=== PATIENT | male | born 1945 | race Two or more races ===

== ENCOUNTER → 2017-03-23 | Outpatient (CLI) | payer BC, MEDICARE ==
[~2017-03-23] MED LIST: ATEN25TA PO; CITA10TA4 PO; LOVA20TA2 PO
--- NOTE | 2017-03-23 10:04 | KCIC ---
INDICATION: Neurogenic claudication. Chronic low back pain. TECHNIQUE: Sagittal T1, sagittal T2, sagittal STIR, axial T1, and axial T2 sequences are provided. Comparison is from April 14, 2016. FINDINGS: There is no malalignment. There is no marrow edema. There is no worrisome marrow lesion. There is mild diffuse disc desiccation, disc height is relatively maintained. There is epidural lipomatosis beginning at the level of L1-L2 and extending through L5-S1. This is most notable at the level of L4-L5. The conus medullaris is normal in signal intensity and in position. Subcutaneous edema is noted. Probable right renal cyst is partially included. The numbering system assumes 5 lumbar type vertebral bodies. Findings by individual level are as follows: T12-L1: There is no canal or foraminal compromise. L1-L2: Minimal disc bulge and facet hypertrophy are noted with minimal foraminal narrowing. L2-L3: Disc bulge is noted, eccentric to the left. Mild facet and ligamentum flavum hypertrophy are noted. Thecal sac is compressed down to 9 mm AP, mostly secondary to epidural lipomatosis. There is left lateral recess narrowing mostly secondary to the disc bulge. There is minimal foraminal narrowing. L3-L4: There is a diffuse disc bulge. There is [id number] facet and ligamentum flavum hypertrophy. There is an apparent right synovial cyst or degenerative cyst associated with hypertrophy ligamentum flavum. This measures 10 x 5 mm. This does not compress the thecal sac. Thecal sac is compressed down to 5 mm with minimal CSF surrounding the nerve roots, again mostly secondary to the epidural lipomatosis. Foraminal narrowing is minimal. L4-L5: Disc bulge and facet and ligamentum flavum hypertrophy are noted. Thecal sac is compressed down to 7 mm AP, again mostly secondary to the epidural lipomatosis. There is rkac-iz-[id number] left foraminal narrowing. L5-S1: There is a disc bulge and broad-based left paracentral protrusion. There is facet hypertrophy. There is no canal stenosis. There is tsac-mr-ssumzkyi left foraminal narrowing. IMPRESSION: Degenerative disc disease and facet and ligamentum flavum hypertrophy are similar to prior study. Epidural lipomatosis is the primary cause of compression of the thecal sac and is also similar to prior study. Electronically signed by: Abhi Mckeon MD (03/23/2017 10:00 AM) [facility]
== END | disposition home or self-care (01) ==
LOC: KCIC MRI 07:37
PROVIDERS: ATTEND Neurological Surgery
DX: M51.36 Other intervertebral disc degeneration, lumbar region (principal); G89.29 Other chronic pain; E88.2 Lipomatosis, not elsewhere classified
CPT/HCPCS: 72148

== ENCOUNTER → 2017-05-17 | Outpatient (CLI) | payer BC, MEDICARE ==
[~2017-05-17] MED LIST changes: +GADOBUTROL 7.5 MMOL/7.5 ML VIAL IV ONE
--- NOTE | 2017-05-17 12:11 | KCIC ---
MRI of the lumbar spine without and with contrast 05/17/2017 CLINICAL HISTORY: Low back pain. History of previous lumbar spine surgery. TECHNIQUE: Unenhanced T1-weighted and T2-weighted sagittal and axial and inversion recovery sagittal images of the lumbar spine were obtained. After the intravenous administration of 11 cc of Gadavist, enhanced T1-weighted sagittal and axial images of the lumbar spine were obtained. FINDINGS: Comparison study is dated 03/23/2017. Very mild S-shaped curvature of the thoracolumbar spine is seen. Degenerative signal changes are seen involving all of the disks of the lumbar spine. Degenerative signal changes are seen within the marrow surrounding these discs. The conus medullaris is normal morphology, position, and signal characteristics. At the L1-2 disc space there is a minimal generalized disc bulge. Degenerative changes are seen involving the facet joints bilaterally. These findings do not result in significant central spinal canal or neural foraminal stenosis. At the L2-3 disc space there is a mild to moderate generalized disc bulge. This is eccentric to the left. Degenerative changes are seen involving the facet joints bilaterally. There is mild ligamentum flavum hypertrophy bilaterally. There is prominence of the posterior epidural fat. These findings when combined result in mild central spinal canal stenosis. No neural foraminal stenosis is seen. At the L3-4 disc space there patient is post right hemilaminotomy. There is a mild to moderate generalized disc bulge. Degenerative changes are seen involving the facet joints bilaterally. There is mild to moderate left ligamentum flavum hypertrophy. A small right facet joint effusion is seen. The synovial cyst seen projecting medially from the right facet joint on the previous examination has been resected. Prominence of the posterior epidural fat is seen. These findings when combine result in mild central spinal canal stenosis. No neural foraminal stenosis is seen. At the L4-5 disc space there is a mild generalized disc bulge. Degenerative changes are seen involving the facet joints bilaterally. There is mild to moderate ligamentum flavum hypertrophy bilaterally. There is marked prominence of the posterior epidural fat. These findings when combined result in moderate central spinal canal stenosis. No neural foraminal stenosis is seen. At the L5-S1 disc space there is a moderate generalized disc bulge. Superimposed on this disc bulge is a central/left paracentral focal disc protrusion. This measures 4 mm in AP diameter. Degenerative changes are seen involving the facet joints bilaterally. There is mild ligamentum flavum hypertrophy. These findings when combined do not result in significant central spinal canal or neural foraminal stenosis. IMPRESSION: 1. The patient is post right hemilaminotomy with resection of a synovial cyst at L3-4. 2. The changes of degenerative disc disease are again seen throughout the lumbar spine. These findings when combined with prominence of the posterior epidural fat result in mild central spinal canal stenosis at L2-3 and L3-4 and moderate central spinal canal stenosis at L4-5. No neural foraminal stenosis is seen. Electronically signed by: Bridger Hardin MD (05/17/2017 12:08 PM) [facility]
== END | disposition home or self-care (01) ==
LOC: KCIC MRI 10:16
PROVIDERS: ATTEND Neurological Surgery
DX: M48.061 Spinal stenosis, lumbar region without neurogenic claudication (principal); M51.36 Other intervertebral disc degeneration, lumbar region; M71.38 Other bursal cyst, other site; Z96.643 Presence of artificial hip joint, bilateral
CPT/HCPCS: 72158; 82565; A9585

== ENCOUNTER 2018-09-30 14:58 | Inpatient (IN) | payer MEDICARE ==
[~2018-09-30] VITALS: Ht 172.7 cm; Wt 113.2 kg
[~2018-09-30 14:58] MED LIST changes: -GADOBUTROL 7.5 MMOL/7.5 ML VIAL IV ONE
[2018-09-30] MEDS ORDERED: fentaNYL PF VIAL 100 MCG/2 ML VIAL IV ONE ×2 (15:45→17:15)
[2018-09-30] MEDS ORDERED: ONDANSETRON PF 4 MG/2 ML VIAL. IV ONE (15:45)
[2018-09-30] MEDS ORDERED: IV NORMAL SALINE 1000ML BAG 1,000 ML IV ONE (15:45)
[2018-09-30 15:50] LABS: BASO # 0.1 x10^3/uL (0.0-0.2); BASO % 1 % (0-3); EOS # 0.3 x10^3/uL (0.0-0.7); EOS % 3 % (0-3); HEMATOCRIT 41.5 % (39.0-53.0); HEMOGLOBIN 14.1 g/dL (13.0-17.5); LYMPH # 1.4 x10^3/uL (1.0-4.8); LYMPH % 12 % (24-48); MEAN CORPUSCULAR HEMOGLOBIN 35 pg (25-35); MEAN CORPUSCULAR HGB CONC 34 g/dL (31-37); MEAN CORPUSCULAR VOLUME 104 fL (79-100); MONO # 1.3 x10^3/uL (0.0-1.1); MONO % 11 % (0-9); NEUT # 8.2 x10^3uL (1.8-7.7); NEUT % 73 % (31-73); PLATELET COUNT 223 x10^3/uL (140-400); RED BLOOD COUNT 3.98 x10^6/uL (4.30-5.70); RED CELL DISTRIBUTION WIDTH 12.9 % (11.5-14.5); WHITE BLOOD COUNT 11.3 x10^3/uL (4.0-11.0)
--- NOTE | 2018-09-30 15:51 | RAD ---
CHEST PA LATERAL History: EPIGASTRIC PAIN Comparison: 04/28/2009 portable chest x-ray exam. Findings: The cardiomediastinal silhouette is normal. Pulmonary vasculature is normal. The lungs are clear. No pleural effusion or pneumothorax is seen. There is no acute bone abnormality. Osteopenia noted. IMPRESSION: No acute cardiopulmonary process. Electronically signed by: Cornel Orourke MD (09/30/2018 3:48 PM) [facility]
[2018-09-30 15:54] LABS: FECAL OB PT POSITIVE (NEG)
--- NOTE | 2018-09-30 15:57 | PHYS DOC ---
Past Medical History Past Medical History: Depression, High Cholesterol, Hypertension, Hypothyroid Past Surgical History: Appendectomy, Other Additional Past Surgical Histo: HIP REPLACEMENT Alcohol Use: Occasionally Drug Use: None Adult General Chief Complaint Chief Complaint: ABDOMINAL PAIN HPI HPI Patient is a 73 year old male who presents with rectal pain with no bowel movement since . Patient states yesterday he had a small bowel movement of hard round stool. Patient states he also is having urinary retention and hasn 't drank much fluids today but he has been eating and drinking. Patient states the only thing he has had today is coffee and a cookie. Patient states he did eat yesterday and they did go out to eat last night. Patient denies nausea and vomiting, fevers, chest pain, shortness of air, dizziness. Patient is rating his pain a 9 out of 10 and states he feels pressure in his lower abdomen and rectum and is cramping at times. Review of Systems Review of Systems Constitutional: Denies fever or chills [] Eyes: Denies change in visual acuity, redness, or eye pain [] HENT: Denies nasal congestion or sore throat [] Respiratory: Denies cough or shortness of breath [] Cardiovascular: No additional information not addressed in HPI [] GI: abdominal pain, denies nausea, vomiting, bloody stools or diarrhea [] : Rectal pain. Urinary retention. Denies dysuria or hematuria [] Musculoskeletal: Denies back pain or joint pain [] Integument: Denies rash or skin lesions [] Neurologic: Denies headache, focal weakness or sensory changes [] All other systems were reviewed and found to be within normal limits, except as documented in this note. Current Medications Current Medications Current Medications Medications (Trade) Dose Ordered Sig/[facility] Start Time Stop Time Status Last Admin Dose Admin Acetaminophen (Tylenol) 650 mg PRN Q4HRS PRN 09/30/18 18:30 10/01/18 18:29 Fentanyl Citrate (Fentanyl 2ml Vial) 50 mcg PRN Q1HR PRN 09/30/18 18:30 10/01/18 18:29 Iohexol (Omnipaque 300 Mg/ml) 75 ml 1X ONCE 09/30/18 16:00 09/30/18 16:01 DC 09/30/18 16:00 75 ML Ondansetron HCl (Zofran) 4 mg PRN Q8HRS PRN 09/30/18 18:30 10/01/18 18:29 Sodium Chloride 1,000 ml @ 1,000 mls/hr 1X ONCE 09/30/18 15:45 09/30/18 16:44 DC 09/30/18 16:01 1,000 MLS/HR Allergies Allergies Allergies Coded Allergies Type Severity Reaction Last Updated Verified No Known Drug Allergies 10/16/15 No Physical Exam Physical Exam Constitutional: Well developed, well nourished, no acute distress, non-toxic appearance. [] HENT: Normocephalic, atraumatic, bilateral external ears normal, oropharynx moist, no oral exudates, nose normal. [] Eyes: PERRLA, EOMI, conjunctiva normal, no discharge. [] Neck: Normal range of motion, no tenderness, supple, no stridor. [] Cardiovascular:Heart rate regular rhythm, no murmur [] Lungs & Thorax: Bilateral breath sounds clear to auscultation [] Abdomen: Bowel sounds normal, soft, no tenderness, no masses, no pulsatile masses. [] Skin: Warm, dry, no erythema, no rash. [] Back: No tenderness, no CVA tenderness. [] Extremities: No tenderness, no cyanosis, no clubbing, ROM intact, no edema. [] Neurologic: Alert and oriented X 3, normal motor function, normal sensory function, no focal deficits noted. [] Psychologic: Affect normal, judgement normal, mood normal. [] Current Patient Data Vital Signs Vital Signs Date Time Temp Pulse Resp B/P (MAP) Pulse Ox O2 Delivery O2 Flow Rate FiO2 09/30/18 17:58 14 98 Room Air 09/30/18 15:08 98.8 77 145/85 (105) 98.8 Lab Values Laboratory Tests Test 09/30/18 15:35 White Blood Count 11.3 x10^3/uL (4.0-11.0) H Red Blood Count 3.98 x10^6/uL (4.30-5.70) L Hemoglobin 14.1 g/dL (13.0-17.5) Hematocrit 41.5 % (39.0-53.0) Mean Corpuscular Volume 104 fL (79-100) H Mean Corpuscular Hemoglobin 35 pg (25-35) Mean Corpuscular Hemoglobin Concent 34 g/dL (31-37) Red Cell Distribution Width 12.9 % (11.5-14.5) Platelet Count 223 x10^3/uL (140-400) Neutrophils (%) (Auto) 73 % (31-73) Lymphocytes (%) (Auto) 12 % (24-48) L Monocytes (%) (Auto) 11 % (0-9) H Eosinophils (%) (Auto) 3 % (0-3) Basophils (%) (Auto) 1 % (0-3) Neutrophils # (Auto) 8.2 x10^3uL (1.8-7.7) H Lymphocytes # (Auto) 1.4 x10^3/uL (1.0-4.8) Monocytes # (Auto) 1.3 x10^3/uL (0.0-1.1) H Eosinophils # (Auto) 0.3 x10^3/uL (0.0-0.7) Basophils # (Auto) 0.1 x10^3/uL (0.0-0.2) Stool Occult Blood Positive (NEG) Sodium Level 141 mmol/L (136-145) Potassium Level 3.8 mmol/L (3.5-5.1) Chloride Level 102 mmol/L (98-107) Carbon Dioxide Level 30 mmol/L (21-32) Anion Gap 9 (6-14) Blood Urea Nitrogen 22 mg/dL (8-26) Creatinine 1.0 mg/dL (0.7-1.3) Estimated GFR (Cockcroft-Gault) 73.2 BUN/Creatinine Ratio 22 (6-20) H Glucose Level 95 mg/dL (70-99) Calcium Level 9.1 mg/dL (8.5-10.1) Total Bilirubin 0.5 mg/dL (0.2-1.0) Aspartate Amino Transferase (AST) 22 U/L (15-37) Alanine Aminotransferase (ALT) 45 U/L (16-63) Alkaline Phosphatase 88 U/L (46-116) Troponin I Quantitative 0.114 ng/mL (0.000-0.055) Total Protein 7.9 g/dL (6.4-8.2) Albumin 3.6 g/dL (3.4-5.0) Albumin/Globulin Ratio 0.8 (1.0-1.7) L Lipase 113 U/L (73-393) Laboratory Tests 09/30/18 15:35 Laboratory Tests 09/30/18 15:35 EKG EKG Sinus Rhythm and no STEMI Interpretation Time: [address] Womack Radiology/Procedures Radiology/Procedures [] Impressions: [facility] [address] [place] [address] IMAGING REPORT Signed PATIENT: CAT DELGADO ACCOUNT: [id number] : 1945 LOCATION: ER AGE: 73 SEX: M EXAM STATUS: PRE ER ORD. PHYSICIAN: SAMANTHA ROSALES APRN REASON: abdominal pain, constipation PROCEDURE: CT ABD PELV W/ IV CONTRST ONLY CT SCAN OF THE ABDOMEN AND PELVIS WITH IV CONTRAST. History: Abdominal pain Comparison:None. Procedure: Contiguous axial images of the abdomen and pelvis were performed after the administration of 75 cc of Omni 300 IV contrast and without oral contrast. CT Abdomen with contrast: Findings: Liver: Unremarkable Spleen: Unremarkable Pancreas: Unremarkable Adrenal Glands: Unremarkable Kidneys: There is a 2 cm low-density lesion arising from the upper pole of the right kidney laterally. 6 mm hypoattenuating lesion lesion the left is too small to characterize. There is no mass or lymphadenopathy. There is no free air. There is no free fluid. CT Pelvis with Contrast: Findings: The urinary bladder appears normal. There is no free fluid. There is no lymphadenopathy. The appendix is not seen. There is beam Nelson artifact due to prior bilateral total hip arthroplasty. Impression: 1. Indeterminate lesions in the kidneys bilaterally. Patient should have follow-up ultrasound kidneys as an outpatient. 2. No acute findings. PQRS Compliance Statement: One or more of the following individualized dose reduction techniques were utilized for this examination: 1. Automated exposure control 2. Adjustment of the mA and/or kV according to patient size 3. Use of iterative reconstruction technique Electronically signed by: Kulwinder Baez III, MD (09/30/2018 4:47 PM) [facility] DICTATED and SIGNED BY: KULWINDER BAEZ III, MD DATE: 09/30/18 1647 [facility] [address] [place] [address] IMAGING REPORT Signed PATIENT: CAT DELGADO ACCOUNT: [id number] : 1945 LOCATION: ER AGE: 73 SEX: M EXAM STATUS: PRE ER ORD. PHYSICIAN: SAMANTHA ROSALES APRN REASON: pain PROCEDURE: CHEST PA & LATERAL CHEST PA LATERAL History: EPIGASTRIC PAIN Comparison: 04/28/2009 portable chest x-ray exam. Findings: The cardiomediastinal silhouette is normal. Pulmonary vasculature is normal. The lungs are clear. No pleural effusion or pneumothorax is seen. There is no acute bone abnormality. Osteopenia noted. IMPRESSION: No acute cardiopulmonary process. Electronically signed by: Cornel Leyva MD (09/30/2018 3:48 PM) [facility] DICTATED and SIGNED BY: CORNEL LEYVA MD DATE: 09/30/18 1548 Course & Med Decision Making Course & Med Decision Making Patient is a 73 year old male who presents with rectal pain with no bowel movement since . Patient states yesterday he had a small bowel movement of hard round stool. Patient states he also is having urinary retention and hasn 't drank much fluids today but he has been eating and drinking. Patient states the only thing he has had today is coffee and a cookie. Patient states he did eat yesterday and they did go out to eat last night. Patient denies nausea and vomiting, fevers, chest pain, shortness of air, dizziness. Patient is rating his pain a 9 out of 10 and states he feels pressure in his lower abdomen and rectum and is cramping at times. Alert and oriented. Speaks in full clear senses. Mucous membranes are moist. Skin is pink warm and dry. Vital signs are within normal limits. Patient states he does not feel distended or bloated he just feels pressure in his lower abdomen. Abdomen is slightly distended but soft and tender to right and left lower quadrants and lower mid abdomen. Lungs are clear to auscultation all lobes. Rectal exam is done and fecal occult sent to lab. There is stool in rectal vault that can be felt at the tip of my index finger. The patient does have 2 dime-sized nonbleeding, nontender humeral rates to 11 and 12:00 on the rectum. Bladder scan shows 639ml in the bladder. Patient is currently refusing a catheter states he wanted to wait after CT scanning and possible enema to see if he can urinate on his own. Troponin is elevated at 0.114. EKG showed no STEMI. CT shows 1. Indeterminate lesions in the kidneys bilaterally. Patient should have follow-up ultrasound kidneys as an outpatient. 2. No acute findings. Chest xray shows no acute findings. Heart score 6. Fecal occult positive for blood. Patient had a soapsuds enema and had a bowel movement and urinated. Patient states he is feeling much better. Post void residual was 119ml and this was not done directly after the patient voided, so some time had passed. Patient is notified of his CT, x-ray, blood results. Patient is told that he will be admitted to the hospital with consult of GI and cardiology. I spoke to Dr. Valdovinos concerning admission of the patient. Rectal Exam: Normal tone, No mass, Positive control Stool: Brown Guaiac: Positive Krista HERNANDEZ marine architect Dragon Disclaimer Dragon Disclaimer This electronic medical record was generated, in whole or in part, using a voice recognition dictation system. Departure Departure Impression: Primary Impression: Elevated troponin Additional Impression: Abdominal pain Disposition: ADMITTED INPATIENT Admitting Physician: Bright Perry Condition: STABLE Referrals: BRIGHT LONDON DO (PCP) Problem Qualifiers Additional Impression: Abdominal pain Abdominal location: lower abdomen, unspecified Qualified Codes: R10.30 - Lower abdominal pain, unspecified SAMANTHA ROSALES APRN Sep 30, 2018 15:57
[2018-09-30 15:59] LABS: CALCIUM 9.1 mg/dL (8.5-10.1); GFR 73.2; POTASSIUM 3.8 mmol/L (3.5-5.1)
[2018-09-30] MEDS ORDERED: IOHEXOL 300 MG/ML 100ML VIAL. IV ONE (16:00)
[2018-09-30 16:05] LABS: ALBUMIN 3.6 g/dL (3.4-5.0); ALBUMIN/GLOBULIN RATIO 0.8 (1.0-1.7); TOTAL BILIRUBIN 0.5 mg/dL (0.2-1.0); TOTAL PROTEIN 7.9 g/dL (6.4-8.2)
--- NOTE | 2018-09-30 16:51 | RAD ---
CT SCAN OF THE ABDOMEN AND PELVIS WITH IV CONTRAST. History: Abdominal pain Comparison:None. Procedure: Contiguous axial images of the abdomen and pelvis were performed after the administration of 75 cc of Omni 300 IV contrast and without oral contrast. CT Abdomen with contrast: Findings: Liver: Unremarkable Spleen: Unremarkable Pancreas: Unremarkable Adrenal Glands: Unremarkable Kidneys: There is a 2 cm low-density lesion arising from the upper pole of the right kidney laterally. 6 mm hypoattenuating lesion lesion the left is too small to characterize. There is no mass or lymphadenopathy. There is no free air. There is no free fluid. CT Pelvis with Contrast: Findings: The urinary bladder appears normal. There is no free fluid. There is no lymphadenopathy. The appendix is not seen. There is beam Nelson artifact due to prior bilateral total hip arthroplasty. Impression: 1. Indeterminate lesions in the kidneys bilaterally. Patient should have follow-up ultrasound kidneys as an outpatient. 2. No acute findings. PQRS Compliance Statement: One or more of the following individualized dose reduction techniques were utilized for this examination: 1. Automated exposure control 2. Adjustment of the mA and/or kV according to patient size 3. Use of iterative reconstruction technique Electronically signed by: John Stock III, MD (09/30/2018 4:47 PM) [facility]
[2018-09-30] MEDS ORDERED: ACETAMINOPHEN 325 MG TABLET. PO PRN (18:30)
[2018-09-30] MEDS ORDERED: fentaNYL PF VIAL 100 MCG/2 ML VIAL IV PRN (18:30)
[2018-09-30] MEDS ORDERED: ONDANSETRON PF 4 MG/2 ML VIAL. IV PRN (18:30)
[2018-09-30 19:50] VITALS: BP 141/81
--- NOTE | 2018-09-30 21:19 | PDOC1 ---
History and Physical Date of Admission Date of Admission DATE: 09/30/18 TIME: 21:18 Identification/Chief Complaint Chief Complaint SEEN IN ER , presents with rectal pain with no bowel movement since . Patient states yesterday he had a small bowel movement of hard round stool. Patient states he also is having urinary retention and hasn't drank much fluids today but he has been eating and drinking. Patient states the only thing he has had today is coffee and a cookie. Patient states he did eat yesterday and they did go out to eat last night. Patient denies nausea and vomiting, fevers, chest pain, shortness of air, dizziness. Patient is rating his pain a 9 out of 10 and states he feels pressure in his lower abdomen and rectum and is cramping GIVEN TAP H2O ENEMA IN ER Past Medical History Past Medical History Past Medical History Past Medical History: Depression, High Cholesterol, Hypertension, Hypothyroid Past Surgical History: Appendectomy, Other Additional Past Surgical Histo: HIP REPLACEMENT Alcohol Use: Occasionally Drug Use: None family hx obesity Cardiovascular: Hyperlipidemia Family History Family History: Hypertension Social History Smoke: No ALCOHOL: none Drugs: None Current Problem List Problem List Problems Medical Problems: (1) Abdominal pain Status: Acute (2) Elevated troponin Status: Acute Current Medications Current Medications Current Medications Fentanyl Citrate (Fentanyl 2ml Vial) 50 mcg 1X ONCE IV Last administered on at 16:03; Start 09/30/18 at 15:45; Stop 09/30/18 at 15:50; Status DC Ondansetron HCl (Zofran) 4 mg 1X ONCE IV Last administered on 09/30/18 16:01 ; Start 09/30/18 at 15:45; Stop 09/30/18 at 15:50; Status DC Sodium Chloride 1,000 ml @ 1,000 mls/hr 1X ONCE IV Last administered on 16:01; Start 09/30/18 at 15:45; Stop 09/30/18 at 16:44; Status DC Iohexol (Omnipaque 300 Mg/ml) 75 ml 1X ONCE IV Last administered on 09/30/18 16:00; Start 09/30/18 at 16:00; Stop 09/30/18 at 16:01; Status DC Fentanyl Citrate (Fentanyl 2ml Vial) 50 mcg 1X ONCE IV Last administered on at 17:58; Start 09/30/18 at 17:15; Stop 09/30/18 at 17:16; Status DC Ondansetron HCl (Zofran) 4 mg PRN Q8HRS PRN IV NAUSEA/VOMITING; Start 09/30/18 at 18:30; Stop 10/01/18 at 18:29 Fentanyl Citrate (Fentanyl 2ml Vial) 50 mcg PRN Q1HR PRN IV PAIN; Start at 18:30; Stop 10/01/18 at 18:29 Acetaminophen (Tylenol) 650 mg PRN Q4HRS PRN PO FEVER; Start 09/30/18 at 18:30 ; Stop 10/01/18 at 18:29 Active Scripts Active Reported Citalopram Hbr (Citalopram Hydrobromide) 10 Mg Tablet 1 Tab PO DAILY Atenolol 25 Mg Tablet 1 Tab PO DAILY Lovastatin 20 Mg Tablet 1 Tab PO DAILY Allergies Allergies: Coded Allergies: No Known Drug Allergies (Unverified , 10/16/15) ROS Review of System Review of Systems Review of Systems Constitutional: Denies fever or chills [] Eyes: Denies change in visual acuity, redness, or eye pain [] HENT: Denies nasal congestion or sore throat [] Respiratory: Denies cough or shortness of breath [] Cardiovascular: No additional information not addressed in HPI [] GI: abdominal pain, denies nausea, vomiting, bloody stools or diarrhea [] : Rectal pain. Urinary retention. Denies dysuria or hematuria [] Musculoskeletal: Denies back pain or joint pain [] Integument: Denies rash or skin lesions [] Neurologic: Denies headache, focal weakness or sensory changes [] 14 PT systems were reviewed and found to be within normal limits, except as documented PSYCHOLOGICAL ROS: No: Anxiety, Behavioral Disorder, Concentration difficultie , Decreased libido, Depression, Disorientation, Hallucinations, Hostility, Irritablity, Memory difficulties, Mood Swings, Obsessive thoughts, Physical abuse, Sexual abuse, Sleep disturbances, Suicidal ideation, Other Eyes: No Blurry vision, No Decreased vision, No Double vision, No Dry eyes, No Excessive tearing, No Eye Pain, No Itchy Eyes, No Loss of vision, No Photophobia , No Scotomata, No Uses contacts, No Uses glasses, No Other Respiratory: No: Cough, Hemoptysis, Orthopnea, Pleuritic Pain, Shortness of breath, SOB with excertion, Sputum Changes, Stridor, Tachypnea, Wheezing, Other Gastrointestinal: Yes Constipation Skin: No Dry Skin, No Eczema, No Hair Changes, No Lumps, No Mole Changes, No Mottling, No Nail Changes, No Pruritus, No Rash, No Skin Lesion Changes, No Other, No Acne Physical Exam Physical Exam Physical Exam Physical Exam Constitutional: Well developed, well nourished, MILD acute distress, non-toxic appearance. [] HENT: Normocephalic, atraumatic, bilateral external ears normal, oropharynx moist, no oral exudates, nose normal. [] Eyes: PERRLA, EOMI, conjunctiva normal, no discharge. [] Neck: Normal range of motion, no tenderness, supple, no stridor. [] Cardiovascular:Heart rate regular rhythm, no murmur [] Lungs & Thorax: Bilateral breath sounds clear to auscultation [] Abdomen: Bowel sounds normal, soft, no tenderness, no masses, no pulsatile masses. [] Skin: Warm, dry, no erythema, no rash. [] Back: No tenderness, no CVA tenderness. [] Extremities: No tenderness, no cyanosis, no clubbing, ROM intact, no edema. [] Neurologic: Alert and oriented X 3, normal motor function, normal sensory function, no focal deficits noted. [] Psychologic: Affect normal, judgement normal, mood normal. [] General: Oriented X3, Cooperative, mild distress HEENT: Atraumatic, PERRLA, EOMI, Mucous membr. moist/pink Lungs: Clear to auscultation, Normal air movement Heart: RRR Breasts: Not examined Abdomen: Soft Rectal Exam: not examined Extremities: No cyanosis Skin: No rashes, No breakdown Neuro: Normal speech, Cranial nerves 3-12 NL Psych/Mental Status: Mental status NL, Mood NL Vitals Vitals Vital Signs Date Time Temp Pulse Resp B/P (MAP) Pulse Ox O2 Delivery O2 Flow Rate FiO2 09/30/18 19:50 98.2 64 18 141/81 (101) 96 Room Air 98.2 Labs Labs Laboratory Tests Test 09/30/18 15:35 White Blood Count 11.3 x10^3/uL (4.0-11.0) Red Blood Count 3.98 x10^6/uL (4.30-5.70) Hemoglobin 14.1 g/dL (13.0-17.5) Hematocrit 41.5 % (39.0-53.0) Mean Corpuscular Volume 104 fL (79-100) Mean Corpuscular Hemoglobin 35 pg (25-35) Mean Corpuscular Hemoglobin Concent 34 g/dL (31-37) Red Cell Distribution Width 12.9 % (11.5-14.5) Platelet Count 223 x10^3/uL (140-400) Neutrophils (%) (Auto) 73 % (31-73) Lymphocytes (%) (Auto) 12 % (24-48) Monocytes (%) (Auto) 11 % (0-9) Eosinophils (%) (Auto) 3 % (0-3) Basophils (%) (Auto) 1 % (0-3) Neutrophils # (Auto) 8.2 x10^3uL (1.8-7.7) Lymphocytes # (Auto) 1.4 x10^3/uL (1.0-4.8) Monocytes # (Auto) 1.3 x10^3/uL (0.0-1.1) Eosinophils # (Auto) 0.3 x10^3/uL (0.0-0.7) Basophils # (Auto) 0.1 x10^3/uL (0.0-0.2) Stool Occult Blood Positive (NEG) Sodium Level 141 mmol/L (136-145) Potassium Level 3.8 mmol/L (3.5-5.1) Chloride Level 102 mmol/L (98-107) Carbon Dioxide Level 30 mmol/L (21-32) Anion Gap 9 (6-14) Blood Urea Nitrogen 22 mg/dL (8-26) Creatinine 1.0 mg/dL (0.7-1.3) Estimated GFR (Cockcroft-Gault) 73.2 BUN/Creatinine Ratio 22 (6-20) Glucose Level 95 mg/dL (70-99) Calcium Level 9.1 mg/dL (8.5-10.1) Total Bilirubin 0.5 mg/dL (0.2-1.0) Aspartate Amino Transf (AST/SGOT) 22 U/L (15-37) Alanine Aminotransferase (ALT/SGPT) 45 U/L (16-63) Alkaline Phosphatase 88 U/L (46-116) Troponin I Quantitative 0.114 ng/mL (0.000-0.055) Total Protein 7.9 g/dL (6.4-8.2) Albumin 3.6 g/dL (3.4-5.0) Albumin/Globulin Ratio 0.8 (1.0-1.7) Lipase 113 U/L (73-393) Laboratory Tests Test 09/30/18 15:35 White Blood Count 11.3 x10^3/uL (4.0-11.0) Red Blood Count 3.98 x10^6/uL (4.30-5.70) Hemoglobin 14.1 g/dL (13.0-17.5) Hematocrit 41.5 % (39.0-53.0) Mean Corpuscular Volume 104 fL (79-100) Mean Corpuscular Hemoglobin 35 pg (25-35) Mean Corpuscular Hemoglobin Concent 34 g/dL (31-37) Red Cell Distribution Width 12.9 % (11.5-14.5) Platelet Count 223 x10^3/uL (140-400) Neutrophils (%) (Auto) 73 % (31-73) Lymphocytes (%) (Auto) 12 % (24-48) Monocytes (%) (Auto) 11 % (0-9) Eosinophils (%) (Auto) 3 % (0-3) Basophils (%) (Auto) 1 % (0-3) Neutrophils # (Auto) 8.2 x10^3uL (1.8-7.7) Lymphocytes # (Auto) 1.4 x10^3/uL (1.0-4.8) Monocytes # (Auto) 1.3 x10^3/uL (0.0-1.1) Eosinophils # (Auto) 0.3 x10^3/uL (0.0-0.7) Basophils # (Auto) 0.1 x10^3/uL (0.0-0.2) Stool Occult Blood Positive (NEG) Sodium Level 141 mmol/L (136-145) Potassium Level 3.8 mmol/L (3.5-5.1) Chloride Level 102 mmol/L (98-107) Carbon Dioxide Level 30 mmol/L (21-32) Anion Gap 9 (6-14) Blood Urea Nitrogen 22 mg/dL (8-26) Creatinine 1.0 mg/dL (0.7-1.3) Estimated GFR (Cockcroft-Gault) 73.2 BUN/Creatinine Ratio 22 (6-20) Glucose Level 95 mg/dL (70-99) Calcium Level 9.1 mg/dL (8.5-10.1) Total Bilirubin 0.5 mg/dL (0.2-1.0) Aspartate Amino Transf (AST/SGOT) 22 U/L (15-37) Alanine Aminotransferase (ALT/SGPT) 45 U/L (16-63) Alkaline Phosphatase 88 U/L (46-116) Troponin I Quantitative 0.114 ng/mL (0.000-0.055) Total Protein 7.9 g/dL (6.4-8.2) Albumin 3.6 g/dL (3.4-5.0) Albumin/Globulin Ratio 0.8 (1.0-1.7) Lipase 113 U/L (73-393) Images Images CT SCAN OF THE ABDOMEN AND PELVIS WITH IV CONTRAST. History: Abdominal pain Comparison:None. Procedure: Contiguous axial images of the abdomen and pelvis were performed after the administration of 75 cc of Omni 300 IV contrast and without oral contrast. CT Abdomen with contrast: Findings: Liver: Unremarkable Spleen: Unremarkable Pancreas: Unremarkable Adrenal Glands: Unremarkable Kidneys: There is a 2 cm low-density lesion arising from the upper pole of the right kidney laterally. 6 mm hypoattenuating lesion lesion the left is too small to characterize. There is no mass or lymphadenopathy. There is no free air. There is no free fluid. CT Pelvis with Contrast: Findings: The urinary bladder appears normal. There is no free fluid. There is no lymphadenopathy. The appendix is not seen. There is beam Nelson artifact due to prior bilateral total hip arthroplasty. Impression: 1. Indeterminate lesions in the kidneys bilaterally. Patient should have follow-up ultrasound kidneys as an outpatient. 2. No acute findings. PQRS Compliance Statement: One or more of the following individualized dose reduction techniques were utilized for this examination: 1. Automated exposure control 2. Adjustment of the mA and/or kV according to patient size 3. Use of iterative reconstruction technique Electronically signed by: John Stock III, MD (09/30/2018 4:47 PM) [facility] [place] [facility] [place] Prophylaxis Ordered VTE Prophylaxis Devices: Yes VTE Pharmacological Prophylaxi: Yes Assessment/Plan Assessment/Plan IMPRESSION 1. URINARY RETENTION 2. FECAL IMPACTION 3. MORBID OBESITY 4. HYPERLIPIDEMIA PLAN ENEMA UNTIL CLEAR STRAIGHT CATH FOR RETENTION HOME MEDS INC ACTIVITY DVT PROPHYLAXIS PEDRITO LEWIS MD Sep 30, 2018 21:19
[2018-09-30] MEDS: ENOXAPARIN 40 MG/0.4 ML SYRINGE. SQ SCH (21:30)
[2018-09-30 23:06] VITALS: BP 138/79
[2018-09-30 23:58] LABS: BILIRUBIN,URINE NEGATIVE (NEG); CLARITY,URINE CLEAR; COLOR,URINE YELLOW; NITRITE,URINE NEGATIVE (NEG); PH,URINE 6.5; PROTEIN,URINE NEGATIVE (NEG-TRACE)
[2018-10-01 00:22] LABS: BACTERIA,URINE 0 /HPF (0-FEW); HYALINE CASTS, URINE FEW /HPF; SQUAMOUS EPITHELIAL CELL,UR MOD /LPF
[2018-10-01] MEDS ORDERED: LEVO50TA5 PO (01:59)
[2018-10-01] MEDS ORDERED: CITA20TA6 PO (01:59)
[2018-10-01] MEDS ORDERED: LOVA40TA2 PO (01:59)
[2018-10-01] MEDS ORDERED: ATEN50TA PO (01:59)
[2018-10-01 02:50] VITALS: BP 136/80
[2018-10-01 06:21] LABS: BASO % 0 % (0-3); EOS # 0.4 x10^3/uL (0.0-0.7); EOS % 5 % (0-3); HEMATOCRIT 36.5 % (39.0-53.0); HEMOGLOBIN 12.3 g/dL (13.0-17.5); LYMPH # 1.2 x10^3/uL (1.0-4.8); LYMPH % 16 % (24-48); MEAN CORPUSCULAR HEMOGLOBIN 35 pg (25-35); MEAN CORPUSCULAR HGB CONC 34 g/dL (31-37); MEAN CORPUSCULAR VOLUME 105 fL (79-100); MONO # 0.7 x10^3/uL (0.0-1.1); MONO % 9 % (0-9); NEUT # 5.5 x10^3uL (1.8-7.7); NEUT % 71 % (31-73); PLATELET COUNT 190 x10^3/uL (140-400); RED CELL DISTRIBUTION WIDTH 12.7 % (11.5-14.5); WHITE BLOOD COUNT 7.8 x10^3/uL (4.0-11.0)
[2018-10-01 06:28] LABS: CALCIUM 8.5 mg/dL (8.5-10.1); CREATININE 0.9 mg/dL (0.7-1.3); GFR 82.7; POTASSIUM 4.3 mmol/L (3.5-5.1)
[2018-10-01 07:15] VITALS: BP 148/88
--- NOTE | 2018-10-01 08:07 | EKG ---
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
--- NOTE | 2018-10-01 09:02 | PDOC2 ---
IZABELAADAMFUADYUMIKO RIVERO 10/01/18 0902: CARDIAC CONSULT DATE OF CONSULT Date of Consult DATE: 10/01/18 TIME: 08:53 REASON FOR CONSULT Reason for Consult: Elevated troponin REFERRING PHYSICIAN Referring Physician: Rylie Chaves APRN SOURCE Source: Chart review, Patient HISTORY OF PRESENT ILLNESS HISTORY OF PRESENT ILLNESS This is a 73 yo male who presented secondary to constipation since Monday. Strained multiple times, but was unable to have an significant relief. Began to have difficulty urinating so he came to the ED for further evaluation. Troponin was checked in ED for unknown reasons and was noted to be mildly elevated, which prompted this consult. Was given enema in ED, which significantly improved symptoms. Ivette any chest pain, palpitations, dizziness, diaphoresis, orthopnea, or LE edema. Does reports KIRKLAND, which has been present for the last couple of years. Primary care referred for stress test last year at [facility] due to KIRKLAND, which he reports as normal. PAST MEDICAL HISTORY Cardiovascular: HTN, Hyperlipidemia Pulmonary: No pertinent hx CENTRAL NERVOUS SYSTEM: Other (no pertinent hx) GI: Constipation, GERD, Other (Desai's esophagus) Heme/Onc: No pertinent hx Hepatobiliary: No pertinent hx Psych: Anxiety Musculoskeletal: low back pain, Osteoarthritis Rheumatologic: No pertinent hx Infectious disease: No pertinent hx ENT: No pertinent hx Renal/: No pertinent hx Endocrine: Hypothyroidism Dermatology: No pertinent hx PAST SURGICAL HISTORY Past Surgical History: Appendectomy, Total hip replacement (bilateral ), Other (back surgery) FAMILY HISTORY Family History: Coronary Artery Disease (father ), High Cholestrol SOCIAL HISTORY Smoke: Quit (1990) ALCOHOL: occassional Drugs: None Lives: with Family CURRENT MEDICATIONS CURRENT MEDICATIONS Current Medications Medications (Trade) Dose Ordered Sig/Xiao Route PRN Reason Start Time Stop Time Status Last Admin Dose Admin Fentanyl Citrate (Fentanyl 2ml Vial) 50 mcg 1X ONCE IV 09/30/18 15:45 09/30/18 15:50 DC 09/30/18 16:03 Ondansetron HCl (Zofran) 4 mg 1X ONCE IV 09/30/18 15:45 09/30/18 15:50 DC 09/30/18 16:01 Sodium Chloride 1,000 ml @ 1,000 mls/hr 1X ONCE IV 09/30/18 15:45 09/30/18 16:44 DC 09/30/18 16:01 Iohexol (Omnipaque 300 Mg/ml) 75 ml 1X ONCE IV 09/30/18 16:00 09/30/18 16:01 DC 09/30/18 16:00 Fentanyl Citrate (Fentanyl 2ml Vial) 50 mcg 1X ONCE IV 09/30/18 17:15 09/30/18 17:16 DC 09/30/18 17:58 ALLERGIES ALLERGIES: Coded Allergies: No Known Drug Allergies (Unverified , 10/16/15) ROS Review of System 14 point ROS conducted with pertinent positives noted above in HPI. PHYSICAL EXAM General: Alert, Oriented X3, Cooperative, No acute distress HEENT: Atraumatic, Mucous membr. moist/pink Lungs: Clear to auscultation Heart: Regular rate, Normal S1, Normal S2 Abdomen: Soft, No tenderness Extremities: No edema, Normal pulses Skin: No significant lesion Neuro: Normal speech, Sensation intact Psych/Mental Status: Mental status NL, Mood NL MUSCULOSKELETAL: No deformity VITALS VITALS Vital Signs Date Time Temp Pulse Resp B/P (MAP) Pulse Ox O2 Delivery O2 Flow Rate FiO2 10/01/18 07:15 98.5 65 18 148/88 (108) 97 Room Air 98.5 LABS Lab: Laboratory Tests Test 09/30/18 15:35 09/30/18 21:25 09/30/18 23:45 10/01/18 05:43 White Blood Count 11.3 x10^3/uL (4.0-11.0) 7.8 x10^3/uL (4.0-11.0) Red Blood Count 3.98 x10^6/uL (4.30-5.70) 3.50 x10^6/uL (4.30-5.70) Hemoglobin 14.1 g/dL (13.0-17.5) 12.3 g/dL (13.0-17.5) Hematocrit 41.5 % (39.0-53.0) 36.5 % (39.0-53.0) Mean Corpuscular Volume 104 fL (79-100) 105 fL (79-100) Mean Corpuscular Hemoglobin 35 pg (25-35) 35 pg (25-35) Mean Corpuscular Hemoglobin Concent 34 g/dL (31-37) 34 g/dL (31-37) Red Cell Distribution Width 12.9 % (11.5-14.5) 12.7 % (11.5-14.5) Platelet Count 223 x10^3/uL (140-400) 190 x10^3/uL (140-400) Neutrophils (%) (Auto) 73 % (31-73) 71 % (31-73) Lymphocytes (%) (Auto) 12 % (24-48) 16 % (24-48) Monocytes (%) (Auto) 11 % (0-9) 9 % (0-9) Eosinophils (%) (Auto) 3 % (0-3) 5 % (0-3) Basophils (%) (Auto) 1 % (0-3) 0 % (0-3) Neutrophils # (Auto) 8.2 x10^3uL (1.8-7.7) 5.5 x10^3uL (1.8-7.7) Lymphocytes # (Auto) 1.4 x10^3/uL (1.0-4.8) 1.2 x10^3/uL (1.0-4.8) Monocytes # (Auto) 1.3 x10^3/uL (0.0-1.1) 0.7 x10^3/uL (0.0-1.1) Eosinophils # (Auto) 0.3 x10^3/uL (0.0-0.7) 0.4 x10^3/uL (0.0-0.7) Basophils # (Auto) 0.1 x10^3/uL (0.0-0.2) 0.0 x10^3/uL (0.0-0.2) Stool Occult Blood Positive (NEG) Sodium Level 141 mmol/L (136-145) 142 mmol/L (136-145) Potassium Level 3.8 mmol/L (3.5-5.1) 4.3 mmol/L (3.5-5.1) Chloride Level 102 mmol/L (98-107) 105 mmol/L (98-107) Carbon Dioxide Level 30 mmol/L (21-32) 31 mmol/L (21-32) Anion Gap 9 (6-14) 6 (6-14) Blood Urea Nitrogen 22 mg/dL (8-26) 15 mg/dL (8-26) Creatinine 1.0 mg/dL (0.7-1.3) 0.9 mg/dL (0.7-1.3) Estimated GFR (Cockcroft-Gault) 73.2 82.7 BUN/Creatinine Ratio 22 (6-20) Glucose Level 95 mg/dL (70-99) 101 mg/dL (70-99) Calcium Level 9.1 mg/dL (8.5-10.1) 8.5 mg/dL (8.5-10.1) Total Bilirubin 0.5 mg/dL (0.2-1.0) Aspartate Amino Transf (AST/SGOT) 22 U/L (15-37) Alanine Aminotransferase (ALT/SGPT) 45 U/L (16-63) Alkaline Phosphatase 88 U/L (46-116) Troponin I Quantitative 0.114 ng/mL (0.000-0.055) 0.115 ng/mL (0.000-0.055) 0.091 ng/mL (0.000-0.055) Total Protein 7.9 g/dL (6.4-8.2) Albumin 3.6 g/dL (3.4-5.0) Albumin/Globulin Ratio 0.8 (1.0-1.7) Lipase 113 U/L (73-393) Urine Collection Type Unknown Urine Color Yellow Urine Clarity Clear Urine pH 6.5 Urine Specific [place] >=1.030 Urine Protein Negative mg/dL (NEG-TRACE) Urine Glucose (UA) Negative mg/dL (NEG) Urine Ketones (Stick) Negative mg/dL (NEG) Urine Blood Negative (NEG) Urine Nitrite Negative (NEG) Urine Bilirubin Negative (NEG) Urine Urobilinogen Dipstick 1.0 mg/dL (0.2 mg/dL) Urine Leukocyte Esterase Negative (NEG) Urine RBC 1-2 /HPF (0-2) Urine WBC 1-4 /HPF (0-4) Urine Squamous Epithelial Cells Mod /LPF Urine Bacteria 0 /HPF (0-FEW) Urine Hyaline Casts Few /HPF ASSESSMENT/PLAN ASSESSMENT/PLAN 1. Constipation 2. Urinary retention 3. Mild troponin elevation; peak 0.115 4. Hypertension; better controlled 5. Hyperlipemia; statin Recommendations Add ASA Check lipids Obtain echo to assess LV systolic function If echo WNL, consider for outpatient ischemic evaluation given risk factors and KIRKLAND. JENS WEBSTER MD 10/01/18 1223: CARDIAC CONSULT ASSESSMENT/PLAN ASSESSMENT/PLAN Pt. seen and examined. Agree with above MANAGER HOME Note. Patient has chronic dyspnea which has been evaluated by PCP in the past with stress testing and per patient was wnl He has mildly elevated BP's. No active angina. No limitations to ADL's. Echo today without significant wall motion abnormalities. Unclear why troponin was checked but it is likely related to stress from his significant pain. Given his age and risk factors, cannot rule out small vessel disease as he reports normal stress which for the most part should rule out large vessel disease. He feels back to normal now after his enema. No further CV testing needed at this time. Will f/u on an outpt basis and if he has no identifiable reasons for dyspnea ( still needs lung eval), then could consider coronary CTA on an outpt basis. Thanks. FUAD GURROLA APRN Oct 01, 2018 09:02 JENS WEBSTER MD Oct 01, 2018 12:23
[2018-10-01] MEDS: ATENOLOL 25 MG TABLET. PO SCH (09:14)
[2018-10-01] MEDS: CITALOPRAM 10 MG TABLET. PO SCH (09:14)
--- NOTE | 2018-10-01 09:32 | PDOC2 ---
GI CONSULT Reason For Consult: + fecal occult HPI: HPI: 73 y/o male evaluated in ER for constipation and urinary retention which have both resolved. Admitted to cardiac floor w/ mildly elevated troponin. GI asked to see for + hemoccult. He denies GI bleeding including hematemesis, hematochezia, and melena. Typically no issues w/ constipation - usually stools daily or QOD. Was uncomfortable due to constipation/straining/lower abd discomfort beginning on Monday, no relief w/ stool softener at home. H/o GERD that is no longer bothersome since Kate fundoplication in the . No dysphagia. No n/v. No change in appetite or weight loss. No diarrhea. Thinks he had a "tear in the small intestine" on a pill camera test once. No GB, liver, or pancreas history. No NSAIDs. 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 EGD 04/2013 (Dr. 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 pylori negative gastritis w/ alicia or hematin. Was restarted on PPI (omeprazole) and advised to follow-up for EGD in 10/2013. Colonoscopy 06/19/09 (Dr. Pacheco) for hematochezia/melena and CRC screening: normal mucosa in the whole colon, small grade1 internal hemorrhoids. PMH: PMH: HTN, HLD, GERD, anxiety, DDD Kate fundoplication, bilateral hip replacements, appendectomy, lumbar surgery , bilateral cataract removal, tonsillectomy FH: Family History: CAD, DM Social History: Smoke: Quit ALCOHOL: other (daily alcohol with friends since retiring, says it makes his mad) Drugs: None ROS: GEN: Denies fevers, chills, sweats HEENT: Denies blurred vision, sore throat CV: Denies chest pain RESP: Denies shortness of air, cough GI: Per HPI : Denies hematuria, dysuria ENDO: Denies weight changes NEURO: Denies confusion, dizziness MSK: Denies weakness, joint pain/swelling SKIN: Denies jaundice, pruritus Vitals: Vitals: Vital Signs Date Time Temp Pulse Resp B/P (MAP) Pulse Ox O2 Delivery O2 Flow Rate FiO2 10/01/18 09:14 65 148/88 10/01/18 07:15 98.5 18 97 Room Air 98.5 Labs: Labs: Laboratory Tests Test 09/30/18 15:35 09/30/18 21:25 09/30/18 23:45 10/01/18 05:43 White Blood Count 11.3 x10^3/uL (4.0-11.0) 7.8 x10^3/uL (4.0-11.0) Red Blood Count 3.98 x10^6/uL (4.30-5.70) 3.50 x10^6/uL (4.30-5.70) Hemoglobin 14.1 g/dL (13.0-17.5) 12.3 g/dL (13.0-17.5) Hematocrit 41.5 % (39.0-53.0) 36.5 % (39.0-53.0) Mean Corpuscular Volume 104 fL (79-100) 105 fL (79-100) Mean Corpuscular Hemoglobin 35 pg (25-35) 35 pg (25-35) Mean Corpuscular Hemoglobin Concent 34 g/dL (31-37) 34 g/dL (31-37) Red Cell Distribution Width 12.9 % (11.5-14.5) 12.7 % (11.5-14.5) Platelet Count 223 x10^3/uL (140-400) 190 x10^3/uL (140-400) Neutrophils (%) (Auto) 73 % (31-73) 71 % (31-73) Lymphocytes (%) (Auto) 12 % (24-48) 16 % (24-48) Monocytes (%) (Auto) 11 % (0-9) 9 % (0-9) Eosinophils (%) (Auto) 3 % (0-3) 5 % (0-3) Basophils (%) (Auto) 1 % (0-3) 0 % (0-3) Neutrophils # (Auto) 8.2 x10^3uL (1.8-7.7) 5.5 x10^3uL (1.8-7.7) Lymphocytes # (Auto) 1.4 x10^3/uL (1.0-4.8) 1.2 x10^3/uL (1.0-4.8) Monocytes # (Auto) 1.3 x10^3/uL (0.0-1.1) 0.7 x10^3/uL (0.0-1.1) Eosinophils # (Auto) 0.3 x10^3/uL (0.0-0.7) 0.4 x10^3/uL (0.0-0.7) Basophils # (Auto) 0.1 x10^3/uL (0.0-0.2) 0.0 x10^3/uL (0.0-0.2) Stool Occult Blood Positive (NEG) Sodium Level 141 mmol/L (136-145) 142 mmol/L (136-145) Potassium Level 3.8 mmol/L (3.5-5.1) 4.3 mmol/L (3.5-5.1) Chloride Level 102 mmol/L (98-107) 105 mmol/L (98-107) Carbon Dioxide Level 30 mmol/L (21-32) 31 mmol/L (21-32) Anion Gap 9 (6-14) 6 (6-14) Blood Urea Nitrogen 22 mg/dL (8-26) 15 mg/dL (8-26) Creatinine 1.0 mg/dL (0.7-1.3) 0.9 mg/dL (0.7-1.3) Estimated GFR (Cockcroft-Gault) 73.2 82.7 BUN/Creatinine Ratio 22 (6-20) Glucose Level 95 mg/dL (70-99) 101 mg/dL (70-99) Calcium Level 9.1 mg/dL (8.5-10.1) 8.5 mg/dL (8.5-10.1) Total Bilirubin 0.5 mg/dL (0.2-1.0) Aspartate Amino Transf (AST/SGOT) 22 U/L (15-37) Alanine Aminotransferase (ALT/SGPT) 45 U/L (16-63) Alkaline Phosphatase 88 U/L (46-116) Troponin I Quantitative 0.114 ng/mL (0.000-0.055) 0.115 ng/mL (0.000-0.055) 0.091 ng/mL (0.000-0.055) Total Protein 7.9 g/dL (6.4-8.2) Albumin 3.6 g/dL (3.4-5.0) Albumin/Globulin Ratio 0.8 (1.0-1.7) Lipase 113 U/L (73-393) Urine Collection Type Unknown Urine Color Yellow Urine Clarity Clear Urine pH 6.5 Urine Specific [place] >=1.030 Urine Protein Negative mg/dL (NEG-TRACE) Urine Glucose (UA) Negative mg/dL (NEG) Urine Ketones (Stick) Negative mg/dL (NEG) Urine Blood Negative (NEG) Urine Nitrite Negative (NEG) Urine Bilirubin Negative (NEG) Urine Urobilinogen Dipstick 1.0 mg/dL (0.2 mg/dL) Urine Leukocyte Esterase Negative (NEG) Urine RBC 1-2 /HPF (0-2) Urine WBC 1-4 /HPF (0-4) Urine Squamous Epithelial Cells Mod /LPF Urine Bacteria 0 /HPF (0-FEW) Urine Hyaline Casts Few /HPF Allergies: Coded Allergies: No Known Drug Allergies (Unverified , 10/16/15) Medications: Current Medications Medications (Trade) Dose Ordered Sig/Xiao Route PRN Reason Start Time Stop Time Status Last Admin Dose Admin Fentanyl Citrate (Fentanyl 2ml Vial) 50 mcg 1X ONCE IV 09/30/18 15:45 09/30/18 15:50 DC 09/30/18 16:03 Ondansetron HCl (Zofran) 4 mg 1X ONCE IV 09/30/18 15:45 09/30/18 15:50 DC 09/30/18 16:01 Sodium Chloride 1,000 ml @ 1,000 mls/hr 1X ONCE IV 09/30/18 15:45 09/30/18 16:44 DC 09/30/18 16:01 Iohexol (Omnipaque 300 Mg/ml) 75 ml 1X ONCE IV 09/30/18 16:00 09/30/18 16:01 DC 09/30/18 16:00 Fentanyl Citrate (Fentanyl 2ml Vial) 50 mcg 1X ONCE IV 09/30/18 17:15 09/30/18 17:16 DC 09/30/18 17:58 Citalopram Hydrobromide (CeleXA) 10 mg DAILY PO 10/01/18 09:00 10/01/18 09:14 Atenolol (Tenormin) 25 mg DAILY PO 10/01/18 09:00 10/01/18 09:14 Imaging: Imaging: CXR IMPRESSION: No acute cardiopulmonary process. CT A/P Impression: 1. Indeterminate lesions in the kidneys bilaterally. Patient should have follow- up ultrasound kidneys as an outpatient. 2. No acute findings. PE: GEN: NAD HEENT: Atraumatic, PERRL LUNGS: CTAB HEART: RRR ABD: NABS, round, soft, non-tender EXTREMITY: No edema SKIN: No rashes, no jaundice NEURO/PSYCH: A & O 3 A/P: A/P: Constipation, urinary retention - resolved Mildly elevated troponin, macrocytic anemia w/ +fecal occult Daily alcohol use H/o GERD and Desai's esophagus - last EGD 04/2013 w/ short segment Desai's ( indefinite dysplasia on biopsy), did not follow-up for repeat EGD, currently not on PPI S/p Kate fundoplication - intact wrap on EGD in 2012 CRC screen - last in 06/2009 Hemorrhoids -- Continue per cardiology. Restart daily PPI. Use Mrralax QD/PRN. Check anemia parameters. Follow-up for outpt EGD and colonoscopy. DANIKA HERNANDEZ Oct 01, 2018 09:32
[2018-10-01 09:40] LABS: CHOLESTEROL/HDL RATIO 2.5
--- NOTE | 2018-10-01 10:32 | CARD ---
MR#: [id number] Date of Study: 10/01/2018 Ordering Physician: FUAD GURROLA, Referring Physician: PEDRITO LEWIS Tech: Madison Mcpherson RDCS APPROVED REPORT EXAM: Two-dimensional and M-mode echocardiogram with Doppler and color Doppler. Other Information Quality : Fair INDICATION Elevated Troponin 2D DIMENSIONS RVDd2.6 (2.9-3.5cm)Left Atrium(2D)4.1 (1.6-4.0cm) IVSd1.1 (0.7-1.1cm)Aortic Root(2D)3.7 (2.0-3.7cm) LVDd4.8 (3.9-5.9cm)LVOT Diameter2.0 (1.8-2.4cm) PWd1.1 (0.7-1.1cm)LVDs3.0 (2.5-4.0cm) FS (%) 36.8 %SV70.2 ml LVEF(%)60.0 (>50%) Aortic Valve AoV Peak Dashawn.185.0cm/sAoV VTI39.2cm AO Peak GR.13.7mmHgLVOT Peak Dashawn.94.4cm/s LVOT VTI 23.36cmAO Mean GR.8mmHg WES (VMAX)1.91di5UT P 1/2 Njho011gq Mitral Valve MV E Nclxdkxr17.6cm/sMV DECEL FDFM245ud MV A Kulsvsot95.8cm/sMV EDG02wy E/A Ratio0.9MVA (PHT)3.81cm2 TDI E/Lateral E'9.1E/Medial E'9.5 Pulmonary Vein S1 Frprjhxj52.4cm/sD2 Qdmogyjg40.3cm/s LEFT VENTRICLE The left ventricle is normal size. There is normal left ventricular wall thickness. The left ventricu lar systolic function is normal. The Ejection Fraction is 55-60%. There is normal LV segmental wall m otion. Transmitral Doppler flow pattern is Grade I-abnormal relaxation pattern. RIGHT VENTRICLE The right ventricle is normal size. The right ventricular systolic function is normal. ATRIA The left atrium is mildly dilated. The right atrium size is normal. The interatrial septum is intact with no evidence for an atrial septal defect or patent foramen ovale as noted on 2-D or Doppler imagi ng. AORTIC VALVE The aortic valve is calcified but opens well. Doppler and Color Flow revealed mild aortic regurgitati on. There is no significant aortic valvular stenosis. MITRAL VALVE The mitral valve is calcified but opens well. Posterior mitral annular calcification is mild. There i s no evidence of mitral valve prolapse. There is no mitral valve stenosis. Doppler and Color Flow rev ealed no mitral valve regurgitation noted. TRICUSPID VALVE The tricuspid valve is normal in structure and function. Doppler and Color Flow revealed no tricuspid valve regurgitation noted. There is no tricuspid valve stenosis. PULMONIC VALVE The pulmonic valve is not well visualized. Doppler and Color Flow revealed no pulmonic valvular regur gitation. There is no pulmonic valvular stenosis. GREAT VESSELS The aortic root is normal in size. The ascending aorta is mildly dilated at 3.7 cm. The IVC is normal in size and collapses >50% with inspiration. PERICARDIAL EFFUSION There is no evidence of significant pericardial effusion. Critical Notification Critical Value: No <Conclusion> The left ventricular systolic function is normal. The Ejection Fraction is 55-60%. There is normal LV segmental wall motion. Mild aortic regurgitation. There is no evidence of significant pericardial effusion. Signed by : Yogesh Kirby, Electronically Approved : 10/01/2018 10:31:18
--- NOTE | 2018-10-01 10:32 | EKG ---
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
[2018-10-01] MEDS ORDERED: POLYETHYLENE GLYCOL 3350 17 GM PACKET. PO PRN (11:00)
[2018-10-01 11:20] VITALS: BP 141/87
--- NOTE | 2018-10-01 11:42 | NUR ---
SS following for discharge planning. SS reviewed pt chart. Pt is from home with spouse and is currently on room air. No discharge needs noted at this time. SS will continue to follow for pending discharge needs.
--- NOTE | 2018-10-01 13:57 | PDOC ---
PROGRESS NOTES History of Present Illness History of Present Illness VTE Prophylaxis Ordered VTE Prophylaxis Devices: Yes VTE Pharmacological Prophylaxi: Yes Assessment/Plan Assessment/Plan IMPRESSION 1. URINARY RETENTION 2. FECAL IMPACTION 3. MORBID OBESITY 4. HYPERLIPIDEMIA 5. mild elevation troponin i 6. macrocytic anemia w/ +fecal occult 7. 2 GM DROP HGB OVERNIGHT possible rehydration PLAN ENEMA UNTIL CLEAR AISHA WELL STRAIGHT CATH FOR RETENTION HOME MEDS INC ACTIVITY DVT PROPHYLAXIS cardiology consult history of Desai's and heme + stool..O/P EGD/colonoscopy PLANNED consider coronary CTA on an outpt basis. cbc in am Vitals Vitals Vital Signs Date Time Temp Pulse Resp B/P (MAP) Pulse Ox O2 Delivery O2 Flow Rate FiO2 10/01/18 11:20 99.0 62 24 141/87 (105) 99 Room Air 99.0 Physical Exam General: Alert, Oriented X3, Cooperative, No acute distress Heart: Regular rate, Normal S1, Normal S2, No murmurs Lungs: Clear Abdomen: Normal bowel sounds, Soft, No tenderness Extremities: No clubbing, No cyanosis, No edema, Normal pulses Skin: No significant lesion Labs LABS CT Abdomen with contrast: Findings: Liver: Unremarkable Spleen: Unremarkable Pancreas: Unremarkable Adrenal Glands: Unremarkable Kidneys: There is a 2 cm low-density lesion arising from the upper pole of the right kidney laterally. 6 mm hypoattenuating lesion lesion the left is too small to characterize. There is no mass or lymphadenopathy. There is no free air. There is no free fluid. CT Pelvis with Contrast: Findings: The urinary bladder appears normal. There is no free fluid. There is no lymphadenopathy. The appendix is not seen. There is beam Nelson artifact due to prior bilateral total hip arthroplasty. Impression: 1. Indeterminate lesions in the kidneys bilaterally. Patient should have follow-up ultrasound kidneys as an outpatient. 2. No acute findings. Laboratory Tests Test 09/30/18 15:35 09/30/18 21:25 09/30/18 23:45 10/01/18 05:43 White Blood Count 11.3 x10^3/uL (4.0-11.0) 7.8 x10^3/uL (4.0-11.0) Red Blood Count 3.98 x10^6/uL (4.30-5.70) 3.50 x10^6/uL (4.30-5.70) Hemoglobin 14.1 g/dL (13.0-17.5) 12.3 g/dL (13.0-17.5) Hematocrit 41.5 % (39.0-53.0) 36.5 % (39.0-53.0) Mean Corpuscular Volume 104 fL (79-100) 105 fL (79-100) Mean Corpuscular Hemoglobin 35 pg (25-35) 35 pg (25-35) Mean Corpuscular Hemoglobin Concent 34 g/dL (31-37) 34 g/dL (31-37) Red Cell Distribution Width 12.9 % (11.5-14.5) 12.7 % (11.5-14.5) Platelet Count 223 x10^3/uL (140-400) 190 x10^3/uL (140-400) Neutrophils (%) (Auto) 73 % (31-73) 71 % (31-73) Lymphocytes (%) (Auto) 12 % (24-48) 16 % (24-48) Monocytes (%) (Auto) 11 % (0-9) 9 % (0-9) Eosinophils (%) (Auto) 3 % (0-3) 5 % (0-3) Basophils (%) (Auto) 1 % (0-3) 0 % (0-3) Neutrophils # (Auto) 8.2 x10^3uL (1.8-7.7) 5.5 x10^3uL (1.8-7.7) Lymphocytes # (Auto) 1.4 x10^3/uL (1.0-4.8) 1.2 x10^3/uL (1.0-4.8) Monocytes # (Auto) 1.3 x10^3/uL (0.0-1.1) 0.7 x10^3/uL (0.0-1.1) Eosinophils # (Auto) 0.3 x10^3/uL (0.0-0.7) 0.4 x10^3/uL (0.0-0.7) Basophils # (Auto) 0.1 x10^3/uL (0.0-0.2) 0.0 x10^3/uL (0.0-0.2) Stool Occult Blood Positive (NEG) Sodium Level 141 mmol/L (136-145) 142 mmol/L (136-145) Potassium Level 3.8 mmol/L (3.5-5.1) 4.3 mmol/L (3.5-5.1) Chloride Level 102 mmol/L (98-107) 105 mmol/L (98-107) Carbon Dioxide Level 30 mmol/L (21-32) 31 mmol/L (21-32) Anion Gap 9 (6-14) 6 (6-14) Blood Urea Nitrogen 22 mg/dL (8-26) 15 mg/dL (8-26) Creatinine 1.0 mg/dL (0.7-1.3) 0.9 mg/dL (0.7-1.3) Estimated GFR (Cockcroft-Gault) 73.2 82.7 BUN/Creatinine Ratio 22 (6-20) Glucose Level 95 mg/dL (70-99) 101 mg/dL (70-99) Calcium Level 9.1 mg/dL (8.5-10.1) 8.5 mg/dL (8.5-10.1) Total Bilirubin 0.5 mg/dL (0.2-1.0) Aspartate Amino Transf (AST/SGOT) 22 U/L (15-37) Alanine Aminotransferase (ALT/SGPT) 45 U/L (16-63) Alkaline Phosphatase 88 U/L (46-116) Troponin I Quantitative 0.114 ng/mL (0.000-0.055) 0.115 ng/mL (0.000-0.055) 0.091 ng/mL (0.000-0.055) Total Protein 7.9 g/dL (6.4-8.2) Albumin 3.6 g/dL (3.4-5.0) Albumin/Globulin Ratio 0.8 (1.0-1.7) Lipase 113 U/L (73-393) Urine Collection Type Unknown Urine Color Yellow Urine Clarity Clear Urine pH 6.5 Urine Specific [place] >=1.030 Urine Protein Negative mg/dL (NEG-TRACE) Urine Glucose (UA) Negative mg/dL (NEG) Urine Ketones (Stick) Negative mg/dL (NEG) Urine Blood Negative (NEG) Urine Nitrite Negative (NEG) Urine Bilirubin Negative (NEG) Urine Urobilinogen Dipstick 1.0 mg/dL (0.2 mg/dL) Urine Leukocyte Esterase Negative (NEG) Urine RBC 1-2 /HPF (0-2) Urine WBC 1-4 /HPF (0-4) Urine Squamous Epithelial Cells Mod /LPF Urine Bacteria 0 /HPF (0-FEW) Urine Hyaline Casts Few /HPF Reticulocyte Count (auto) 1.2 % (0.5-2.5) Iron Level 66 ug/dL (65-175) Total Iron Binding Capacity 256 ug/dL (250-450) Iron Saturation 26 % (15-34) Triglycerides Level 89 mg/dL (0-150) Cholesterol Level 141 mg/dL (0-200) LDL Cholesterol, Calculated 66 mg/dL (0-100) VLDL Cholesterol, Calculated 18 mg/dL (0-40) Non-HDL Cholesterol Calculated 84 mg/dL (0-129) HDL Cholesterol 57 mg/dL (40-60) Cholesterol/HDL Ratio 2.5 Vitamin B12 Level 216 pg/mL (247-911) Assessment and Plan Assessmemt and Plan Problems Medical Problems: (1) Abdominal pain Status: Acute (2) Elevated troponin Status: Acute Comment Review of Relevant I have reviewed the following items ganesh (where applicable) has been applied. Labs Laboratory Tests Test 09/30/18 15:35 09/30/18 21:25 09/30/18 23:45 10/01/18 05:43 White Blood Count 11.3 x10^3/uL (4.0-11.0) 7.8 x10^3/uL (4.0-11.0) Red Blood Count 3.98 x10^6/uL (4.30-5.70) 3.50 x10^6/uL (4.30-5.70) Hemoglobin 14.1 g/dL (13.0-17.5) 12.3 g/dL (13.0-17.5) Hematocrit 41.5 % (39.0-53.0) 36.5 % (39.0-53.0) Mean Corpuscular Volume 104 fL (79-100) 105 fL (79-100) Mean Corpuscular Hemoglobin 35 pg (25-35) 35 pg (25-35) Mean Corpuscular Hemoglobin Concent 34 g/dL (31-37) 34 g/dL (31-37) Red Cell Distribution Width 12.9 % (11.5-14.5) 12.7 % (11.5-14.5) Platelet Count 223 x10^3/uL (140-400) 190 x10^3/uL (140-400) Neutrophils (%) (Auto) 73 % (31-73) 71 % (31-73) Lymphocytes (%) (Auto) 12 % (24-48) 16 % (24-48) Monocytes (%) (Auto) 11 % (0-9) 9 % (0-9) Eosinophils (%) (Auto) 3 % (0-3) 5 % (0-3) Basophils (%) (Auto) 1 % (0-3) 0 % (0-3) Neutrophils # (Auto) 8.2 x10^3uL (1.8-7.7) 5.5 x10^3uL (1.8-7.7) Lymphocytes # (Auto) 1.4 x10^3/uL (1.0-4.8) 1.2 x10^3/uL (1.0-4.8) Monocytes # (Auto) 1.3 x10^3/uL (0.0-1.1) 0.7 x10^3/uL (0.0-1.1) Eosinophils # (Auto) 0.3 x10^3/uL (0.0-0.7) 0.4 x10^3/uL (0.0-0.7) Basophils # (Auto) 0.1 x10^3/uL (0.0-0.2) 0.0 x10^3/uL (0.0-0.2) Stool Occult Blood Positive (NEG) Sodium Level 141 mmol/L (136-145) 142 mmol/L (136-145) Potassium Level 3.8 mmol/L (3.5-5.1) 4.3 mmol/L (3.5-5.1) Chloride Level 102 mmol/L (98-107) 105 mmol/L (98-107) Carbon Dioxide Level 30 mmol/L (21-32) 31 mmol/L (21-32) Anion Gap 9 (6-14) 6 (6-14) Blood Urea Nitrogen 22 mg/dL (8-26) 15 mg/dL (8-26) Creatinine 1.0 mg/dL (0.7-1.3) 0.9 mg/dL (0.7-1.3) Estimated GFR (Cockcroft-Gault) 73.2 82.7 BUN/Creatinine Ratio 22 (6-20) Glucose Level 95 mg/dL (70-99) 101 mg/dL (70-99) Calcium Level 9.1 mg/dL (8.5-10.1) 8.5 mg/dL (8.5-10.1) Total Bilirubin 0.5 mg/dL (0.2-1.0) Aspartate Amino Transf (AST/SGOT) 22 U/L (15-37) Alanine Aminotransferase (ALT/SGPT) 45 U/L (16-63) Alkaline Phosphatase 88 U/L (46-116) Troponin I Quantitative 0.114 ng/mL (0.000-0.055) 0.115 ng/mL (0.000-0.055) 0.091 ng/mL (0.000-0.055) Total Protein 7.9 g/dL (6.4-8.2) Albumin 3.6 g/dL (3.4-5.0) Albumin/Globulin Ratio 0.8 (1.0-1.7) Lipase 113 U/L (73-393) Urine Collection Type Unknown Urine Color Yellow Urine Clarity Clear Urine pH 6.5 Urine Specific [place] >=1.030 Urine Protein Negative mg/dL (NEG-TRACE) Urine Glucose (UA) Negative mg/dL (NEG) Urine Ketones (Stick) Negative mg/dL (NEG) Urine Blood Negative (NEG) Urine Nitrite Negative (NEG) Urine Bilirubin Negative (NEG) Urine Urobilinogen Dipstick 1.0 mg/dL (0.2 mg/dL) Urine Leukocyte Esterase Negative (NEG) Urine RBC 1-2 /HPF (0-2) Urine WBC 1-4 /HPF (0-4) Urine Squamous Epithelial Cells Mod /LPF Urine Bacteria 0 /HPF (0-FEW) Urine Hyaline Casts Few /HPF Reticulocyte Count (auto) 1.2 % (0.5-2.5) Iron Level 66 ug/dL (65-175) Total Iron Binding Capacity 256 ug/dL (250-450) Iron Saturation 26 % (15-34) Triglycerides Level 89 mg/dL (0-150) Cholesterol Level 141 mg/dL (0-200) LDL Cholesterol, Calculated 66 mg/dL (0-100) VLDL Cholesterol, Calculated 18 mg/dL (0-40) Non-HDL Cholesterol Calculated 84 mg/dL (0-129) HDL Cholesterol 57 mg/dL (40-60) Cholesterol/HDL Ratio 2.5 Vitamin B12 Level 216 pg/mL (247-911) Laboratory Tests Test 09/30/18 15:35 09/30/18 21:25 09/30/18 23:45 10/01/18 05:43 White Blood Count 11.3 x10^3/uL (4.0-11.0) 7.8 x10^3/uL (4.0-11.0) Red Blood Count 3.98 x10^6/uL (4.30-5.70) 3.50 x10^6/uL (4.30-5.70) Hemoglobin 14.1 g/dL (13.0-17.5) 12.3 g/dL (13.0-17.5) Hematocrit 41.5 % (39.0-53.0) 36.5 % (39.0-53.0) Mean Corpuscular Volume 104 fL (79-100) 105 fL (79-100) Mean Corpuscular Hemoglobin 35 pg (25-35) 35 pg (25-35) Mean Corpuscular Hemoglobin Concent 34 g/dL (31-37) 34 g/dL (31-37) Red Cell Distribution Width 12.9 % (11.5-14.5) 12.7 % (11.5-14.5) Platelet Count 223 x10^3/uL (140-400) 190 x10^3/uL (140-400) Neutrophils (%) (Auto) 73 % (31-73) 71 % (31-73) Lymphocytes (%) (Auto) 12 % (24-48) 16 % (24-48) Monocytes (%) (Auto) 11 % (0-9) 9 % (0-9) Eosinophils (%) (Auto) 3 % (0-3) 5 % (0-3) Basophils (%) (Auto) 1 % (0-3) 0 % (0-3) Neutrophils # (Auto) 8.2 x10^3uL (1.8-7.7) 5.5 x10^3uL (1.8-7.7) Lymphocytes # (Auto) 1.4 x10^3/uL (1.0-4.8) 1.2 x10^3/uL (1.0-4.8) Monocytes # (Auto) 1.3 x10^3/uL (0.0-1.1) 0.7 x10^3/uL (0.0-1.1) Eosinophils # (Auto) 0.3 x10^3/uL (0.0-0.7) 0.4 x10^3/uL (0.0-0.7) Basophils # (Auto) 0.1 x10^3/uL (0.0-0.2) 0.0 x10^3/uL (0.0-0.2) Stool Occult Blood Positive (NEG) Sodium Level 141 mmol/L (136-145) 142 mmol/L (136-145) Potassium Level 3.8 mmol/L (3.5-5.1) 4.3 mmol/L (3.5-5.1) Chloride Level 102 mmol/L (98-107) 105 mmol/L (98-107) Carbon Dioxide Level 30 mmol/L (21-32) 31 mmol/L (21-32) Anion Gap 9 (6-14) 6 (6-14) Blood Urea Nitrogen 22 mg/dL (8-26) 15 mg/dL (8-26) Creatinine 1.0 mg/dL (0.7-1.3) 0.9 mg/dL (0.7-1.3) Estimated GFR (Cockcroft-Gault) 73.2 82.7 BUN/Creatinine Ratio 22 (6-20) Glucose Level 95 mg/dL (70-99) 101 mg/dL (70-99) Calcium Level 9.1 mg/dL (8.5-10.1) 8.5 mg/dL (8.5-10.1) Total Bilirubin 0.5 mg/dL (0.2-1.0) Aspartate Amino Transf (AST/SGOT) 22 U/L (15-37) Alanine Aminotransferase (ALT/SGPT) 45 U/L (16-63) Alkaline Phosphatase 88 U/L (46-116) Troponin I Quantitative 0.114 ng/mL (0.000-0.055) 0.115 ng/mL (0.000-0.055) 0.091 ng/mL (0.000-0.055) Total Protein 7.9 g/dL (6.4-8.2) Albumin 3.6 g/dL (3.4-5.0) Albumin/Globulin Ratio 0.8 (1.0-1.7) Lipase 113 U/L (73-393) Urine Collection Type Unknown Urine Color Yellow Urine Clarity Clear Urine pH 6.5 Urine Specific [place] >=1.030 Urine Protein Negative mg/dL (NEG-TRACE) Urine Glucose (UA) Negative mg/dL (NEG) Urine Ketones (Stick) Negative mg/dL (NEG) Urine Blood Negative (NEG) Urine Nitrite Negative (NEG) Urine Bilirubin Negative (NEG) Urine Urobilinogen Dipstick 1.0 mg/dL (0.2 mg/dL) Urine Leukocyte Esterase Negative (NEG) Urine RBC 1-2 /HPF (0-2) Urine WBC 1-4 /HPF (0-4) Urine Squamous Epithelial Cells Mod /LPF Urine Bacteria 0 /HPF (0-FEW) Urine Hyaline Casts Few /HPF Reticulocyte Count (auto) 1.2 % (0.5-2.5) Iron Level 66 ug/dL (65-175) Total Iron Binding Capacity 256 ug/dL (250-450) Iron Saturation 26 % (15-34) Triglycerides Level 89 mg/dL (0-150) Cholesterol Level 141 mg/dL (0-200) LDL Cholesterol, Calculated 66 mg/dL (0-100) VLDL Cholesterol, Calculated 18 mg/dL (0-40) Non-HDL Cholesterol Calculated 84 mg/dL (0-129) HDL Cholesterol 57 mg/dL (40-60) Cholesterol/HDL Ratio 2.5 Vitamin B12 Level 216 pg/mL (247-911) Medications Current Medications Fentanyl Citrate (Fentanyl 2ml Vial) 50 mcg 1X ONCE IV Last administered on at 16:03; Start 09/30/18 at 15:45; Stop 09/30/18 at 15:50; Status DC Ondansetron HCl (Zofran) 4 mg 1X ONCE IV Last administered on 09/30/18at 16:01 ; Start 09/30/18 at 15:45; Stop 09/30/18 at 15:50; Status DC Sodium Chloride 1,000 ml @ 1,000 mls/hr 1X ONCE IV Last administered on at 16:01; Start 09/30/18 at 15:45; Stop 09/30/18 at 16:44; Status DC Iohexol (Omnipaque 300 Mg/ml) 75 ml 1X ONCE IV Last administered on 09/30/18at 16:00; Start 09/30/18 at 16:00; Stop 09/30/18 at 16:01; Status DC Fentanyl Citrate (Fentanyl 2ml Vial) 50 mcg 1X ONCE IV Last administered on at 17:58; Start 09/30/18 at 17:15; Stop 09/30/18 at 17:16; Status DC Ondansetron HCl (Zofran) 4 mg PRN Q8HRS PRN IV NAUSEA/VOMITING; Start 09/30/18 at 18:30; Stop 10/01/18 at 18:29 Fentanyl Citrate (Fentanyl 2ml Vial) 50 mcg PRN Q1HR PRN IV PAIN; Start at 18:30; Stop 10/01/18 at 18:29 Acetaminophen (Tylenol) 650 mg PRN Q4HRS PRN PO FEVER; Start 09/30/18 at 18:30 ; Stop 10/01/18 at 18:29 Citalopram Hydrobromide (CeleXA) 10 mg DAILY PO Last administered on 10/01/18at 09:14; Start 10/01/18 at 09:00 Atenolol (Tenormin) 25 mg DAILY PO Last administered on 10/01/18at 09:14; Start 10/01/18 at 09:00 Atorvastatin Calcium (Lipitor) 5 mg HS PO ; Start 10/01/18 at 21:00 Enoxaparin Sodium (Lovenox 40mg Syringe) 40 mg Q24H SQ ; Start 09/30/18 at 21:30 Pantoprazole Sodium (Protonix) 40 mg DAILYAC PO ; Start 10/01/18 at 11:30 Polyethylene Glycol (miraLAX PACKET) 17 gm DAILY PO ; Start 10/01/18 at 11:30 Polyethylene Glycol (miraLAX PACKET) 17 gm PRN DAILY PRN PO CONSTIPATION; Start 10/01/18 at 11:00 Aspirin (Ecotrin) 81 mg DAILYWBKFT PO ; Start 10/02/18 at 08:00 Active Scripts Active Reported Citalopram Hbr (Citalopram Hydrobromide) 20 Mg Tablet 20 Mg PO DAILY Levothyroxine Sodium 50 Mcg Tablet 50 Mcg PO DAILY Atenolol 50 Mg Tablet 50 Mg PO DAILY Lovastatin 40 Mg Tablet 40 Mg PO DAILY Citalopram Hbr (Citalopram Hydrobromide) 10 Mg Tablet 1 Tab PO DAILY Atenolol 25 Mg Tablet 1 Tab PO DAILY Lovastatin 20 Mg Tablet 1 Tab PO DAILY Vitals/I & O Vital Sign - Last 24 Hours 09/30/18 09/30/18 09/30/18 09/30/18 15:08 15:59 16:03 16:28 Temp 98.8 98.8 Pulse 77 72 75 Resp 16 16 16 16 B/P (MAP) 145/85 (105) 149/106 (120) 160/77 (104) Pulse Ox 95 98 98 O2 Delivery Room Air Room Air Room Air Room Air 09/30/18 09/30/18 09/30/18 09/30/18 16:58 17:28 17:58 17:58 Pulse 69 66 66 Resp 16 16 14 B/P (MAP) 168/81 (110) 162/79 (106) 142/78 (99) Pulse Ox 96 100 98 O2 Delivery Room Air Room Air Room Air Room Air 09/30/18 09/30/18 09/30/18 09/30/18 18:28 19:39 19:50 23:06 Temp 98.2 98.2 98.2 98.2 Pulse 70 67 64 68 Resp 16 16 18 20 B/P (MAP) 146/70 (95) 124/69 (87) 141/81 (101) 138/79 (98) Pulse Ox 96 98 96 98 O2 Delivery Room Air Room Air Room Air Room Air 10/01/18 10/01/18 10/01/18 10/01/18 02:50 07:15 09:14 11:20 Temp 98.1 98.5 99.0 98.1 98.5 99.0 Pulse 62 65 65 62 Resp 18 18 24 B/P (MAP) 136/80 (98) 148/88 (108) 148/88 141/87 (105) Pulse Ox 95 97 99 O2 Delivery Room Air Room Air Room Air Intake and Output 09/30/18 09/30/18 10/01/18 14:59 22:59 06:59 Intake Total 1000 ml 200 ml Output Total 200 ml Balance 1000 ml 0 ml PEDRITO LEWIS MD Oct 01, 2018 13:57
[2018-10-01] MEDS: PANTOPRAZOLE 40 MG TABLET.DR. PO SCH (14:24)
[2018-10-01] MEDS: POLYETHYLENE GLYCOL 3350 17 GM PACKET. PO SCH (14:26)
[2018-10-01 15:30] VITALS: BP 138/64
[2018-10-01] MEDS: CYANOCOBALAMIN (VITAMIN B-12) 1,000 MCG/ML VIAL IM SCH (16:37)
[2018-10-01 19:35] VITALS: BP 123/65
[2018-10-01] MEDS ORDERED: diphenhydrAMINE HCL 25 MG CAPSULE PO PRN (20:30)
[2018-10-01] MEDS ORDERED: ACETAMINOPHEN 325 MG TABLET. PO PRN (20:30)
[2018-10-01] MEDS ORDERED: ATORVASTATIN CALCIUM 10 MG TABLET. PO SCH (21:00)
[2018-10-01] MEDS: ENOXAPARIN 40 MG/0.4 ML SYRINGE. SQ SCH (21:01)
[2018-10-01 22:50] VITALS: BP 138/69
[2018-10-02 03:15] VITALS: BP 146/84
[2018-10-02 06:50] LABS: CREATININE 0.8 mg/dL (0.7-1.3); GFR 94.8; POTASSIUM 4.9 mmol/L (3.5-5.1)
[2018-10-02 06:58] LABS: BASO % 0 % (0-3); EOS # 0.4 x10^3/uL (0.0-0.7); EOS % 5 % (0-3); HEMATOCRIT 37.4 % (39.0-53.0); HEMOGLOBIN 12.7 g/dL (13.0-17.5); LYMPH # 1.2 x10^3/uL (1.0-4.8); LYMPH % 16 % (24-48); MEAN CORPUSCULAR HEMOGLOBIN 36 pg (25-35); MEAN CORPUSCULAR HGB CONC 34 g/dL (31-37); MEAN CORPUSCULAR VOLUME 105 fL (79-100); MONO # 0.7 x10^3/uL (0.0-1.1); MONO % 9 % (0-9); NEUT # 5.2 x10^3uL (1.8-7.7); NEUT % 69 % (31-73); PLATELET COUNT 186 x10^3/uL (140-400); RED BLOOD COUNT 3.56 x10^6/uL (4.30-5.70); RED CELL DISTRIBUTION WIDTH 12.8 % (11.5-14.5); WHITE BLOOD COUNT 7.6 x10^3/uL (4.0-11.0)
[2018-10-02 07:00] VITALS: BP 173/75
[2018-10-02] MEDS ORDERED: ASPIRIN ENTERIC COATED 81 MG TABLET.DR. PO SCH (08:00)
[2018-10-02] MEDS: CITALOPRAM 10 MG TABLET. PO SCH (08:56)
[2018-10-02] MEDS: ATENOLOL 25 MG TABLET. PO SCH (08:56)
[2018-10-02] MEDS: PANTOPRAZOLE 40 MG TABLET.DR. PO SCH (08:56)
[2018-10-02] MEDS: POLYETHYLENE GLYCOL 3350 17 GM PACKET. PO SCH (08:56)
[2018-10-02] MEDS: CYANOCOBALAMIN (VITAMIN B-12) 1,000 MCG/ML VIAL IM SCH (09:14)
[2018-10-02 11:00] VITALS: BP 141/81
--- NOTE | 2018-10-02 11:01 | PDOC ---
PROGRESS NOTES History of Present Illness History of Present Illness VTE Prophylaxis Ordered VTE Prophylaxis Devices: Yes VTE Pharmacological Prophylaxi: Yes Assessment/Plan Assessment/Plan IMPRESSION 1. URINARY RETENTION 2. FECAL IMPACTION 3. MORBID OBESITY 4. HYPERLIPIDEMIA 5. mild elevation troponin i 6. macrocytic anemia w/ +fecal occult 7. 2 GM DROP HGB OVERNIGHT possible rehydration PLAN ENEMA UNTIL CLEAR AISHA WELL STRAIGHT CATH FOR RETENTION HOME MEDS INC ACTIVITY DVT PROPHYLAXIS cardiology consult history of Desai's and heme + stool..O/P EGD/colonoscopy PLANNED consider coronary CTA on an outpt basis. cbc OK 10/02 Outpt EGD and colonoscopy as previously discussed. WITH GI D/C PLANNING 35 MIN Vitals Vitals Vital Signs Date Time Temp Pulse Resp B/P (MAP) Pulse Ox O2 Delivery O2 Flow Rate FiO2 10/02/18 08:56 60 173/75 10/02/18 07:00 98.3 20 99 Room Air 98.3 Physical Exam General: Alert, Oriented X3, Cooperative, No acute distress Heart: Regular rate, Normal S1, Normal S2, No murmurs Lungs: Clear Abdomen: Normal bowel sounds, Soft, No tenderness Extremities: No clubbing, No cyanosis, No edema, Normal pulses Skin: No significant lesion Labs LABS Laboratory Tests Test 10/02/18 05:00 White Blood Count 7.6 x10^3/uL (4.0-11.0) Red Blood Count 3.56 x10^6/uL (4.30-5.70) Hemoglobin 12.7 g/dL (13.0-17.5) Hematocrit 37.4 % (39.0-53.0) Mean Corpuscular Volume 105 fL (79-100) Mean Corpuscular Hemoglobin 36 pg (25-35) Mean Corpuscular Hemoglobin Concent 34 g/dL (31-37) Red Cell Distribution Width 12.8 % (11.5-14.5) Platelet Count 186 x10^3/uL (140-400) Neutrophils (%) (Auto) 69 % (31-73) Lymphocytes (%) (Auto) 16 % (24-48) Monocytes (%) (Auto) 9 % (0-9) Eosinophils (%) (Auto) 5 % (0-3) Basophils (%) (Auto) 0 % (0-3) Neutrophils # (Auto) 5.2 x10^3uL (1.8-7.7) Lymphocytes # (Auto) 1.2 x10^3/uL (1.0-4.8) Monocytes # (Auto) 0.7 x10^3/uL (0.0-1.1) Eosinophils # (Auto) 0.4 x10^3/uL (0.0-0.7) Basophils # (Auto) 0.0 x10^3/uL (0.0-0.2) Sodium Level 143 mmol/L (136-145) Potassium Level 4.9 mmol/L (3.5-5.1) Chloride Level 104 mmol/L (98-107) Carbon Dioxide Level 34 mmol/L (21-32) Anion Gap 5 (6-14) Blood Urea Nitrogen 14 mg/dL (8-26) Creatinine 0.8 mg/dL (0.7-1.3) Estimated GFR (Cockcroft-Gault) 94.8 Glucose Level 105 mg/dL (70-99) Calcium Level 9.0 mg/dL (8.5-10.1) Assessment and Plan Assessmemt and Plan Problems Medical Problems: (1) Abdominal pain Status: Acute (2) Elevated troponin Status: Acute Comment Review of Relevant I have reviewed the following items ganesh (where applicable) has been applied. Labs Laboratory Tests Test 09/30/18 15:35 09/30/18 21:25 09/30/18 23:45 10/01/18 05:43 White Blood Count 11.3 x10^3/uL (4.0-11.0) 7.8 x10^3/uL (4.0-11.0) Red Blood Count 3.98 x10^6/uL (4.30-5.70) 3.50 x10^6/uL (4.30-5.70) Hemoglobin 14.1 g/dL (13.0-17.5) 12.3 g/dL (13.0-17.5) Hematocrit 41.5 % (39.0-53.0) 36.5 % (39.0-53.0) Mean Corpuscular Volume 104 fL (79-100) 105 fL (79-100) Mean Corpuscular Hemoglobin 35 pg (25-35) 35 pg (25-35) Mean Corpuscular Hemoglobin Concent 34 g/dL (31-37) 34 g/dL (31-37) Red Cell Distribution Width 12.9 % (11.5-14.5) 12.7 % (11.5-14.5) Platelet Count 223 x10^3/uL (140-400) 190 x10^3/uL (140-400) Neutrophils (%) (Auto) 73 % (31-73) 71 % (31-73) Lymphocytes (%) (Auto) 12 % (24-48) 16 % (24-48) Monocytes (%) (Auto) 11 % (0-9) 9 % (0-9) Eosinophils (%) (Auto) 3 % (0-3) 5 % (0-3) Basophils (%) (Auto) 1 % (0-3) 0 % (0-3) Neutrophils # (Auto) 8.2 x10^3uL (1.8-7.7) 5.5 x10^3uL (1.8-7.7) Lymphocytes # (Auto) 1.4 x10^3/uL (1.0-4.8) 1.2 x10^3/uL (1.0-4.8) Monocytes # (Auto) 1.3 x10^3/uL (0.0-1.1) 0.7 x10^3/uL (0.0-1.1) Eosinophils # (Auto) 0.3 x10^3/uL (0.0-0.7) 0.4 x10^3/uL (0.0-0.7) Basophils # (Auto) 0.1 x10^3/uL (0.0-0.2) 0.0 x10^3/uL (0.0-0.2) Stool Occult Blood Positive (NEG) Sodium Level 141 mmol/L (136-145) 142 mmol/L (136-145) Potassium Level 3.8 mmol/L (3.5-5.1) 4.3 mmol/L (3.5-5.1) Chloride Level 102 mmol/L (98-107) 105 mmol/L (98-107) Carbon Dioxide Level 30 mmol/L (21-32) 31 mmol/L (21-32) Anion Gap 9 (6-14) 6 (6-14) Blood Urea Nitrogen 22 mg/dL (8-26) 15 mg/dL (8-26) Creatinine 1.0 mg/dL (0.7-1.3) 0.9 mg/dL (0.7-1.3) Estimated GFR (Cockcroft-Gault) 73.2 82.7 BUN/Creatinine Ratio 22 (6-20) Glucose Level 95 mg/dL (70-99) 101 mg/dL (70-99) Calcium Level 9.1 mg/dL (8.5-10.1) 8.5 mg/dL (8.5-10.1) Total Bilirubin 0.5 mg/dL (0.2-1.0) Aspartate Amino Transf (AST/SGOT) 22 U/L (15-37) Alanine Aminotransferase (ALT/SGPT) 45 U/L (16-63) Alkaline Phosphatase 88 U/L (46-116) Troponin I Quantitative 0.114 ng/mL (0.000-0.055) 0.115 ng/mL (0.000-0.055) 0.091 ng/mL (0.000-0.055) Total Protein 7.9 g/dL (6.4-8.2) Albumin 3.6 g/dL (3.4-5.0) Albumin/Globulin Ratio 0.8 (1.0-1.7) Lipase 113 U/L (73-393) Urine Collection Type Unknown Urine Color Yellow Urine Clarity Clear Urine pH 6.5 Urine Specific [place] >=1.030 Urine Protein Negative mg/dL (NEG-TRACE) Urine Glucose (UA) Negative mg/dL (NEG) Urine Ketones (Stick) Negative mg/dL (NEG) Urine Blood Negative (NEG) Urine Nitrite Negative (NEG) Urine Bilirubin Negative (NEG) Urine Urobilinogen Dipstick 1.0 mg/dL (0.2 mg/dL) Urine Leukocyte Esterase Negative (NEG) Urine RBC 1-2 /HPF (0-2) Urine WBC 1-4 /HPF (0-4) Urine Squamous Epithelial Cells Mod /LPF Urine Bacteria 0 /HPF (0-FEW) Urine Hyaline Casts Few /HPF Reticulocyte Count (auto) 1.2 % (0.5-2.5) Iron Level 66 ug/dL (65-175) Total Iron Binding Capacity 256 ug/dL (250-450) Iron Saturation 26 % (15-34) Triglycerides Level 89 mg/dL (0-150) Cholesterol Level 141 mg/dL (0-200) LDL Cholesterol, Calculated 66 mg/dL (0-100) VLDL Cholesterol, Calculated 18 mg/dL (0-40) Non-HDL Cholesterol Calculated 84 mg/dL (0-129) HDL Cholesterol 57 mg/dL (40-60) Cholesterol/HDL Ratio 2.5 Vitamin B12 Level 216 pg/mL (247-911) Test 10/02/18 05:00 White Blood Count 7.6 x10^3/uL (4.0-11.0) Red Blood Count 3.56 x10^6/uL (4.30-5.70) Hemoglobin 12.7 g/dL (13.0-17.5) Hematocrit 37.4 % (39.0-53.0) Mean Corpuscular Volume 105 fL (79-100) Mean Corpuscular Hemoglobin 36 pg (25-35) Mean Corpuscular Hemoglobin Concent 34 g/dL (31-37) Red Cell Distribution Width 12.8 % (11.5-14.5) Platelet Count 186 x10^3/uL (140-400) Neutrophils (%) (Auto) 69 % (31-73) Lymphocytes (%) (Auto) 16 % (24-48) Monocytes (%) (Auto) 9 % (0-9) Eosinophils (%) (Auto) 5 % (0-3) Basophils (%) (Auto) 0 % (0-3) Neutrophils # (Auto) 5.2 x10^3uL (1.8-7.7) Lymphocytes # (Auto) 1.2 x10^3/uL (1.0-4.8) Monocytes # (Auto) 0.7 x10^3/uL (0.0-1.1) Eosinophils # (Auto) 0.4 x10^3/uL (0.0-0.7) Basophils # (Auto) 0.0 x10^3/uL (0.0-0.2) Sodium Level 143 mmol/L (136-145) Potassium Level 4.9 mmol/L (3.5-5.1) Chloride Level 104 mmol/L (98-107) Carbon Dioxide Level 34 mmol/L (21-32) Anion Gap 5 (6-14) Blood Urea Nitrogen 14 mg/dL (8-26) Creatinine 0.8 mg/dL (0.7-1.3) Estimated GFR (Cockcroft-Gault) 94.8 Glucose Level 105 mg/dL (70-99) Calcium Level 9.0 mg/dL (8.5-10.1) Laboratory Tests Test 10/02/18 05:00 White Blood Count 7.6 x10^3/uL (4.0-11.0) Red Blood Count 3.56 x10^6/uL (4.30-5.70) Hemoglobin 12.7 g/dL (13.0-17.5) Hematocrit 37.4 % (39.0-53.0) Mean Corpuscular Volume 105 fL (79-100) Mean Corpuscular Hemoglobin 36 pg (25-35) Mean Corpuscular Hemoglobin Concent 34 g/dL (31-37) Red Cell Distribution Width 12.8 % (11.5-14.5) Platelet Count 186 x10^3/uL (140-400) Neutrophils (%) (Auto) 69 % (31-73) Lymphocytes (%) (Auto) 16 % (24-48) Monocytes (%) (Auto) 9 % (0-9) Eosinophils (%) (Auto) 5 % (0-3) Basophils (%) (Auto) 0 % (0-3) Neutrophils # (Auto) 5.2 x10^3uL (1.8-7.7) Lymphocytes # (Auto) 1.2 x10^3/uL (1.0-4.8) Monocytes # (Auto) 0.7 x10^3/uL (0.0-1.1) Eosinophils # (Auto) 0.4 x10^3/uL (0.0-0.7) Basophils # (Auto) 0.0 x10^3/uL (0.0-0.2) Sodium Level 143 mmol/L (136-145) Potassium Level 4.9 mmol/L (3.5-5.1) Chloride Level 104 mmol/L (98-107) Carbon Dioxide Level 34 mmol/L (21-32) Anion Gap 5 (6-14) Blood Urea Nitrogen 14 mg/dL (8-26) Creatinine 0.8 mg/dL (0.7-1.3) Estimated GFR (Cockcroft-Gault) 94.8 Glucose Level 105 mg/dL (70-99) Calcium Level 9.0 mg/dL (8.5-10.1) Medications Current Medications Fentanyl Citrate (Fentanyl 2ml Vial) 50 mcg 1X ONCE IV Last administered on 16:03; Start 09/30/18 at 15:45; Stop 09/30/18 at 15:50; Status DC Ondansetron HCl (Zofran) 4 mg 1X ONCE IV Last administered on 09/30/18 16:01 ; Start 09/30/18 at 15:45; Stop 09/30/18 at 15:50; Status DC Sodium Chloride 1,000 ml @ 1,000 mls/hr 1X ONCE IV Last administered on 16:01; Start 09/30/18 at 15:45; Stop 09/30/18 at 16:44; Status DC Iohexol (Omnipaque 300 Mg/ml) 75 ml 1X ONCE IV Last administered on 09/30/18at 16:00; Start 09/30/18 at 16:00; Stop 09/30/18 at 16:01; Status DC Fentanyl Citrate (Fentanyl 2ml Vial) 50 mcg 1X ONCE IV Last administered on at 17:58; Start 09/30/18 at 17:15; Stop 09/30/18 at 17:16; Status DC Ondansetron HCl (Zofran) 4 mg PRN Q8HRS PRN IV NAUSEA/VOMITING; Start 09/30/18 at 18:30; Stop 10/01/18 at 18:29; Status DC Fentanyl Citrate (Fentanyl 2ml Vial) 50 mcg PRN Q1HR PRN IV PAIN; Start at 18:30; Stop 10/01/18 at 18:29; Status DC Acetaminophen (Tylenol) 650 mg PRN Q4HRS PRN PO FEVER; Start 09/30/18 at 18:30 ; Stop 10/01/18 at 18:29; Status DC Citalopram Hydrobromide (CeleXA) 10 mg DAILY PO Last administered on 10/02/18 08:56; Start 10/01/18 at 09:00 Atenolol (Tenormin) 25 mg DAILY PO Last administered on 10/02/18 08:56; Start 10/01/18 at 09:00 Atorvastatin Calcium (Lipitor) 5 mg HS PO Last administered on 10/01/18 21:00 ; Start 10/01/18 at 21:00 Enoxaparin Sodium (Lovenox 40mg Syringe) 40 mg Q24H SQ Last administered on 21:01; Start 09/30/18 at 21:30 Pantoprazole Sodium (Protonix) 40 mg DAILYAC PO Last administered on 10/02/18 08:56; Start 10/01/18 at 11:30 Polyethylene Glycol (miraLAX PACKET) 17 gm DAILY PO Last administered on 08:56; Start 10/01/18 at 11:30 Polyethylene Glycol (miraLAX PACKET) 17 gm PRN DAILY PRN PO CONSTIPATION; Start 10/01/18 at 11:00 Aspirin (Ecotrin) 81 mg DAILYWBKFT PO Last administered on 10/02/18 08:56; Start 10/02/18 at 08:00 Cyanocobalamin (Vitamin B-12) 1,000 mcg DAILY IM Last administered on 09:14; Start 10/01/18 at 15:00 Acetaminophen (Tylenol) 650 mg PRN Q6HRS PRN PO fever Last administered on 10/01 21:00; Start 10/01/18 at 20:30 Diphenhydramine HCl (Benadryl) 25 mg PRN QHS PRN PO INSOMNIA Last administered on 10/01/18 21:00; Start 10/01/18 at 20:30 Active Scripts Active Reported Citalopram Hbr (Citalopram Hydrobromide) 20 Mg Tablet 20 Mg PO DAILY Levothyroxine Sodium 50 Mcg Tablet 50 Mcg PO DAILY Atenolol 50 Mg Tablet 50 Mg PO DAILY Lovastatin 40 Mg Tablet 40 Mg PO DAILY Citalopram Hbr (Citalopram Hydrobromide) 10 Mg Tablet 1 Tab PO DAILY Atenolol 25 Mg Tablet 1 Tab PO DAILY Lovastatin 20 Mg Tablet 1 Tab PO DAILY Vitals/I & O Vital Sign - Last 24 Hours 10/01/18 10/01/18 10/01/18 10/01/18 11:20 15:30 19:35 22:50 Temp 99.0 98.3 99.3 98.8 99.0 98.3 99.3 98.8 Pulse 62 69 77 65 Resp 24 18 20 22 B/P (MAP) 141/87 (105) 138/64 (88) 123/65 (84) 138/69 (92) Pulse Ox 99 96 96 95 O2 Delivery Room Air Room Air Room Air Room Air 10/02/18 10/02/18 10/02/18 03:15 07:00 08:56 Temp 98.2 98.3 98.2 98.3 Pulse 55 60 60 Resp 20 20 B/P (MAP) 146/84 (104) 173/75 (107) 173/75 Pulse Ox 97 99 O2 Delivery Room Air Room Air Intake and Output 10/01/18 10/01/18 10/02/18 15:00 23:00 07:00 Intake Total 200 ml 200 ml 500 ml Output Total 400 ml 400 ml Balance -200 ml -200 ml 500 ml PEDRITO LEWIS MD Oct 02, 2018 11:01
--- NOTE | 2018-10-02 13:54 | PDOC ---
Subjective: Subjective: No complaints. Objective: Objective: Per RN - remains inpt to monitor Hgb. Vital Signs: Vital Signs Date Time Temp Pulse Resp B/P (MAP) Pulse Ox O2 Delivery O2 Flow Rate FiO2 10/02/18 11:00 98.1 64 20 141/81 (101) 92 Room Air 98.1 Labs: Laboratory Tests Test 10/02/18 05:00 White Blood Count 7.6 x10^3/uL Red Blood Count 3.56 x10^6/uL Hemoglobin 12.7 g/dL Hematocrit 37.4 % Mean Corpuscular Volume 105 fL Mean Corpuscular Hemoglobin 36 pg Mean Corpuscular Hemoglobin Concent 34 g/dL Red Cell Distribution Width 12.8 % Platelet Count 186 x10^3/uL Neutrophils (%) (Auto) 69 % Lymphocytes (%) (Auto) 16 % Monocytes (%) (Auto) 9 % Eosinophils (%) (Auto) 5 % Basophils (%) (Auto) 0 % Neutrophils # (Auto) 5.2 x10^3uL Lymphocytes # (Auto) 1.2 x10^3/uL Monocytes # (Auto) 0.7 x10^3/uL Eosinophils # (Auto) 0.4 x10^3/uL Basophils # (Auto) 0.0 x10^3/uL Sodium Level 143 mmol/L Potassium Level 4.9 mmol/L Chloride Level 104 mmol/L Carbon Dioxide Level 34 mmol/L Anion Gap 5 Blood Urea Nitrogen 14 mg/dL Creatinine 0.8 mg/dL Estimated GFR (Cockcroft-Gault) 94.8 Glucose Level 105 mg/dL Calcium Level 9.0 mg/dL Imaging: Echo <Conclusion> The left ventricular systolic function is normal. The Ejection Fraction is 55-60%. There is normal LV segmental wall motion. Mild aortic regurgitation. There is no evidence of significant pericardial effusion. PE: GEN: NAD, was asleep LUNGS: CTAB HEART: RRR ABD: NABS, S/ND/NT NEURO/PSYCH: A & O 3 A/P: Constipation - resolved Pernicious anemia, +fecal occult - denies bleeding, last EGD 2011, last colonoscopy 2008 H/o GERD/Desai's esophagus Hemorrhoids -- DC per primary on B12, PPI, and Miralax. Outpt EGD and colonoscopy as previously discussed. DANIKA HERNANDEZ Oct 02, 2018 13:54
[2018-10-02] MEDS ORDERED: Pantoprazole PO (15:32)
[2018-10-02] MEDS ORDERED: POLY17PO28 PO (15:32)
[2018-10-02] MEDS ORDERED: ASPI-612 PO (15:32)
--- NOTE | 2018-10-02 15:33 | DISCH ---
DISCHARGE INSTRUCTIONS Condition on Discharge Condition on Discharge: Stable Activity After Discharge Activity Instructions for Disc: Resume previous activity Lifting Instructions after Dis: No heavy lifting, No pulling or pushing Exercise Instruction after Dis: Walk 10 min, 3 x per day Driving Instructions after Dis: Do not drive today Diet after Discharge Diet after Discharge: Low Sodium 2 gm Checks after Discharge Checks after discharge: Check blood press - daily Contacting the DR. after DC Call your doctor for: If your condition worsens PEDRITO LEWIS MD Oct 02, 2018 15:33
--- NOTE | 2018-10-02 15:35 | PDOC3 ---
Discharge Summary Date of Admission: Sep 30, 2018 Date of Discharge: Oct 02, 2018 Follow-Up: 3-5 days Admitting Diagnosis comment: DISCHARGE DX Assessment/Plan IMPRESSION 1. URINARY RETENTION 2. FECAL IMPACTION 3. MORBID OBESITY 4. HYPERLIPIDEMIA 5. mild elevation troponin i 6. macrocytic anemia w/ +fecal occult 7. 2 GM DROP HGB // possible rehydration PLAN ENEMA UNTIL CLEAR AISHA WELL STRAIGHT CATH FOR RETENTION [facility] INC ACTIVITY DVT PROPHYLAXIS cardiology consult history of Desai's and heme + stool..O/P EGD/colonoscopy PLANNED consider coronary CTA on an outpt basis. cbc OK 10/02 Outpt EGD and colonoscopy as previously discussed. WITH GI D/C PLANNING 35 MIN Vitals Vitals Vital Signs Date Time Temp Pulse Resp B/P (MAP) Pulse Ox O2 Delivery O2 Flow Rate FiO2 10/02/18 08:56 60 173/75 10/02/18 07:00 98.3 20 99 Room Air 98.3 Physical Exam General: Alert, Oriented X3, Cooperative, No acute distress Heart: Regular rate, Normal S1, Normal S2, No murmurs Lungs: Clear Abdomen: Normal bowel sounds, Soft, No tenderness Extremities: No clubbing, No cyanosis, No edema, Normal pulses Skin: No significant lesion FINAL DIAGNOSIS Problems Medical Problems: (1) Abdominal pain Status: Acute (2) Elevated troponin Status: Acute Brief Hospital Course Mr. Taylor is a 73 old [sex] who presented with [ RECTAL BLEEDING] CONDITION AT DISCHARGE: Improved Discharge Medications Current Medications Fentanyl Citrate (Fentanyl 2ml Vial) 50 mcg 1X ONCE IV Last administered on 16:03; Start 09/30/18 at 15:45; Stop 09/30/18 at 15:50; Status DC Ondansetron HCl (Zofran) 4 mg 1X ONCE IV Last administered on 09/30/18 16:01 ; Start 09/30/18 at 15:45; Stop 09/30/18 at 15:50; Status DC Sodium Chloride 1,000 ml @ 1,000 mls/hr 1X ONCE IV Last administered on 16:01; Start 09/30/18 at 15:45; Stop 09/30/18 at 16:44; Status DC Iohexol (Omnipaque 300 Mg/ml) 75 ml 1X ONCE IV Last administered on 09/30/18 16:00; Start 09/30/18 at 16:00; Stop 09/30/18 at 16:01; Status DC Fentanyl Citrate (Fentanyl 2ml Vial) 50 mcg 1X ONCE IV Last administered on 17:58; Start 09/30/18 at 17:15; Stop 09/30/18 at 17:16; Status DC Ondansetron HCl (Zofran) 4 mg PRN Q8HRS PRN IV NAUSEA/VOMITING; Start 09/30/18 at 18:30; Stop 10/01/18 at 18:29; Status DC Fentanyl Citrate (Fentanyl 2ml Vial) 50 mcg PRN Q1HR PRN IV PAIN; Start at 18:30; Stop 10/01/18 at 18:29; Status DC Acetaminophen (Tylenol) 650 mg PRN Q4HRS PRN PO FEVER; Start 09/30/18 at 18:30 ; Stop 10/01/18 at 18:29; Status DC Citalopram Hydrobromide (CeleXA) 10 mg DAILY PO Last administered on 10/02/18 08:56; Start 10/01/18 at 09:00 Atenolol (Tenormin) 25 mg DAILY PO Last administered on 10/02/18 08:56; Start 10/01/18 at 09:00 Atorvastatin Calcium (Lipitor) 5 mg HS PO Last administered on 10/01/18 21:00 ; Start 10/01/18 at 21:00 Enoxaparin Sodium (Lovenox 40mg Syringe) 40 mg Q24H SQ Last administered on 21:01; Start 09/30/18 at 21:30 Pantoprazole Sodium (Protonix) 40 mg DAILYAC PO Last administered on 10/02/18 08:56; Start 10/01/18 at 11:30 Polyethylene Glycol (miraLAX PACKET) 17 gm DAILY PO Last administered on 08:56; Start 10/01/18 at 11:30 Polyethylene Glycol (miraLAX PACKET) 17 gm PRN DAILY PRN PO CONSTIPATION; Start 10/01/18 at 11:00 Aspirin (Ecotrin) 81 mg DAILYWBKFT PO Last administered on 3/26/19at 08:56; Start 10/02/18 at 08:00 Cyanocobalamin (Vitamin B-12) 1,000 mcg DAILY IM Last administered on at 09:14; Start 10/01/18 at 15:00 Acetaminophen (Tylenol) 650 mg PRN Q6HRS PRN PO fever Last administered on 10/01at 21:00; Start 10/01/18 at 20:30 Diphenhydramine HCl (Benadryl) 25 mg PRN QHS PRN PO INSOMNIA Last administered on 10/01/18at 21:00; Start 10/01/18 at 20:30 Active Scripts Active Reported Citalopram Hbr (Citalopram Hydrobromide) 20 Mg Tablet 20 Mg PO DAILY Levothyroxine Sodium 50 Mcg Tablet 50 Mcg PO DAILY Atenolol 50 Mg Tablet 50 Mg PO DAILY Lovastatin 40 Mg Tablet 40 Mg PO DAILY Citalopram Hbr (Citalopram Hydrobromide) 10 Mg Tablet 1 Tab PO DAILY Atenolol 25 Mg Tablet 1 Tab PO DAILY Lovastatin 20 Mg Tablet 1 Tab PO DAILY Vital Signs Vital Signs Date Time Temp Pulse Resp B/P (MAP) Pulse Ox O2 Delivery O2 Flow Rate FiO2 10/02/18 11:00 98.1 64 20 141/81 (101) 92 Room Air 98.1 Labs Laboratory Tests Test 09/30/18 15:35 09/30/18 21:25 09/30/18 23:45 10/01/18 05:43 White Blood Count 11.3 x10^3/uL (4.0-11.0) 7.8 x10^3/uL (4.0-11.0) Red Blood Count 3.98 x10^6/uL (4.30-5.70) 3.50 x10^6/uL (4.30-5.70) Hemoglobin 14.1 g/dL (13.0-17.5) 12.3 g/dL (13.0-17.5) Hematocrit 41.5 % (39.0-53.0) 36.5 % (39.0-53.0) Mean Corpuscular Volume 104 fL (79-100) 105 fL (79-100) Mean Corpuscular Hemoglobin 35 pg (25-35) 35 pg (25-35) Mean Corpuscular Hemoglobin Concent 34 g/dL (31-37) 34 g/dL (31-37) Red Cell Distribution Width 12.9 % (11.5-14.5) 12.7 % (11.5-14.5) Platelet Count 223 x10^3/uL (140-400) 190 x10^3/uL (140-400) Neutrophils (%) (Auto) 73 % (31-73) 71 % (31-73) Lymphocytes (%) (Auto) 12 % (24-48) 16 % (24-48) Monocytes (%) (Auto) 11 % (0-9) 9 % (0-9) Eosinophils (%) (Auto) 3 % (0-3) 5 % (0-3) Basophils (%) (Auto) 1 % (0-3) 0 % (0-3) Neutrophils # (Auto) 8.2 x10^3uL (1.8-7.7) 5.5 x10^3uL (1.8-7.7) Lymphocytes # (Auto) 1.4 x10^3/uL (1.0-4.8) 1.2 x10^3/uL (1.0-4.8) Monocytes # (Auto) 1.3 x10^3/uL (0.0-1.1) 0.7 x10^3/uL (0.0-1.1) Eosinophils # (Auto) 0.3 x10^3/uL (0.0-0.7) 0.4 x10^3/uL (0.0-0.7) Basophils # (Auto) 0.1 x10^3/uL (0.0-0.2) 0.0 x10^3/uL (0.0-0.2) Stool Occult Blood Positive (NEG) Sodium Level 141 mmol/L (136-145) 142 mmol/L (136-145) Potassium Level 3.8 mmol/L (3.5-5.1) 4.3 mmol/L (3.5-5.1) Chloride Level 102 mmol/L (98-107) 105 mmol/L (98-107) Carbon Dioxide Level 30 mmol/L (21-32) 31 mmol/L (21-32) Anion Gap 9 (6-14) 6 (6-14) Blood Urea Nitrogen 22 mg/dL (8-26) 15 mg/dL (8-26) Creatinine 1.0 mg/dL (0.7-1.3) 0.9 mg/dL (0.7-1.3) Estimated GFR (Cockcroft-Gault) 73.2 82.7 BUN/Creatinine Ratio 22 (6-20) Glucose Level 95 mg/dL (70-99) 101 mg/dL (70-99) Calcium Level 9.1 mg/dL (8.5-10.1) 8.5 mg/dL (8.5-10.1) Total Bilirubin 0.5 mg/dL (0.2-1.0) Aspartate Amino Transf (AST/SGOT) 22 U/L (15-37) Alanine Aminotransferase (ALT/SGPT) 45 U/L (16-63) Alkaline Phosphatase 88 U/L (46-116) Troponin I Quantitative 0.114 ng/mL (0.000-0.055) 0.115 ng/mL (0.000-0.055) 0.091 ng/mL (0.000-0.055) Total Protein 7.9 g/dL (6.4-8.2) Albumin 3.6 g/dL (3.4-5.0) Albumin/Globulin Ratio 0.8 (1.0-1.7) Lipase 113 U/L (73-393) Urine Collection Type Unknown Urine Color Yellow Urine Clarity Clear Urine pH 6.5 Urine Specific [place] >=1.030 Urine Protein Negative mg/dL (NEG-TRACE) Urine Glucose (UA) Negative mg/dL (NEG) Urine Ketones (Stick) Negative mg/dL (NEG) Urine Blood Negative (NEG) Urine Nitrite Negative (NEG) Urine Bilirubin Negative (NEG) Urine Urobilinogen Dipstick 1.0 mg/dL (0.2 mg/dL) Urine Leukocyte Esterase Negative (NEG) Urine RBC 1-2 /HPF (0-2) Urine WBC 1-4 /HPF (0-4) Urine Squamous Epithelial Cells Mod /LPF Urine Bacteria 0 /HPF (0-FEW) Urine Hyaline Casts Few /HPF Reticulocyte Count (auto) 1.2 % (0.5-2.5) Iron Level 66 ug/dL (65-175) Total Iron Binding Capacity 256 ug/dL (250-450) Iron Saturation 26 % (15-34) Triglycerides Level 89 mg/dL (0-150) Cholesterol Level 141 mg/dL (0-200) LDL Cholesterol, Calculated 66 mg/dL (0-100) VLDL Cholesterol, Calculated 18 mg/dL (0-40) Non-HDL Cholesterol Calculated 84 mg/dL (0-129) HDL Cholesterol 57 mg/dL (40-60) Cholesterol/HDL Ratio 2.5 Vitamin B12 Level 216 pg/mL (247-911) Test 10/02/18 05:00 White Blood Count 7.6 x10^3/uL (4.0-11.0) Red Blood Count 3.56 x10^6/uL (4.30-5.70) Hemoglobin 12.7 g/dL (13.0-17.5) Hematocrit 37.4 % (39.0-53.0) Mean Corpuscular Volume 105 fL (79-100) Mean Corpuscular Hemoglobin 36 pg (25-35) Mean Corpuscular Hemoglobin Concent 34 g/dL (31-37) Red Cell Distribution Width 12.8 % (11.5-14.5) Platelet Count 186 x10^3/uL (140-400) Neutrophils (%) (Auto) 69 % (31-73) Lymphocytes (%) (Auto) 16 % (24-48) Monocytes (%) (Auto) 9 % (0-9) Eosinophils (%) (Auto) 5 % (0-3) Basophils (%) (Auto) 0 % (0-3) Neutrophils # (Auto) 5.2 x10^3uL (1.8-7.7) Lymphocytes # (Auto) 1.2 x10^3/uL (1.0-4.8) Monocytes # (Auto) 0.7 x10^3/uL (0.0-1.1) Eosinophils # (Auto) 0.4 x10^3/uL (0.0-0.7) Basophils # (Auto) 0.0 x10^3/uL (0.0-0.2) Sodium Level 143 mmol/L (136-145) Potassium Level 4.9 mmol/L (3.5-5.1) Chloride Level 104 mmol/L (98-107) Carbon Dioxide Level 34 mmol/L (21-32) Anion Gap 5 (6-14) Blood Urea Nitrogen 14 mg/dL (8-26) Creatinine 0.8 mg/dL (0.7-1.3) Estimated GFR (Cockcroft-Gault) 94.8 Glucose Level 105 mg/dL (70-99) Calcium Level 9.0 mg/dL (8.5-10.1) Laboratory Tests Test 10/02/18 05:00 White Blood Count 7.6 x10^3/uL (4.0-11.0) Red Blood Count 3.56 x10^6/uL (4.30-5.70) Hemoglobin 12.7 g/dL (13.0-17.5) Hematocrit 37.4 % (39.0-53.0) Mean Corpuscular Volume 105 fL (79-100) Mean Corpuscular Hemoglobin 36 pg (25-35) Mean Corpuscular Hemoglobin Concent 34 g/dL (31-37) Red Cell Distribution Width 12.8 % (11.5-14.5) Platelet Count 186 x10^3/uL (140-400) Neutrophils (%) (Auto) 69 % (31-73) Lymphocytes (%) (Auto) 16 % (24-48) Monocytes (%) (Auto) 9 % (0-9) Eosinophils (%) (Auto) 5 % (0-3) Basophils (%) (Auto) 0 % (0-3) Neutrophils # (Auto) 5.2 x10^3uL (1.8-7.7) Lymphocytes # (Auto) 1.2 x10^3/uL (1.0-4.8) Monocytes # (Auto) 0.7 x10^3/uL (0.0-1.1) Eosinophils # (Auto) 0.4 x10^3/uL (0.0-0.7) Basophils # (Auto) 0.0 x10^3/uL (0.0-0.2) Sodium Level 143 mmol/L (136-145) Potassium Level 4.9 mmol/L (3.5-5.1) Chloride Level 104 mmol/L (98-107) Carbon Dioxide Level 34 mmol/L (21-32) Anion Gap 5 (6-14) Blood Urea Nitrogen 14 mg/dL (8-26) Creatinine 0.8 mg/dL (0.7-1.3) Estimated GFR (Cockcroft-Gault) 94.8 Glucose Level 105 mg/dL (70-99) Calcium Level 9.0 mg/dL (8.5-10.1) Allergies Allergies Coded Allergies Type Severity Reaction Last Updated Verified No Known Drug Allergies 10/16/15 No Disposition/Orders: D/C to Home Patient Instructions D/C PLANNING 35 MIN PEDRITO LEWIS MD Oct 02, 2018 15:35
--- NOTE | 2018-10-02 16:40 | NUR ---
Discharge Note: CAT DELGADO Discharge instructions and discharge home medications reviewed with Patient and a copy given. All questions have been answered and understanding verbalized.
== END 2018-10-02 16:15 | disposition home or self-care (01) | DRG 378 ==
LOC: ER 14:58 → 2 NORTH 18:34
PROVIDERS: ADMIT Family Medicine; ATTEND Family Medicine
DX: K62.5 Hemorrhage of anus and rectum (principal); R71.0 Precipitous drop in hematocrit; K56.41 Fecal impaction; R33.9 Retention of urine, unspecified; D51.0 Vitamin B12 deficiency anemia due to intrinsic factor deficiency; D53.9 Nutritional anemia, unspecified; E03.9 Hypothyroidism, unspecified; E66.01 Morbid (severe) obesity due to excess calories; E78.00 Pure hypercholesterolemia, unspecified; E78.5 Hyperlipidemia, unspecified; F41.9 Anxiety disorder, unspecified; I10 Essential (primary) hypertension; K21.9 Gastro-esophageal reflux disease without esophagitis; F32.9 Major depressive disorder, single episode, unspecified; K22.70 Barrett's esophagus without dysplasia; Z96.643 Presence of artificial hip joint, bilateral; K64.9 Unspecified hemorrhoids; Z82.49 Family history of ischemic heart disease and other diseases of the circulatory system; Z83.3 Family history of diabetes mellitus; Z90.49 Acquired absence of other specified parts of digestive tract; Z68.37 Body mass index [BMI] 37.0-37.9, adult
CPT/HCPCS: 36415; 71046; 74177; 80048; 80053; 80061; 81001; 82274; 82607; 83540; 83550; 83690; 84484; 85025; 85045; 93005; 93306; 96361; 96374; 96375; 96376; J1650; J2405; J3010; J3420; J7030; Q0163; Q9967; 99285-25

== ENCOUNTER 2019-09-07 17:39 | Emergency (ER) | payer MEDICARE ==
[~2019-09-07] VITALS: Ht 172.7 cm; Wt 114.0 kg
[~2019-09-07 17:39] MED LIST changes: +ASPI-612 PO; +ATEN50TA PO; +CITA20TA6 PO; +LEVO50TA5 PO; +LOVA40TA2 PO; +POLY17PO28 PO; +Pantoprazole PO
[2019-09-07] MEDS ORDERED: IV NORMAL SALINE 1000ML BAG 1,000 ML IV ONE (18:45)
[2019-09-07] MEDS ORDERED: DIPHTH,PERTUSS(ACELL),TET TOX 0.5 ML DISP.SYRIN. VAX IM ONE (19:00)
--- NOTE | 2019-09-07 19:09 | RAD ---
Left knee x-rays 3 views HISTORY: Left knee pain. FINDINGS: No fracture. No dislocation. Discontiguous enthesophyte quadriceps tendon insertion at the upper patella with well-defined sclerotic bony margins suggesting that this is chronic. Small ossicle patella tendon insertion at the tibial tuberosity with overlying superficial infrapatellar soft tissue thickening at the tendon which could indicate tendinopathy or tendon injury or overlying soft tissue swelling. IMPRESSION: No acute osseous injury. Infrapatellar soft tissue swelling as described above. Left elbow x-rays 3 views HISTORY: Left elbow pain. FINDINGS: Intra-articular fracture of the ulna at the olecranon with distraction of the olecranon from the ulna mild to 2 cm. No dislocation evident. IMPRESSION: Acute traumatic intra-articular fracture of the ulna with distraction of the olecranon as described above. No dislocation. Electronically signed by: Jose Francisco Linder MD (09/07/2019 7:06 PM) [id number]
--- NOTE | 2019-09-07 19:18 | PHYS DOC ---
Past Medical History Past Medical History: Alcoholism, Depression, High Cholesterol, Hypertension, Hypothyroid Past Surgical History: Appendectomy, Other Additional Past Surgical Histo: HIP REPLACEMENT, fundoplication, bilat rotator cuff, lower back sx Smoking Status: Former Smoker Alcohol Use: Occasionally Drug Use: None Adult General Chief Complaint Chief Complaint: MECHANICAL FALL HPI HPI Patient is a 74 year old male with history of alcoholism, hypertension, depression, who presents to the ED today to be evaluated status post falling. Patient reports drinking 4 beers and one mixed drink. He reports walking out of the facility, tripped on a curb and fell. Patient denies any loss of consciousness. He is complaining of sharp moderate pain to the left elbow and slight pain to the low back and left knee pain worse on MIRIAM. Denies hitting his head on the ground. Denies any loss of consciousness. Denies anything speci fically exacerbating or relieving his pain. He is refusing any help with alcoholism Review of Systems Review of Systems Constitutional: Denies fever or chills [] Eyes: Denies change in visual acuity, redness, or eye pain [] HENT: Denies nasal congestion or sore throat [] Respiratory: Denies cough or shortness of breath [] Cardiovascular: No additional information not addressed in HPI [] GI: Denies abdominal pain, nausea, vomiting, bloody stools or diarrhea [] : Denies dysuria or hematuria [] Musculoskeletal: Reports left elbow pain, left knee pain, low back pain Integument: Denies rash or skin lesions [] Neurologic: Denies headache, focal weakness or sensory changes [] All other systems were reviewed and found to be within normal limits, except as documented in this note. Current Medications Current Medications Current Medications Medications (Trade) Dose Ordered Sig/Xiao Start Time Stop Time Status Last Admin Dose Admin Diphtheria/ Tetanus/Acell Pertussis (Boostrix) 0.5 ml ONCE ONCE 09/07/19 19:00 09/07/19 19:01 DC 09/07/19 19:07 0.5 ML Morphine Sulfate (Morphine Sulfate) 5 mg 1X ONCE 09/07/19 19:30 09/07/19 19:31 UNV Sodium Chloride 1,000 ml @ 1,000 mls/hr 1X ONCE 09/07/19 18:45 09/07/19 19:44 2/29/20 19:06 1,000 MLS/HR Allergies Allergies Allergies Coded Allergies Type Severity Reaction Last Updated Verified No Known Drug Allergies 10/16/15 No Physical Exam Physical Exam Constitutional: Well developed, well nourished, no acute distress, non-toxic appearance. [] HENT: Normocephalic, atraumatic, bilateral external ears normal, oropharynx moist, no oral exudates, nose normal. [] Eyes: PERRLA, EOMI, conjunctiva normal, no discharge. [] Neck: Patient is in a c-collar Normal range of motion, no tenderness, supple, no stridor. [] Cardiovascular:Heart rate regular rhythm, no murmur [] Lungs & Thorax: Bilateral breath sounds clear to auscultation [] Abdomen: Bowel sounds normal, soft, no tenderness, no masses, no pulsatile masses. [] Skin: Warm, dry, bruising noted to the left and right dorsal fingers. Bruising noted to the left forehead. Back: Diffuse tenderness on palpation of bilateral lumbar spine as well as slight midline tenderness to the lumbar spine, no CVA tenderness. [] Extremities: Left elbow with moderate swelling around the olecranon. Tenderness on palpation of the left elbow olecranon process. Limited range of motion to the left elbow due to pain. Adequate radial, medial, ulnar sensation to the left upper extremity. +2 left radial pulse. Left knee with slight bruising tenderness on palpation of the anterior aspect of the knee. Full range of motion to the left. +2 left pedal pulse. Neurologic: Alert and oriented X 3, normal motor function, normal sensory function, no focal deficits noted. Cranial nerves II through XII intact Psychologic: Affect normal, judgement normal, mood normal. [] Current Patient Data Vital Signs Vital Signs Date Time Temp Pulse Resp B/P (MAP) Pulse Ox O2 Delivery O2 Flow Rate FiO2 09/07/19 18:51 66 95 09/07/19 17:53 97.5 18 134/76 (95) Room Air 97.5 EKG EKG [] Radiology/Procedures Radiology/Procedures []PROCEDURE: ELBOW LEFT 3V Left knee x-rays 3 views HISTORY: Left knee pain. FINDINGS: No fracture. No dislocation. Discontiguous enthesophyte quadriceps tendon insertion at the upper patella with well-defined sclerotic bony margins suggesting that this is chronic. Small ossicle patella tendon insertion at the tibial tuberosity with overlying superficial infrapatellar soft tissue thickening at the tendon which could indicate tendinopathy or tendon injury or overlying soft tissue swelling. IMPRESSION: No acute osseous injury. Infrapatellar soft tissue swelling as described above. Left elbow x-rays 3 views HISTORY: Left elbow pain. FINDINGS: Intra-articular fracture of the ulna at the olecranon with distraction of the olecranon from the ulna mild to 2 cm. No dislocation evident. IMPRESSION: Acute traumatic intra-articular fracture of the ulna with distraction of the olecranon as described above. No dislocation. Electronically signed by: Aurora Reeder MD (09/07/2019 7:06 PM) [id number] DICTATED and SIGNED BY: AURORA REEDER MD DATE: 09/07/19 1906 PROCEDURE: CT HEAD AND CERVICAL SPINE WO Exam: CT head, cervical spine and lumbar spine without contrast INDICATION: Fall, pain TECHNIQUE: Sequential axial images through the head, cervical spine and lumbar spine were obtained without the administration of IV contrast. Comparisons: None FINDINGS: Head: No focal parenchymal lesion or hemorrhage is identified. There is no midline shift or sulcal effacement. No acute vascular territory infarction is identified. Hannah-white distinction is preserved. The ventricular system is within normal limits without compression hydrocephalus. The basal cisterns are well maintained. The visualized portions of the paranasal sinuses and mastoid air cells are well-pneumatized. No acute fractures. Cervical spine: Straightening of the cervical spine which may be positional. Vertebral body heights are well-maintained. Fracture to the cervical spine is not identified. Multilevel spondylotic change in the cervical spine with degenerative disc disease diffusely present throughout cervical spine. Mild bilateral facet arthropathy is also noted in the cervical spine. Visualized paraspinal soft tissues are unremarkable. Lumbar spine: Vertebral body heights and alignment are well-maintained. Posterior lumbar fusion hardware device at the spinous processes of L3-L4. Fracture to the lumbar spine is not identified. Visualized paraspinal soft tissues are unremarkable. IMPRESSION: 1. No acute intracranial abnormality. 2. Negative CT C-spine for acute traumatic injury. 3. Negative CT L-spine for acute traumatic injury. Exposure: One or more of the following in the visualized dose reduction techniques were utilized for this examination: 1. Automated exposure control 2. Adjustment of the MA and/or KV according to patient size Use of iterative of reconstructive technique Electronically signed by: Mariajose Vargas MD (09/07/2019 7:13 PM) [id number] DICTATED and SIGNED BY: MARIAJOSE VARGAS MD DATE: 09/07/191912 Course & Med Decision Making Course & Med Decision Making Pertinent Labs and Imaging studies reviewed. (See chart for details) This is a 74-year-old male patient who presents to the ED today to be evaluated status post falling. Patient was drunk when he fell. There was no loss of consciousness. Complaining of low back pain, left knee pain, left elbow pain. CT of the head, cervical spine and lumbar spine are negative for any acute findings. Left knee x-rays interpreted by radiologist are negative for any acute findings, left elbow x-rays interpreted by radiologist were noted for acute traumatic intra-articular fracture of the ulna with distraction of the olecranon. No dislocation. Patient was placed in a long posterior arms splint by the ED RN, neurovascular exam is intact. Ice elevation encouraged. Follow-up with orthopedic doctor on Monday. reports they have their own orthopedic doctor at [facility]. Dragon Disclaimer Dragon Disclaimer This electronic medical record was generated, in whole or in part, using a voice recognition dictation system. Departure Departure Impression: Primary Impression: Fall from standing Additional Impressions: Olecranon fracture Bruising ETOHism Disposition: 01 HOME, SELF-CARE Condition: STABLE Referrals: PEDRITO LONDON DO (PCP) KULWINDER ALVARADO MD follow up on monday next week Patient Instructions: Elbow Fracture, Simple Additional Instructions: You broken your left elbow. Please contact your own orthopedic doctor or the provided orthopedic doctor and follow-up on Monday. Try to ice and elevate the extremity. Scripts Hydrocodone/Apap 5-325 (NORCO 5-325 TABLET) 1 Each Tablet 1 TAB PO Q6HRS, #12 TAB Prov: RICA MARTIN MAT 09/07/19 Problem Qualifiers Primary Impression: Fall from standing Encounter type: initial encounter Qualified Codes: W19.XXXA - Unspecified fall, initial encounter Additional Impressions: Olecranon fracture Encounter type: initial encounter Fracture type: closed Laterality: left Qualified Codes: S52.022A - Displaced fracture of olecranon process without intraarticular extension of left ulna, initial encounter for closed fracture RICA MARTIN APRN Sep 07, 2019 19:18
[2019-09-07] MEDS ORDERED: HYDR-3164 PO ×2 (19:30→19:31)
[2019-09-07] MEDS ORDERED: MORPHINE SULFATE 10 MG/ML VIAL. IV ONE (19:30)
[2019-09-07 20:40] LABS: BASO % 0 % (0-3); EOS # 0.3 x10^3/uL (0.0-0.7); EOS % 4 % (0-3); HEMATOCRIT 38.6 % (39.0-53.0); HEMOGLOBIN 13.8 g/dL (13.0-17.5); LYMPH # 1.7 x10^3/uL (1.0-4.8); LYMPH % 23 % (24-48); MEAN CORPUSCULAR HEMOGLOBIN 36 pg (25-35); MEAN CORPUSCULAR HGB CONC 36 g/dL (31-37); MEAN CORPUSCULAR VOLUME 101 fL (79-100); MONO # 1.2 x10^3/uL (0.0-1.1); MONO % 16 % (0-9); NEUT # 4.3 x10^3/uL (1.8-7.7); NEUT % 58 % (31-73); PLATELET COUNT 216 x10^3/uL (140-400); RED BLOOD COUNT 3.83 x10^6/uL (4.30-5.70); RED CELL DISTRIBUTION WIDTH 12.1 % (11.5-14.5); WHITE BLOOD COUNT 7.5 x10^3/uL (4.0-11.0)
[2019-09-07 20:51] LABS: CREATININE 0.9 mg/dL (0.7-1.3); GFR 82.5; POTASSIUM 3.6 mmol/L (3.5-5.1)
[2019-09-07 21:51] VITALS: BP 100/62
[2019-09-07] MEDS ORDERED: CONTRAST GIVEN. MC PRN (22:00)
[2019-09-07] MEDS ORDERED: IOHEXOL 300 MG/ML 100ML VIAL. IV ONE (22:00)
[2019-09-07 22:02] LABS: BILIRUBIN,URINE NEGATIVE (NEG); COLOR,URINE YELLOW; NITRITE,URINE NEGATIVE (NEG); PROTEIN,URINE NEGATIVE (NEG-TRACE)
[2019-09-07 22:06] LABS: CLARITY,URINE CLEAR
[2019-09-07 22:07] LABS: BACTERIA,URINE 0 /HPF (0-FEW); WBC,URINE OCC /HPF (0-4)
--- NOTE | 2019-09-07 22:26 | RAD ---
Exam: CT of abdomen and pelvis with contrast INDICATION: Fall, injury and hematuria TECHNIQUE: Sequential axial images through the abdomen and pelvis obtained following the administration of 75 mL of Omni 300 IV contrast. Sagittal and coronal reformatted images were reconstructed from the axial data and reviewed. Comparisons: 09/30/2018 FINDINGS: Heart size is normal. No pericardial effusion. Visualized lung bases are clear. No pleural effusion. Diffuse hepatic steatosis. Spleen, pancreas, gallbladder and adrenals are unremarkable. Kidneys demonstrate symmetric enhancement. No perinephric inflammation or hydronephrosis. No renal or ureteral calculi are identified. Evaluation pelvis is markedly limited secondary to metallic streak artifact from hip arthroplasties. Large and small bowel are unremarkable. Appendix is not identified. No free intra-abdominal air or fluid. No obstruction. Abdominal aorta has a normal course and caliber. No enlarged abdominal lymph nodes are identified. No suspicious osseous lesions or acute fractures. IMPRESSION: 1. No acute process identified within the abdomen or pelvis. 2. Diffuse hepatic steatosis. Exposure: One or more of the following in the visualized dose reduction techniques were utilized for this examination: 1. Automated exposure control 2. Adjustment of the MA and/or KV according to patient size 3. Use of iterative of reconstructive technique Electronically signed by: Mariajose Shields MD (09/07/2019 10:23 PM) [id number]
[2019-09-07] MEDS ORDERED: KETOROLAC 30 MG/ML VIAL. IVP ONE (22:30)
[2019-09-09] MEDS ORDERED: CITA20TA6 PO (16:32)
[2019-09-09] MEDS ORDERED: PROP80TA PO (16:33)
== END 2019-09-07 22:49 | disposition home or self-care (01) ==
LOC: ER 17:39
DX: S52.022A Displaced fracture of olecranon process without intraarticular extension of left ulna, initial encounter for closed fracture (principal); S80.02XA Contusion of left knee, initial encounter; M54.5 Low back pain; M50.30 Other cervical disc degeneration, unspecified cervical region; R31.9 Hematuria, unspecified; R51 Headache; E78.00 Pure hypercholesterolemia, unspecified; I10 Essential (primary) hypertension; E03.9 Hypothyroidism, unspecified; F10.20 Alcohol dependence, uncomplicated; Y90.9 Presence of alcohol in blood, level not specified; Z87.891 Personal history of nicotine dependence; Z98.890 Other specified postprocedural states; W18.39XA Other fall on same level, initial encounter; Y93.89 Activity, other specified; Y92.89 Other specified places as the place of occurrence of the external cause; Y99.8 Other external cause status
CPT/HCPCS: 36415; 70450; 72125; 72131; 73080; 73562; 74177; 80048; 81001; 82550; 85025; 90471; 90715; 96374; 96375; 99285; G0480; J1885; J2270; J7030; Q9967

== ENCOUNTER → 2020-01-20 | Outpatient (CLI) | payer MEDICARE ==
[2019-09-11 15:00] VITALS: BP 130/62
[~2020-01-20] MED LIST changes: +HYDR-3164 PO; +PROP80TA PO
== END | disposition home or self-care (01) ==
LOC: LAB 12:24
PROVIDERS: ATTEND Orthopaedic Surgery
DX: Z01.818 Encounter for other preprocedural examination (principal); Z11.59 Encounter for screening for other viral diseases; S52.032K Displaced fracture of olecranon process with intraarticular extension of left ulna, subsequent encounter for closed fracture with nonunion; X58.XXXD Exposure to other specified factors, subsequent encounter; Z91.09 Other allergy status, other than to drugs and biological substances; Z98.890 Other specified postprocedural states
CPT/HCPCS: U0003-CS

== ENCOUNTER → 2020-05-29 | Outpatient (CLI) | payer MEDICARE ==
[2019-09-11 15:00] VITALS: BP 130/62
[~2020-05-29] MED LIST changes: -ASPI-612 PO; +ASPI-886 PO
== END ==
LOC: LAB 13:46
PROVIDERS: ATTEND Orthopaedic Surgery
DX: Z01.812 Encounter for preprocedural laboratory examination (principal); Z20.828 Contact with and (suspected) exposure to other viral communicable diseases
CPT/HCPCS: U0003

== ENCOUNTER 2020-06-02 10:28 | Observation (INO) | payer MEDICARE ==
[~2020-06-02] VITALS: Ht 172.7 cm; Wt 114.3 kg
[~2020-06-02 10:28] MED LIST changes: +BUPIVACAINE-EPI 0.25%-1:200000 MPF 30 ML VIAL. INJ ONE; +HYDROmorphone 2 MG/ML VIAL IV PRN; +IV RINGERS,LACTATED 1000ML 1,000 ML IV SCH; +LIDOCAINE 1% PF 2 ML VIAL. ID PRN; +MORPHINE SULFATE 2 MG/ML VIAL. IV PRN; +ONDANSETRON PF 4 MG/2 ML VIAL. IV PRN; +PROCHLORPERAZINE 10 MG/2 ML VIAL. IV PRN; +fentaNYL PF VIAL 100 MCG/2 ML VIAL IV PRN
[2020-06-02 11:43] LABS: CALCIUM 8.9 mg/dL (8.5-10.1); GFR 72.8; POTASSIUM 4.1 mmol/L (3.5-5.1)
[2020-06-02 11:49] LABS: ALBUMIN 3.5 g/dL (3.4-5.0); ALBUMIN/GLOBULIN RATIO 0.9 (1.0-1.7); TOTAL BILIRUBIN 0.4 mg/dL (0.2-1.0); TOTAL PROTEIN 7.2 g/dL (6.4-8.2)
[2020-06-02] MEDS ORDERED: SCOPOLAMINE 1.5MG PATCH. TD ONE (12:11)
[2020-06-02] MEDS ORDERED: LIDOCAINE 2% PF 5 ML VIAL. ONE (12:58)
[2020-06-02] MEDS ORDERED: fentaNYL PF VIAL 100 MCG/2 ML VIAL ONE ×3 (12:58→17:22)
[2020-06-02] MEDS ORDERED: PROPOFOL 10 MG/ML (20ML) VIAL. IV ONE (12:58)
[2020-06-02] MEDS ORDERED: ROCURONIUM 50 MG/5 ML VIAL. ONE (14:48)
[2020-06-02] MEDS ORDERED: BUPIVACAINE-EPI 0.5%-1:200000 MPF 30 ML VIAL. INJ ONE (16:07)
[2020-06-02] MEDS ORDERED: PHENYLEPHRINE in 0.9% NACL PF 1 MG/10 ML SYRINGE. IV ONE (16:32)
[2020-06-02] MEDS ORDERED: ONDANSETRON PF 4 MG/2 ML VIAL. ONE (16:32)
[2020-06-02] MEDS ORDERED: GLYCOPYRROLATE 1 MG/5 ML VIAL. ONE (16:32)
[2020-06-02] MEDS ORDERED: DEXAMETHASONE SOD PHOS 4 MG/ML VIAL ONE (16:32)
[2020-06-02] MEDS ORDERED: NEOSTIGMINE METHYLSULFATE 5 MG/5 ML SYRINGE. ONE (16:32)
--- NOTE | 2020-06-02 17:03 | PDOC4 ---
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 Radiographs show incomplete healing, and retained hardware. Despite prolonged observation, the fracture has not gone on to heal completely and he still has pain. I recommended treatment of the nonunion surgically, and recommended removal of the prior fixation and revision fixation. Possible bone grafting. We discussed the potential risks of ongoing nonunion, malunion, bleeding, infection, scarring, neurovascular injury, stiffness, need for hardware removal, or other potential surgical or anesthetic complications. All of his questions about surgery were answered and he desired to proceed. Written consent was obtained. Procedure in Detail: The patient was identified in the preoperative holding area. The correct left elbow was marked by me. He was taken to the operating room where a general anesthetic was used. Preoperative antibiotics were given intravenously. A timeout procedure was performed. The patient was positioned laterally on a beanbag with the bony prominences well-padded. A tourniquet was placed on the upper arm. The limb was prepared in sterile fashion circumferentially with ChloraPrep solution. An impervious stockinette was placed over the lower arm. Sterile drapes were applied. An Esmarch bandage was used to exsanguinate the limb and the tourniquet was inflated to 275 mmHg. The previous incision was used, and a posterior approach to the olecranon was performed. Sharp dissection was used and Bovie electrocautery was used for hemostasis. The prior K wires and tension band wire were removed without difficulty. There is no evidence of infection. The fracture nonunion was identified and has fibrous tissue but it remains unstable and ununited. Care was made not to injure the ulnar nerve, or any tendon or muscle structures. Dissection was performed distally for plate application. Rongeurs was used to remove the fibrous tissue in the fracture gap. Copious saline irrigation was used. Demineralized bone matrix (Maia) was then applied to the fracture surfaces and fracture gap. A compression tenaculum clamp was applied, the fracture gap was reduced anatomically, and then K wires were used for provisional fixation. The large image intensifier C arm was used intraoperatively, and all of the images were interpreted intraoperatively by me. Satisfactory reduction was obtained with the K wires. A Synthes olecranon locking plate was applied. Cortical screws were placed distally with compression technique. Final adjustments to the plate position were made. Metaphyseal screws were placed in the proximal plate, crossing the fracture site and applying additional compression. Locking screws were then placed in the proximal and distal fragments for secure fixation. Images were taken again, and one screw was adjusted and then final images were taken. Satisfactory reduction and fixation was noted. Copious saline irrigatio n was used. The tourniquet was released. Bovie electrocautery was used for hemostasis. The skin edges were injected with 30 mL of 0.5% bupivacaine with epinephrine. The fascia was repaired with #0 Vicryl inverted interrupted sutures. My kitchen assistant repaired the subcutaneous tissues with #2-0 Vicryl sutures. She reapproximated the skin with leopoldo. Xeroform and a sterile dressing and a posterior splint were applied. Needle and sponge counts were correct. There were no apparent complications. KULWINDER BLACK MD Jun 02, 2020 17:03
--- NOTE | 2020-06-02 17:05 | PDOC1 ---
History and Physical Date of Admission Date of Admission DATE: 06/02/20 TIME: 17:03 Identification/Chief Complaint Chief Complaint Left ulna nonunion Source Source: Chart review, Patient History of Present Illness History of Present Illness Mr. Taylor had a prior surgery for displaced olecranon fracture. This has gone on to a nonunion. I recommended revision fixation and possible grafting. He is here for elective surgery on the nonunion. Past Medical History Cardiovascular: HTN, Hyperlipidemia Pulmonary: No pertinent hx CENTRAL NERVOUS SYSTEM: Other GI: Constipation, GERD, Other Heme/Onc: No pertinent hx Hepatobiliary: No pertinent hx Psych: Anxiety Musculoskeletal: low back pain, Osteoarthritis Rheumatologic: No pertinent hx Infectious disease: No pertinent hx Renal/: No pertinent hx Endocrine: Hypothyroidism Past Surgical History Past Surgical History: Appendectomy, Total hip replacement, Other Family History Family History: Coronary Artery Disease, High Cholestrol Social History ALCOHOL: occassional Drugs: None Current Medications Current Medications Current Medications Bupivacaine HCl/ Epinephrine Bitart (Sensorcaine-Epi 0.25%-1:737048 Mpf) 30 ml 1X ONCE INJ ; Start 06/02/20 at 07:00; Stop 06/02/20 at 07:01; Status DC Ondansetron HCl (Zofran) 4 mg PRN Q6HRS PRN IV NAUSEA/VOMITING; Start 06/02/20 at 07:00; Stop 06/03/20 at 06:59 Fentanyl Citrate (Fentanyl 2ml Vial) 25 mcg PRN Q5MIN PRN IV MILD PAIN 1-3; St art 06/02/20 at 07:00; Stop 06/03/20 at 06:59 Fentanyl Citrate (Fentanyl 2ml Vial) 50 mcg PRN Q5MIN PRN IV MODERATE TO SEVERE PAIN; Start 06/02/20 at 07:00; Stop 06/03/20 at 06:59 Morphine Sulfate (Morphine Sulfate) 1 mg PRN Q10MIN PRN IV SEVERE PAIN 7-10; Start 06/02/20 at 07:00; Stop 06/03/20 at 06:59 Ringer's Solution 1,000 ml @ 30 mls/hr Q24H IV Last administered on 06/02/20at 11:29; Start 06/02/20 at 07:00; Stop 06/02/20 at 18:59 Lidocaine HCl (Xylocaine-Mpf 1% 2ml Vial) 2 ml PRN 1X PRN ID PRIOR TO IV START; Start 06/02/20 at 07:00; Stop 06/03/20 at 06:59 Hydromorphone HCl (Dilaudid) 0.5 mg PRN Q10MIN PRN IV SEV PAIN, Second choice; Start 06/02/20 at 07:00; Stop 06/03/20 at 06:59 Prochlorperazine Edisylate (Compazine) 5 mg PACU PRN PRN IV NAUSEA, MRX1; Start 06/02/20 at 07:00; Stop 06/03/20 at 06:59 Cefazolin Sodium/ Dextrose 50 ml @ 100 mls/hr 1X PREOP PRN IV PRIOR TO PROCEDURE; Start 06/02/20 at 06:00; Stop 06/02/20 at 18:00 Scopolamine (Transderm-Scop) 1 patch 1X ONCE TD Last administered on 06/02/20at 12:16; Start 06/02/20 at 12:11; Stop 06/02/20 at 12:12; Status DC Propofol (Diprivan) 200 mg STK-MED ONCE IV ; Start 06/02/20 at 12:58; Stop 06/02/20 at 12:58; Status DC Lidocaine HCl (Lidocaine Pf 2% Vial) 5 ml STK-MED ONCE .ROUTE ; Start 06/02/20 at 12:58; Stop 06/02/20 at 12:58; Status DC Fentanyl Citrate (Fentanyl 2ml Vial) 100 mcg STK-MED ONCE .ROUTE ; Start 06/02/20 at 12:58; Stop 06/02/20 at 12:59; Status DC Rocuronium Rupert (Zemuron) 50 mg STK-MED ONCE .ROUTE ; Start 06/02/20 at 14:48; Stop 06/02/20 at 14:49; Status DC Bupivacaine HCl/ Epinephrine Bitart (Sensorcain-Epi 0.5%-1:981913 Mpf) 30 ml STK-MED ONCE INJ Last administered on 06/02/20at 16:07; Start 06/02/20 at 16:07; Stop 06/02/20 at 16:24; Status DC Dexamethasone Sodium Phosphate (Decadron) 4 mg STK-MED ONCE .ROUTE ; Start 06/02/20 at 16:32; Stop 06/02/20 at 16:32; Status DC Ondansetron HCl (Zofran) 4 mg STK-MED ONCE .ROUTE ; Start 06/02/20 at 16:32; Stop 06/02/20 at 16:32; Status DC Phenylephrine HCl (PHENYLEPHRINE in 0.9% NACL PF) 1 mg STK-MED ONCE IV ; Start 06/02/20 at 16:32; Stop 06/02/20 at 16:32; Status DC Glycopyrrolate (Robinul) 1 mg STK-MED ONCE .ROUTE ; Start 06/02/20 at 16:32; Stop 06/02/20 at 16:32; Status DC Neostigmine Rupert (Neostigmine Methylsulfate) 5 mg STK-MED ONCE .ROUTE ; Start 06/02/20 at 16:32; Stop 06/02/20 at 16:32; Status DC Fentanyl Citrate (Fentanyl 2ml Vial) 100 mcg STK-MED ONCE .ROUTE ; Start 06/02/20 at 16:42; Stop 06/02/20 at 16:42; Status DC Active Scripts Active Fairplay 5-325 Tablet (Acetaminophen/Hydrocodone Bitart) 1 Each Tablet 1 Tab PO Q6HRS Aspirin Ec (Aspirin) 81 Mg Tablet.dr 81 Mg PO DAILYWBKFT 30 Days Reported Propranolol Hcl 80 Mg Tablet 80 Mg PO DAILY Citalopram Hbr (Citalopram Hydrobromide) 20 Mg Tablet 20 Mg PO DAILY Levothyroxine Sodium 50 Mcg Tablet 50 Mcg PO DAILY Allergies Allergies: Coded Allergies: No Known Drug Allergies (Unverified , 09/10/19) Physical Exam General: Alert, Cooperative HEENT: Atraumatic Lungs: Normal air movement Heart: RRR Abdomen: Soft Extremities: Normal pulses, Other (Left elbow has a well-healed incision. There is tenderness at the olecranon. The hardware is barely palpable and does not seem to be causing any skin problems. There is no evidence of infection. There is no elbow effusion. No drainage. Distal neurovascular exam is unremarkable.) Skin: No significant lesion Neuro: Normal tone, Sensation intact Vitals Vitals Vital Signs Date Time Temp Pulse Resp B/P (MAP) Pulse Ox O2 Delivery O2 Flow Rate FiO2 06/02/20 11:25 97.0 89 20 108/61 100 Room Air 97.0 Labs Labs Laboratory Tests Test 06/02/20 10:00 Sodium Level 142 mmol/L (136-145) Potassium Level 4.1 mmol/L (3.5-5.1) Chloride Level 102 mmol/L (98-107) Carbon Dioxide Level 31 mmol/L (21-32) Anion Gap 9 (6-14) Blood Urea Nitrogen 17 mg/dL (8-26) Creatinine 1.0 mg/dL (0.7-1.3) Estimated GFR (Cockcroft-Gault) 72.8 BUN/Creatinine Ratio 17 (6-20) Glucose Level 106 mg/dL (70-99) Calcium Level 8.9 mg/dL (8.5-10.1) Total Bilirubin 0.4 mg/dL (0.2-1.0) Aspartate Amino Transf (AST/SGOT) 23 U/L (15-37) Alanine Aminotransferase (ALT/SGPT) 32 U/L (16-63) Alkaline Phosphatase 80 U/L (46-116) Total Protein 7.2 g/dL (6.4-8.2) Albumin 3.5 g/dL (3.4-5.0) Albumin/Globulin Ratio 0.9 (1.0-1.7) 25-Hydroxy Vitamin D Total 40.9 ng/mL (30-100) Laboratory Tests Test 06/02/20 10:00 Sodium Level 142 mmol/L (136-145) Potassium Level 4.1 mmol/L (3.5-5.1) Chloride Level 102 mmol/L (98-107) Carbon Dioxide Level 31 mmol/L (21-32) Anion Gap 9 (6-14) Blood Urea Nitrogen 17 mg/dL (8-26) Creatinine 1.0 mg/dL (0.7-1.3) Estimated GFR (Cockcroft-Gault) 72.8 BUN/Creatinine Ratio 17 (6-20) Glucose Level 106 mg/dL (70-99) Calcium Level 8.9 mg/dL (8.5-10.1) Total Bilirubin 0.4 mg/dL (0.2-1.0) Aspartate Amino Transf (AST/SGOT) 23 U/L (15-37) Alanine Aminotransferase (ALT/SGPT) 32 U/L (16-63) Alkaline Phosphatase 80 U/L (46-116) Total Protein 7.2 g/dL (6.4-8.2) Albumin 3.5 g/dL (3.4-5.0) Albumin/Globulin Ratio 0.9 (1.0-1.7) 25-Hydroxy Vitamin D Total 40.9 ng/mL (30-100) Images Images Recent elbow films show retained tension band wire fixation, and ulnar fracture gap, and nonunion of the proximal ulna at the olecranon VTE Prophylaxis Ordered VTE Prophylaxis Devices: No VTE Pharmacological Prophylaxi: Yes Assessment/Plan Assessment/Plan He is here for revision fixation and repair of the nonunion. He and I have discussed the risks benefits and alternatives. All of his questions were answered and he desires to proceed with surgery today. Justifications for Admission Other Justification KULWINDER ALVARADO MD Jun 02, 2020 17:05
[2020-06-02] MEDS: fentaNYL PF VIAL 100 MCG/2 ML VIAL IV PRN ×2 (17:28→17:49)
[2020-06-02] MEDS ORDERED: DEXTROSE 50% 25 GM / 50ML DISP.SYRIN. IV PRN (17:45)
[2020-06-02] MEDS ORDERED: POLYETHYLENE GLYCOL 3350 17 GM PACKET. PO PRN (17:45)
[2020-06-02] MEDS ORDERED: ONDANSETRON PF 4 MG/2 ML VIAL. IVP PRN (17:45)
[2020-06-02] MEDS ORDERED: MORPHINE SULFATE 2 MG/ML VIAL. IVP PRN (17:45)
[2020-06-02] MEDS ORDERED: oxyCODONE IR 5 MG TABLET PO PRN (17:45)
[2020-06-02] MEDS ORDERED: MORPHINE SULFATE 4 MG/ML VIAL. IVP PRN (17:45)
[2020-06-02] MEDS ORDERED: fentaNYL PF VIAL 100 MCG/2 ML VIAL IVP PRN (17:45)
[2020-06-02] MEDS ORDERED: oxyCODONE/APAP 5/325 1 TAB TABLET PO PRN (18:00)
[2020-06-02] MEDS ORDERED: diphenhydrAMINE 50 MG/ML VIAL IV PRN (18:15)
[2020-06-02] MEDS ORDERED: diphenhydrAMINE 50 MG/ML VIAL ONE (18:19)
[2020-06-02] MEDS: IV 1/2 NORMAL SALINE 1,000 ML IV SCH (18:30)
[2020-06-02 19:00] VITALS: BP 135/89
--- NOTE | 2020-06-02 19:00 | NUR ---
Patient admitted to room 460 per bed from PACU. Dressing CDI. Ice pack to site and elevated on pillow. Sensation intact to left hand, Patient able to move fingers, fingers warm to touch, color normal for race. IV site intact and fluids infusing. Patient alert and oriented x 4. Patient oriented to room, bed, call light and POC. Patient verbalized understanding. Post op vital monitoring initiated. Will monitor. Patient's at bedside visiting. Patient denies any complaints. See admission assessment/documentation.
[2020-06-02 19:30] VITALS: BP 145/90
[2020-06-02 20:00] VITALS: BP 133/70
[2020-06-02 20:30] VITALS: BP 133/91
[2020-06-02] MEDS ORDERED: diphenhydrAMINE HCL 25 MG CAPSULE PO PRN ×2 (21:30)
[2020-06-02 21:33] VITALS: BP 136/87
[2020-06-02] MEDS: oxyCODONE/APAP 5/325 1 TAB TABLET PO PRN (21:37)
[2020-06-02 23:01] VITALS: BP 139/84
[2020-06-03 03:21] VITALS: BP 138/89
[2020-06-03] MEDS ORDERED: MAGNESIUM HYDROXIDE 2,400 MG/30 ML ORAL.SUSP. PO PRN (06:00)
[2020-06-03] MEDS: oxyCODONE/APAP 5/325 1 TAB TABLET PO PRN (06:05)
[2020-06-03 06:18] VITALS: BP 115/78
[2020-06-03] MEDS ORDERED: LEVOTHYROXINE 50 MCG TABLET PO SCH (07:00)
[2020-06-03] MEDS ORDERED: ASPIRIN ENTERIC COATED 81 MG TABLET.DR. PO SCH (08:00)
[2020-06-03 08:46] VITALS: BP 111/68
[2020-06-03] MEDS ORDERED: PROPRANOLOL ER 80 MG CAP.ER.24H. PO SCH (09:00)
[2020-06-03] MEDS ORDERED: CHOLECALCIFEROL (VITAMIN D3) 1,000 UNIT TABLET PO SCH (09:00)
[2020-06-03] MEDS ORDERED: SENNOSIDES/DOCUSATE 8.6/50MG TABLET. PO SCH (09:00)
[2020-06-03] MEDS ORDERED: CITALOPRAM 20 MG TABLET. PO SCH (09:00)
[2020-06-03] MEDS: IV 1/2 NORMAL SALINE 1,000 ML IV SCH (10:23)
--- NOTE | 2020-06-03 10:51 | PDOC ---
PROGRESS NOTES Date of Service DATE: 06/03/20 TIME: 10:50 Subjective Subjective No complaints. Wants to go home. Arm is splinted. Objective Vital Signs Vital Signs Date Time Temp Pulse Resp B/P (MAP) Pulse Ox O2 Delivery O2 Flow Rate FiO2 06/03/20 08:48 93 111/68 06/03/20 08:00 Room Air 06/03/20 07:05 20 96 06/03/20 06:18 98.6 98.6 06/03/20 03:21 2.0 Physical Exam The splint is intact but there is some bloody drainage and we will change the splint prior to discharge. He has trace numbness/"fullness" in the little finger but no evidence of any significant neurovascular injury. Labs Laboratory Tests Test 06/02/20 10:00 Sodium Level 142 mmol/L (136-145) Potassium Level 4.1 mmol/L (3.5-5.1) Chloride Level 102 mmol/L (98-107) Carbon Dioxide Level 31 mmol/L (21-32) Anion Gap 9 (6-14) Blood Urea Nitrogen 17 mg/dL (8-26) Creatinine 1.0 mg/dL (0.7-1.3) Estimated GFR (Cockcroft-Gault) 72.8 BUN/Creatinine Ratio 17 (6-20) Glucose Level 106 mg/dL (70-99) Calcium Level 8.9 mg/dL (8.5-10.1) Total Bilirubin 0.4 mg/dL (0.2-1.0) Aspartate Amino Transf (AST/SGOT) 23 U/L (15-37) Alanine Aminotransferase (ALT/SGPT) 32 U/L (16-63) Alkaline Phosphatase 80 U/L (46-116) Total Protein 7.2 g/dL (6.4-8.2) Albumin 3.5 g/dL (3.4-5.0) Albumin/Globulin Ratio 0.9 (1.0-1.7) 25-Hydroxy Vitamin D Total 40.9 ng/mL (30-100) Assessment Assessment POD# 1 after ORIF nonunion left olecranon/ulna Plan Plan of Snf today. No lifting. Keep the splint intact and dry. Justicifation of Admission Dx: Justifications for Admission: Justification of Admission Dx: N/A KULWINDER ALVARADO MD Jun 03, 2020 10:51
[2020-06-03 11:00] VITALS: BP 128/76
--- NOTE | 2020-06-03 12:25 | NUR ---
REVIEWED DISCHARGE INSTRUCTIONS ORALLY WITH BIENVENIDO AND HIS . RESTRICTIONS TO ACTIVITIES OF DAILY LIVING AND FOLLOW UP. TRAMADOL SCRIPT SENT TO [facility] AT [facility]; VERBALIZED UNDERSTANDING
--- NOTE | 2020-06-03 15:06 | NUR ---
dismissed to home with . verbalized understanding of discharge instructions. restrictions to activities of daily living such as bathing ,driving and medications.
[2020-06-03] MEDS ORDERED: BISACODYL 10 MG SUPP.RECT. PR PRN (16:00)
--- NOTE | 2020-06-22 10:03 | NUR ---
Cefazolin started on 06/02 at 21:07--stop time of 2140 Cefazolin started on 06/03 at 03:07--stop time of 0340
== END 2020-06-03 15:12 | disposition home or self-care (01) ==
LOC: SURG 10:28 → 4 SOUTHEST 18:18
PROVIDERS: ADMIT Orthopaedic Surgery; ATTEND Orthopaedic Surgery
DX: S52.032K Displaced fracture of olecranon process with intraarticular extension of left ulna, subsequent encounter for closed fracture with nonunion (principal); Z20.828 Contact with and (suspected) exposure to other viral communicable diseases; I10 Essential (primary) hypertension; E03.9 Hypothyroidism, unspecified; E78.5 Hyperlipidemia, unspecified; K21.9 Gastro-esophageal reflux disease without esophagitis; K59.00 Constipation, unspecified; M54.5 Low back pain; M19.90 Unspecified osteoarthritis, unspecified site; F41.9 Anxiety disorder, unspecified; Z90.49 Acquired absence of other specified parts of digestive tract; Z96.649 Presence of unspecified artificial hip joint; Z79.82 Long term (current) use of aspirin; Z79.899 Other long term (current) drug therapy; X58.XXXD Exposure to other specified factors, subsequent encounter; Y93.89 Activity, other specified; Y92.89 Other specified places as the place of occurrence of the external cause; Y99.8 Other external cause status
CPT/HCPCS: 25400; 36415; 76000; 80053; 82306; 96365; 96366; C1713; G0378; G0379; J0690; J1100; J1200; J2270; J2370; J2405; J2704; J2710; J3010; J3490; Q0163

== ENCOUNTER → 2021-02-16 | Outpatient (CLI) | payer MEDICARE ==
[~2021-02-16] MED LIST changes: +BUPIVACAINE MPF 0.25% 10 ML VIAL. ONE; -BUPIVACAINE-EPI 0.25%-1:200000 MPF 30 ML VIAL. INJ ONE; -HYDROmorphone 2 MG/ML VIAL IV PRN; +IOHEXOL 180 MG/ML 10 ML VIAL. ONE; -IV RINGERS,LACTATED 1000ML 1,000 ML IV SCH; -LIDOCAINE 1% PF 2 ML VIAL. ID PRN; -MORPHINE SULFATE 2 MG/ML VIAL. IV PRN; -ONDANSETRON PF 4 MG/2 ML VIAL. IV PRN; -POLY17PO28 PO; +POLY17PO52 PO; -PROCHLORPERAZINE 10 MG/2 ML VIAL. IV PRN; -fentaNYL PF VIAL 100 MCG/2 ML VIAL IV PRN; +methylPREDNISolone ACETATE 40 MG/ML VIAL. ONE; +methylPREDNISolone ACETATE 80 MG/ML VIAL. ONE
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
--- NOTE | 2021-02-16 13:22 | PDOC4 ---
Procedure Note: ICD 10 Code: ICD 10 Code: M 47.816 M 47.817 Procedure Note: Patient was consented for lumbar facet medial branch blocks under fluoroscopic guidance. Risks were discussed including but not limited to: Bleeding, infection, possibility of epidural hematoma and subsequent neurological compromise, dural puncture, headaches, spinal cord and/or nerve damage, side effects of steroid medication, and poor results regarding pain control. Patient understands and wished to proceed. Under sterile prep and drape using C-arm fluoroscopic guidance AP and lateral and oblique views, bilateral L4-5 and L5-S1 facet joint MB's injections were performed, using quinke needles with stylette's x4,, medications injected: 120 mg Depo-Medrol +4 cc 0.25% bupivacaine +2 cc contrast. Condition at discharge stable patient tolerated the procedure well and no complications. GRACIELA POWERS MD Feb 16, 2021 13:22
== END ==
LOC: PNCL 08:28
PROVIDERS: ATTEND Anesthesiology
DX: M47.817 Spondylosis without myelopathy or radiculopathy, lumbosacral region (principal); M51.26 Other intervertebral disc displacement, lumbar region; M48.061 Spinal stenosis, lumbar region without neurogenic claudication; M19.90 Unspecified osteoarthritis, unspecified site; Z79.899 Other long term (current) drug therapy; Z98.41 Cataract extraction status, right eye; Z98.42 Cataract extraction status, left eye; Z96.643 Presence of artificial hip joint, bilateral; Z98.890 Other specified postprocedural states
CPT/HCPCS: 64493; 64494; J1030; J1040; J3490; Q9965

== ENCOUNTER 2021-03-09 10:59 | Day surgery (SDC) | payer MEDICARE ==
[~2021-03-09] VITALS: Ht 172.7 cm; Wt 113.0 kg
[~2021-03-09 10:59] MED LIST changes: -BUPIVACAINE MPF 0.25% 10 ML VIAL. ONE; +CHOL20009 PO; +FEXO180T16 PO; +HYDR-2763 PO; +HYDROmorphone 2 MG/ML VIAL IVP PRN; -IOHEXOL 180 MG/ML 10 ML VIAL. ONE; +IV RINGERS,LACTATED 1000ML 1,000 ML IV SCH; +MORPHINE SULFATE 2 MG/ML INJ. IVP PRN; +PANT40TA77 PO; +POLY17PO29 PO; +PROCHLORPERAZINE 10 MG/2 ML VIAL. IVP PRN; +VIT1TABL34 PO; +fentaNYL PF VIAL 100 MCG/2 ML VIAL IVP PRN; -methylPREDNISolone ACETATE 40 MG/ML VIAL. ONE; -methylPREDNISolone ACETATE 80 MG/ML VIAL. ONE
[2021-03-09 11:35] VITALS: BP 155/70
[2021-03-09] MEDS ORDERED: LIDOCAINE 1% PF 2 ML VIAL. ONE (11:57)
[2021-03-09] MEDS ORDERED: fentaNYL PF VIAL 100 MCG/2 ML VIAL ONE ×3 (11:59→15:50)
[2021-03-09] MEDS ORDERED: MIDAZOLAM HCL/PF 2 MG/2 ML VIAL. ONE (11:59)
[2021-03-09] MEDS ORDERED: BUPIVACAINE-EPI 0.25%-1:200000 MPF 30 ML VIAL. ONE (12:14)
[2021-03-09] MEDS ORDERED: POLYETHYLENE GLYCOL 3350 17 GM PACKET. PO PRN (12:15)
[2021-03-09] MEDS ORDERED: fentaNYL PF VIAL 100 MCG/2 ML VIAL IVP PRN (12:15)
[2021-03-09] MEDS ORDERED: MORPHINE SULFATE 4 MG/ML INJ. IVP PRN (12:15)
[2021-03-09] MEDS ORDERED: ONDANSETRON PF 4 MG/2 ML VIAL. IVP PRN (12:15)
[2021-03-09] MEDS ORDERED: oxyCODONE IR 5 MG TABLET PO PRN (12:15)
[2021-03-09] MEDS ORDERED: HYDROcodone/APAP 7.5/325MG 1 TAB TABLET PO PRN ×2 (12:15)
[2021-03-09] MEDS ORDERED: MORPHINE SULFATE 2 MG/ML INJ. IVP PRN (12:15)
[2021-03-09] MEDS ORDERED: DEXTROSE 50% 25 GM / 50ML DISP.SYRIN. IV PRN (12:15)
[2021-03-09] MEDS ORDERED: PROPOFOL 10 MG/ML (20ML) VIAL. IV ONE ×2 (12:22→14:11)
[2021-03-09] MEDS ORDERED: LIDOCAINE 2% PF 5 ML VIAL. ONE ×2 (12:22→14:11)
[2021-03-09] MEDS ORDERED: ROCURONIUM 50 MG/5 ML VIAL. ONE (12:23)
[2021-03-09] MEDS ORDERED: HYDR-2763 PO (12:24)
--- NOTE | 2021-03-09 12:53 | DISCH ---
DISCHARGE INSTRUCTIONS Condition on Discharge Condition on Discharge: Stable Activity After Discharge Activity Instructions for Disc: Avoid exertion, Walk in house Bathing Instructions: Shower-keep dressing dry Lifting Instructions after Dis: No heavy lifting, No pulling or pushing, Add. restrict see below Exercise Instruction after Dis: Exercise per therapy Driving Instructions after Dis: No driving for 2 months Weight Bearing Status after Di: As tolerated Diet after Discharge Diet after Discharge: Regular Diet Texture: Regular Liquid Texture: Thin Liquid Swallowing Supervision: None needed Wound Incision Care Wound/Incision Care: Ice to area for comfort, Keep wound/cast CDI, May get incision wet Other wound/incision instructi: ok to remove dressing and shower in 2 days Checks after Discharge DC Comment: none Community/Resources/Services Services at Discharge: PT EVALUATE & TREAT Contacting the DRJazmin after DC Call your doctor for: If your condition worsens Treatment/Equipment after DC Adaptive Equipment Issued: None Comment: MAGDA Duffy DO Mar 09, 2021 12:53 pm
[2021-03-09] MEDS ORDERED: SEVOFLURANE 61 TO 120 MINUTES. IH ONE (13:36)
[2021-03-09] MEDS ORDERED: DEXAMETHASONE SOD PHOS 4 MG/ML VIAL ONE (13:36)
[2021-03-09] MEDS ORDERED: ONDANSETRON PF 4 MG/2 ML VIAL. ONE (13:36)
[2021-03-09] MEDS ORDERED: THROMBIN TOPICAL 20,000 UNIT SPRAY.SYRN KIT TP ONE (13:48)
[2021-03-09] MEDS ORDERED: PHENYLEPHRINE 10 MG/ML VIAL. ONE ×2 (14:11)
[2021-03-09] MEDS ORDERED: GLYCOPYRROLATE 1 MG/5 ML VIAL. ONE (14:44)
[2021-03-09] MEDS ORDERED: NEOSTIGMINE METHYLSULFATE 5 MG/5 ML SYRINGE. ONE (14:45)
--- NOTE | 2021-03-09 15:07 | PDOC4 ---
OPERATIVE NOTE: DATE OF PROCEDURE: March 10, 2021 PROCEDURE: Open reduction internal fixation left proximal humerus 2 part displaced PREOPERATIVE DIAGNOSIS: Closed 2 part proximal humerus fracture, left, displaced POSTOPERATIVE DIAGNOSIS: SAME SURGEON: Jon Comer DO EMULSION COATER: None EBL: <50cc SPECIMEN: None ANESTHESIA: General POSITION: Modified Beach chair COMPLICATIONS: None IMPLANT SPECIFICATIONS: [employer] proximal humerus locking plate DESCRIPTION OF PROCEDURE: Patient was seen in the preoperative holding area. Site was marked. Consent was verified. Patient received preoperative antibiotics and was wheeled back to the operating room. Once in the operating room, department of anesthesia administered anesthetic and maintained control of the airway. The patient was then positioned in modified beach-chair with the operative arm free off the side of the table. Patient was secured on the table in this position. Time-out was observed. The operative extremity and shoulder girdle were sterilely prepped and draped in the usual sterile fashion. At this point, a 15 cm incision was made over the anterior shoulder, estimating the deltopectoral interval. Soft tissue dissection was carried out sharply down through the subcutaneous tissues down to the fascial layer. The fascia was split just medial to the cephalic vein, which was retracted laterally. Once the deltopectoral interval was open, the biceps tendon was identified. The fascia was opened up over the biceps tendon to the glenoid. Biceps was tenotomized at this point. At this point, the fracture hematoma was removed and suctioned dry. The subdeltoid bursa was removed. Direct reduction maneuvers were employed to align the fracture. A plate was placed on the lateral surface of the humerus just lateral to the biciptal groove and held in place with provisional K-wires to approximate its position as well as the fracture reduction. It was found to be adequate on biplanar fluoroscopy. At this point, the fracture was fixed using standard AO bridging technique with proximal unicortical locking screws, reaching the subchondral bone medially. Distally, it was fixed with bicortical nonlocking screws. After this, the rotator cuff was further secured to the plate through the suturing holes and tied to maintain tension. At this point, final picture was taken AP and lateral and found to be in adequate position. At this point, the wound was lightly irrigated and suctioned dry. A layered closure was performed in a typical fashion, closing the deltopectoral interval with #1 Vicryl in interrupted fashion. Deep subcutaneous tissues were closed with #1 Vicryl, followed by 2-0 Monocryl, and standard layered closure. A large bulky dressing and sling were applied. Anesthesia was reversed, and patient was transferred to postop in apparent stable condition. DISPOSITION: To PACU stable PROGNOSIS: MAGDA Brunson DO Mar 09, 2021 3:07 pm
[2021-03-09] MEDS ORDERED: MORPHINE SULFATE 2 MG/ML INJ. ONE (15:51)
[2021-03-09] MEDS: fentaNYL PF VIAL 100 MCG/2 ML VIAL IVP PRN ×2 (15:57→16:16)
[2021-03-09 16:26] VITALS: BP 131/108
[2021-03-10] MEDS ORDERED: MAGNESIUM HYDROXIDE 2,400 MG/30 ML ORAL.SUSP. PO PRN (06:00)
[2021-03-10] MEDS ORDERED: SENNOSIDES/DOCUSATE 8.6/50MG TABLET. PO SCH (09:00)
[2021-03-10] MEDS ORDERED: BISACODYL 10 MG SUPP.RECT. PR PRN (16:00)
== END 2021-03-09 17:40 | disposition home or self-care (01) ==
LOC: SURG 10:59
PROVIDERS: ATTEND Orthopaedic Surgery
DX: S42.292A Other displaced fracture of upper end of left humerus, initial encounter for closed fracture (principal); I10 Essential (primary) hypertension; I25.10 Atherosclerotic heart disease of native coronary artery without angina pectoris; E78.00 Pure hypercholesterolemia, unspecified; E66.9 Obesity, unspecified; E03.9 Hypothyroidism, unspecified; K21.9 Gastro-esophageal reflux disease without esophagitis; M19.90 Unspecified osteoarthritis, unspecified site; F41.9 Anxiety disorder, unspecified; Z87.891 Personal history of nicotine dependence; Z79.899 Other long term (current) drug therapy; Z98.890 Other specified postprocedural states; Z72.89 Other problems related to lifestyle; Z82.49 Family history of ischemic heart disease and other diseases of the circulatory system; Z80.3 Family history of malignant neoplasm of breast; Z83.3 Family history of diabetes mellitus; X58.XXXA Exposure to other specified factors, initial encounter; Y93.89 Activity, other specified; Y92.89 Other specified places as the place of occurrence of the external cause; Y99.8 Other external cause status
CPT/HCPCS: 23615; 97110; 97162; 97530; A4928; A4930; A6253; A6402; C1713; J0690; J1100; J2250; J2270; J2370; J2405; J2704; J2710; J3010; J3490; 76000; A4322

== ENCOUNTER → 2021-03-22 | Outpatient (CLI) | payer MEDICARE ==
[2021-03-09 16:26] VITALS: BP 131/108
[~2021-03-22] MED LIST changes: +BUPIVACAINE MPF 0.25% 10 ML VIAL. ONE; -HYDROmorphone 2 MG/ML VIAL IVP PRN; +IOHEXOL 180 MG/ML 10 ML VIAL. ONE; -IV RINGERS,LACTATED 1000ML 1,000 ML IV SCH; -MORPHINE SULFATE 2 MG/ML INJ. IVP PRN; +OXYC1TAB22 PO; -PROCHLORPERAZINE 10 MG/2 ML VIAL. IVP PRN; -fentaNYL PF VIAL 100 MCG/2 ML VIAL IVP PRN; +methylPREDNISolone ACETATE 80 MG/ML VIAL. ONE
--- NOTE | 2021-03-22 09:02 | PDOC ---
Progress Note - Pain Clinic Date of Service: DOS: DATE: 03/22/21 TIME: 08:58 Diagnosis: Dx: Lumbar and lumbosacral spondylosis with lumbar spinal stenosis and lumbar postlaminectomy syndrome with lumbar degenerative disc disease History or Present Illness: HPI: 35-year-old male returns for follow-up status post bilateral L4-5 and L5-S1 facet medial branch blocks on February 16, 2021 patient reports did very well 80% improvement for the first 2 weeks then he fell off of a ladder when he was doing some work at his home and fractured his left shoulder and eventually had ORIF of the left shoulder and is recovering from that very well. Patient reports back is been hurting since the surgery in the fall but prior to that was doing much better about 80% improvement patient reports now the pain is in the low back more on the left than the right but present bilaterally aching and sharp radiating across the low back and not into the lower extremities on and off in intensity worse with activity worse with walking standing changing positions getting up from seated position on sitting for prolonged periods. Patient reports difficulty sleeping as well. Patient reports prior to that though he was doing much better with distance walking doing household activities work activities travel with greater ease and comfort sleeping better at night. Patient reports his pain now is a 10 on scale 10 is worse with past week 9 on average 5 its least and is a 5 today. Patient reports no bowel or bladder incontinence no motor deficits. Physical Exam: VS: Blood pressure is 134 71 pulse 88 respirations 16 temperature height is 5 foot 8 inches weight is 248 pounds PE: PHYSICAL EXAMINATION: GENERAL: The patient is awake, alert, oriented, appropriate, very pleasant in demeanor HEENT: Shows normocephalic, atraumatic. Extraocular movements are intact and symmetrical. Oral cavity: Mucous membranes moist and pink. NECK: Shows anterior throat supple without palpable lymphadenopathy noted. Swallow reflex symmetrical. CHEST: Shows normal on inspection. Breath sounds are clear bilaterally, no rales rhonchi or wheezes auscultated. HEART: Shows S1, S2 clear. No murmurs auscultated. ABDOMEN: Soft, nontender, nondistended, obese. No palpable organomegaly is note d. BACK: Shows spine grossly in the midline. Normal-appearing cervical lordotic curvature. There is slightly increased thoracic kyphosis, some minor flattening of the lumbar lordotic curvature. Lumbar paraspinous muscles show symmetrical on inspection, on palpation shows some moderate tenderness diffusely throughout the upper, middle and lower distribution of the paraspinous muscles, but without specific trigger points, without radiation of pain. The patient has good rotational motion of the lumbar spine, both laterally as well as extension and flexion with significant tenderness with extension lumbar spine and axial loading also with left greater than right lateral rotation greater than 10 degrees of the lumbar spine with significant pain noted forward flexion is performed without difficulty at 45 degrees. No tenderness over the spinous processes, sacrum or sacroiliac regions. EXTREMITIES: Lower extremities show deep tendon reflexes 1+ in the patellar and tendo calcaneus tendons. Motor exam is 5 on a scale of 5 with right dorsiflexion, extension, quadriceps and hamstring flexion and 5/5 on the left. Peripheral pulses are 1+ posterior tibial. No peripheral edema is noted bilaterally. Lower extremities are warm and dry to touch, equal in color and ap pearance. SKIN: Shows warm and dry, good turgor. No edema. No sores, rashes or bruising throughout. Procedure: Procedure: Options discussed with patient. Patient chart was reviewed his current medication regimen updated current review of systems updated today as well. We will proceed with bilateral L4-5 and L5-S1 facet medial branch blocks today with fluoroscopic guidance. Risks were discussed including but not limited to: Bleeding, infection, possibility of epidural hematoma and subsequent neurological compromise, dural puncture, headaches, spinal cord and/or nerve damage, side effects of steroid medication, and poor results regarding pain control. Patient understands and wished to proceed. Patient will return to the clinic in approximate 2 weeks for follow-up, was counseled as return appointment, activity level, and side effects to be aware of. Medication Injected: Med Injected: Under sterile prep and drape using C-arm fluoroscopic guidance AP and lateral and oblique views, bilateral L4-5 and L5-S1 facet joint MB's injections were performed, using quinke needles with stylette's x4,, medications injected: 120 mg Depo-Medrol +4 cc 0.25% bupivacaine +2 cc contrast. Condition at discharge stable patient tolerated the procedure well and no complications. Condition at Discharge: Condition at Discharge: Condition at discharge stable, patient already procedure well and had no complications. GRACIELA POWERS MD Mar 22, 2021 09:02
--- NOTE | 2021-03-22 09:03 | PDOC4 ---
Procedure Note: ICD 10 Code: ICD 10 Code: M4 7.816 M4 7.817 M4 8.07 Procedure Note: Patient was consented for bilateral lumbar facet medial branch blocks with fluoroscopic guidance. Risks were discussed including but not limited to: Bleeding, infection, possibility of epidural hematoma and subsequent neurological compromise, dural puncture, headaches, spinal cord and/or nerve damage, side effects of steroid medication, and poor results regarding pain control. Patient understands and wished to proceed. Under sterile prep and drape using C-arm fluoroscopic guidance AP and lateral and oblique views, bilateral L4-5 and L5-S1 facet joint MB's injections were performed, using quinke needles with stylette's x4,, medications injected: 120 mg Depo-Medrol +4 cc 0.25% bupivacaine +2 cc contrast. Condition at discharge stable patient tolerated the procedure well and no complications. GRACIELA POWERS MD Mar 22, 2021 09:02
== END | disposition home or self-care (01) ==
LOC: PNCL 07:48
PROVIDERS: ATTEND Anesthesiology
DX: M47.817 Spondylosis without myelopathy or radiculopathy, lumbosacral region (principal); M48.061 Spinal stenosis, lumbar region without neurogenic claudication; M96.1 Postlaminectomy syndrome, not elsewhere classified; M51.36 Other intervertebral disc degeneration, lumbar region; M47.816 Spondylosis without myelopathy or radiculopathy, lumbar region; M48.07 Spinal stenosis, lumbosacral region; I25.10 Atherosclerotic heart disease of native coronary artery without angina pectoris; I10 Essential (primary) hypertension; E78.00 Pure hypercholesterolemia, unspecified; E66.9 Obesity, unspecified; K21.9 Gastro-esophageal reflux disease without esophagitis; M19.90 Unspecified osteoarthritis, unspecified site; E03.9 Hypothyroidism, unspecified; F41.9 Anxiety disorder, unspecified; Z87.891 Personal history of nicotine dependence; Z72.89 Other problems related to lifestyle; Z79.899 Other long term (current) drug therapy; Z98.890 Other specified postprocedural states
CPT/HCPCS: 64493; 64494; J1040; J3490; Q9965

== ENCOUNTER 2021-03-30 13:15 | Inpatient (IN) | payer MEDICARE ==
[~2021-03-30] VITALS: Ht 172.7 cm; Wt 118.1 kg
[~2021-03-30 13:15] MED LIST changes: -BUPIVACAINE MPF 0.25% 10 ML VIAL. ONE; -IOHEXOL 180 MG/ML 10 ML VIAL. ONE; -OXYC1TAB22 PO; -methylPREDNISolone ACETATE 80 MG/ML VIAL. ONE
[2021-03-30 13:33] VITALS: BP 108/67
[2021-03-30] MEDS ORDERED: PIP/TAZO PER PHARMACY MC PRN (13:45)
[2021-03-30] MEDS ORDERED: LIDOCAINE WITH 8.4% SOD BICARB 3 ML DISP.SYRIN. INJ ONE (14:45)
[2021-03-30] MEDS ORDERED: IOHEXOL 300 MG/ML 50 ML VIAL. ONE (14:50)
[2021-03-30] MEDS ORDERED: LIDOCAINE WITH 8.4% SOD BICARB 3 ML DISP.SYRIN. ONE (14:52)
[2021-03-30 15:00] VITALS: BP 115/61
--- NOTE | 2021-03-30 15:03 | HP ---
ADMIT DATE: 03/30/2021 CHIEF COMPLAINT: Right hip septic arthritis. HISTORY OF PRESENT ILLNESS: The patient is a pleasant 75-year-old male who presented to [facility] with hip pain. He states it woke him up screaming. They did some imaging confirming right hip septic arthritis. He has been transferred here for Orthopedic consultation and consultation with Dr. Terrazas of the Interventional Radiology service to have the hip drained. PAST MEDICAL HISTORY: Left elbow surgery, recent left shoulder surgery. ALLERGIES: None. FAMILY HISTORY: Diabetes. SOCIAL HISTORY: He is retired from [employer]. He has been for 30 years to his , Savana, who is here and seems to be very good support for him. MEDICATIONS: Reviewed, please refer to the MRAD. REVIEW OF SYSTEMS: GENERAL: No history of weight change, weakness or fevers. SKIN: No bruising, hair changes or rashes. EYES: No blurred, double or loss of vision. NOSE AND THROAT: No history of nosebleeds, hoarseness or sore throat. HEART: No history of palpitations, chest pain or shortness of breath on exertion. LUNGS: Denies cough, hemoptysis, wheezing or shortness of breath. GASTROINTESTINAL: Denies changes in appetite, nausea, vomiting, diarrhea or constipation. GENITOURINARY: No history of frequency, urgency, hesitancy or nocturia. NEUROLOGIC: Denies history of numbness, tingling, tremor or weakness. PSYCHIATRIC: No history of panic, anxiety or depression. ENDOCRINE: No history of heat or cold intolerance, polyuria or polydipsia. EXTREMITIES: He complains of right hip pain. PHYSICAL EXAMINATION: VITALS: Within normal limits and are stable. GENERAL: No apparent distress. Alert and oriented. HEENT: Normal cephalic atraumatic, external auditory canals are patent. EYES: Extraocular muscles are intact, pupils are equally round and reactive to light and accommodation. MUSCULOSKELETAL: Well developed, well nourished, good range of motion. ENDOCRINE: No thyromegaly was palpated. LYMPHATICS: No cervical chain or axillary nodes were noted. HEMATOPOIETIC: No bruising. NECK: Supple, no JVD, no thyromegaly was noted. LUNGS: Clear to auscultation in all lung david without rhonchi or wheezing. HEART: RRR, S1, S2 present. Peripheral pulses intact, no obvious murmurs were noted. ABDOMEN: Soft, nontender. Positive bowel sounds no organomegaly, normal bowel sounds. EXTREMITIES: The right hip is painful to palpation and to passive movement. NEUROLOGIC: Normal speech, normal tone. A and O x 3, moves all extremities, no obvious focal deficits. PSYCHIATRIC: Normal affect, normal mood. Stable. SKIN: No ulcerations or rashes, good skin turgor, no jaundice. VASCULAR: Good capillary refill, neurovascular bundle appears to be intact. ASSESSMENT AND PLAN: Right hip septic arthritis. The patient has been admitted. We will consult Orthopedics. Consult Interventional Radiology. IV Zosyn, home meds, deep venous thrombosis prophylaxis. Full code. Consult ID. MER/MICKEY DR: MER/duncan TID: [id number]
[2021-03-30] MEDS: MORPHINE SULFATE 2 MG/ML INJ. IVP PRN ×3 (15:38→22:22)
[2021-03-30] MEDS: PIPERACILLIN/TAZOBACTAM 4.5 GM in IV NORMAL SALINE 100ML 100 ML IV SCH (17:04)
[2021-03-30 17:12] LABS: BF SOURCE SYNOVIAL
[2021-03-30 17:13] LABS: BF CLARITY TURBID; BF COLOR YELLOW; BF MON % 4 %; BF PMN % 96 %; BF RBC COUNT 18000 /cmm (Not Established); BF WBC COUNT 85000 /cmm (Not Established)
--- NOTE | 2021-03-30 17:17 | RAD ---
IR ARTHROCENTESIS ASP/INJ RIGHT 03/30/2021 2:49 PM Comparison: None. Indication: Right hip arthroplasty with pain. Septic arthritis. Technique: Informed verbal and written consent was obtained after the explanation of risks, benefits, and possib le complications. Prior to the procedure, final verification was performed. Utilizing sterile technique, a right hip arthrocentesis was performed under fluoroscopy. 1% Lidocaine was administered as a local anesthetic. A 18-gauge spinal needle was inserted into the joint capsule under fluoroscopic guidance. 10 cc cloudy suspected purulent material aspirated from the joint space . The patient tolerated the procedure well, and there were no immediate complications. Fluoroscopy time: 0.2 minutes Number of images: 1 Impression: Successful right hip arthrocentesis under fluoroscopic guidance. Electronically signed by: Sandi Pinzon MD (03/30/2021 5:14 PM) [id number]
[2021-03-30 19:15] VITALS: BP 110/68
[2021-03-30 23:00] VITALS: BP 112/68
[2021-03-31] VITALS (8 sets, daily range): BP systolic 110–158; BP diastolic 59–89
[2021-03-31] MEDS: PIPERACILLIN/TAZOBACTAM 4.5 GM in IV NORMAL SALINE 100ML 100 ML IV SCH ×4 (00:03→16:44)
[2021-03-31] MEDS: MORPHINE SULFATE 2 MG/ML INJ. IVP PRN ×5 (00:30→22:09)
--- NOTE | 2021-03-31 06:06 | CONS ---
DATE OF CONSULTATION: 03/30/2021 ORTHOPEDIC CONSULTATION REQUESTING PHYSICIAN: Dr. Harris. REASON FOR THE CONSULTATION: Right hip pain with suspicion of septic arthritis. 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 Swanson at [facility]. The patient states that he had the sudden but atraumatic onset of right hip pain that started on Monday, a couple of days ago during the [employer] game. He continued to have pain throughout that evening and had severe pain Monday morning, eventually presenting to [facility] on Monday to the emergency department with severe right hip pain on any movement. He denies any unusual movements, any traumatic activity. No fever or chills. Of note, he did have recent left shoulder surgery by Dr. Saldivar for a left shoulder fracture and also notes according to his approximately one week ago that he had teeth pulled. He is unsure of any prophylactic antibiotic given along with that procedure. PAST SURGICAL HISTORY: He indicates surgical history of bilateral total hip arthroplasties, the recent left shoulder surgery for fracture and more remote left elbow surgery. FAMILY HISTORY: Diabetes. ALLERGIES: He has no known drug allergies. MEDICATIONS: List is reviewed. SOCIAL HISTORY: He is accompanied by his . He is and retired. REVIEW OF SYSTEMS: Denies any previous hip pain, specifically denies any febrile illness. No chest pain, shortness of breath, other joint pain aside from some back and left shoulder blade area pain preexisting the fall on his left shoulder that resulted in fracture. He had been treated at the pain clinic by Dr. Jackson, but it really not solved the back pain. PHYSICAL EXAMINATION: His leg lengths are equal. He has good stability of bilateral hips, but is tender on any movement of the right hip compared to the left; normal alignment, stability, bilateral knees and ankles, well-healed incisions, posterior approach total hip arthroplasties bilaterally and overall intact motor function, distal pulses, sensation, reflexes, skin in both upper and lower extremities throughout with a well healing deltopectoral incision over the left shoulder. IMAGING: X-rays show well placed bilateral total hip arthroplasty components. The left appears to have had a revision with longer stem and cerclage cabling. The right in retrospect with a lot further review appears to be a skgas-jx-muvto Biomet Taperloc stem that does not appear to have any loosening or surrounding bony abnormality noted. IMPRESSION: Right hip pain. TREATMENT PLAN: He was admitted to the hospitalist and aspiration carried out under radiologic guidance showing return of synovial fluid, which was sent for white blood cell count of 85,000, red blood cell count of 18,000 polymorphonuclear cells, 96%. Cultures pending. I did go over with him the possibility of septic arthritis in the hip. There is also a concern for a potential synovitis and reaction from the chaml-af-thsyp hip, which is certainly a well-documented phenomenon. I had originally talked to him about the possibility of exploring the hip and irrigation and debridement, retention of the components and perhaps even a polyethylene exchange if it was a conventional polyethylene and metal total hip arthroplasty; however, with the dsglz-qi-brdtx aspect, this becomes much more of a complicated diagnostic issue. I did speak with one of the surgeons from the [facility] associated with Dr. Swanson and they do have a joint revision specialist, Dr. Mims who would be willing to see this patient in followup. Given the concern for possible septic hip at this point, I did discuss with him undergoing an exploration with irrigation, debridement and given that the timeline of this if the teeth are assumed as a cause is about 1 week there is certainly a possibility of debridement and retention of the components. I did go over with him; however, that if swuuu-tt-[id number] reaction were part of this issue, it may require a revision procedure and that would be something beyond my capability; hence, the followup with Dr. Mims for further evaluation and follow of his issues. All his questions were answered at the moment and we are making plans for potential irrigation and debridement surgery tomorrow. ALEX/SAGE EDGE: Emma TID: [id number]
[2021-03-31] MEDS ORDERED: ACETAMINOPHEN 325 MG TABLET. PO PRN (07:00)
[2021-03-31] MEDS ORDERED: MORPHINE SULFATE 2 MG/ML INJ. IVP PRN (07:30)
[2021-03-31] MEDS ORDERED: fentaNYL PF VIAL 100 MCG/2 ML VIAL IVP PRN (07:30)
[2021-03-31] MEDS ORDERED: PROCHLORPERAZINE 10 MG/2 ML VIAL. IVP PRN (07:30)
[2021-03-31] MEDS ORDERED: IV RINGERS,LACTATED 1000ML 1,000 ML IV SCH (07:30)
[2021-03-31] MEDS ORDERED: HYDROmorphone 2 MG/ML VIAL IVP PRN (07:30)
[2021-03-31] MEDS: PROPRANOLOL 40 MG TABLET. PO SCH (08:43)
[2021-03-31] MEDS: CITALOPRAM 20 MG TABLET. PO SCH (08:43)
[2021-03-31] MEDS: PANTOPRAZOLE 40 MG TABLET.DR. PO SCH (08:43)
[2021-03-31] MEDS: LEVOTHYROXINE 50 MCG TABLET PO SCH (08:43)
--- NOTE | 2021-03-31 09:19 | PDOC ---
Infectious Disease Note Vital Signs: Vital Signs Vital Signs Date Time Temp Pulse Resp B/P (MAP) Pulse Ox O2 Delivery O2 Flow Rate FiO2 03/31/21 08:45 18 Room Air 03/31/21 08:43 79 144/80 03/31/21 07:00 98.8 95 98.8 Medications: Inpatient Meds: Medications reviewed. Labs: Lab Laboratory Tests Test 03/30/21 15:17 Body Fluid Source Synovial Body Fluid Color Yellow Body Fluid Clarity Turbid Body Fluid Nucleated Cells 58542 /cmm (Not Body Fluid Mononuclear WBCs (%) 4 % Body Fluid Polymorphonuclear Cells 96 % Body Fluid Total RBCs Counted 83228 /cmm (Not Objective: Assessment: Possible right ANNIA prosthetic joint infection Leukocytosis DJD Plan: Plan of Care If patient has right ANNIA PJI I&D alone may not suffice Depending on the bacteria he may need explant of right hip arthroplasty Patient does not want to wait until culture results are back from synovial aspirate due to pain He wants to proceed with I&D as per recommendations from Dr. Porter Pros and cons discussed Obtain baseline labs here Follow synovial fluid cultures. Blood cultures negative from [facility] so far Hold Zosyn and start daptomycin until surgery which is scheduled this afternoon to increase the yield of intraoperative cultures Discussed with pharmacy Monitor labs and cultures ERICA SOTO MD Mar 31, 2021 09:19
--- NOTE | 2021-03-31 09:55 | NUR ---
SW following. Discussed with RN, pt from home, room air, NPO. I&D of right hip today. RN advised no SW needs at this time. SW will continue to follow.
[2021-03-31] MEDS ORDERED: fentaNYL PF VIAL 100 MCG/2 ML VIAL ONE ×2 (11:05→14:06)
[2021-03-31] MEDS ORDERED: fentaNYL PF VIAL 100 MCG/2 ML VIAL IVP ONE (11:15)
[2021-03-31] MEDS: fentaNYL PF VIAL 100 MCG/2 ML VIAL IVP PRN ×4 (11:21→14:26)
[2021-03-31 11:28] LABS: ALBUMIN 2.5 g/dL (3.4-5.0); ALBUMIN/GLOBULIN RATIO 0.6 (1.0-1.7); BASO % 0 % (0-3); CALCIUM 8.6 mg/dL (8.5-10.1); CREATININE 0.9 mg/dL (0.7-1.3); EOS # 0.1 x10^3/uL (0.0-0.7); EOS % 0 % (0-3); GFR 82.3; HEMATOCRIT 29.6 % (39.0-53.0); HEMOGLOBIN 10.3 g/dL (13.0-17.5); LYMPH # 0.7 x10^3/uL (1.0-4.8); LYMPH % 6 % (24-48); MEAN CORPUSCULAR HEMOGLOBIN 35 pg (25-35); MEAN CORPUSCULAR HGB CONC 35 g/dL (31-37); MEAN CORPUSCULAR VOLUME 101 fL (79-100); MONO # 1.1 x10^3/uL (0.0-1.1); MONO % 9 % (0-9); NEUT # 10.8 x10^3/uL (1.8-7.7); NEUT % 85 % (31-73); PLATELET COUNT 166 x10^3/uL (140-400); POTASSIUM 3.8 mmol/L (3.5-5.1); RED BLOOD COUNT 2.94 x10^6/uL (4.30-5.70); RED CELL DISTRIBUTION WIDTH 12.6 % (11.5-14.5); TOTAL BILIRUBIN 0.6 mg/dL (0.2-1.0); TOTAL PROTEIN 6.7 g/dL (6.4-8.2); URIC ACID 2.2 mg/dL (3.5-7.2); WHITE BLOOD COUNT 12.8 x10^3/uL (4.0-11.0)
--- NOTE | 2021-03-31 11:45 | PDOC ---
[employer] PROGRESS NOTE Date of Service DOS: DATE: 03/31/21 TIME: 11:41 Chief Complaint Chief Complaint Hip pain History of Present Illness History of Present Illness he patient is a pleasant 75-year-old male who presented to [facility] with hip pain. He states it woke him up screaming. They did some imaging confirming right hip septic arthritis. He has been transferred here for Orthopedic consultation and consultation with Dr. Terrazas of the Interventional Radiology service to have the hip drained. 03/31 Patient evaluated at bedside this morning. He underwent joint aspiration by interventional radiology yesterday. Planning for surgical intervention by orthopedics today. Infectious disease following. We will follow up after surgery Vitals/I&O Vitals/I&O: Vital Signs Date Time Temp Pulse Resp B/P (MAP) Pulse Ox O2 Delivery O2 Flow Rate FiO2 03/31/21 11:30 15 95 Room Air 03/31/21 11:24 98.8 70 124/68 98.8 I & O 03/30/21 03/30/21 03/31/21 15:00 23:00 07:00 Output Total 100 ml 450 ml Balance -100 ml -450 ml Physical Exam General: Alert, Oriented X3, Cooperative Heart: Regular rate, Normal S1, Normal S2 Lungs: Clear Abdomen: Normal bowel sounds, Soft, No tenderness Extremities: No edema, Normal pulses Skin: No significant lesion Labs Labs: Laboratory Tests Test 03/30/21 15:17 03/31/21 10:43 Body Fluid Source Synovial Body Fluid Color Yellow Body Fluid Clarity Turbid Body Fluid Nucleated Cells 44038 /cmm (Not Body Fluid Mononuclear WBCs (%) 4 % Body Fluid Polymorphonuclear Cells 96 % Body Fluid Total RBCs Counted 50977 /cmm (Not White Blood Count 12.8 x10^3/uL (4.0-11.0) Red Blood Count 2.94 x10^6/uL (4.30-5.70) Hemoglobin 10.3 g/dL (13.0-17.5) Hematocrit 29.6 % (39.0-53.0) Mean Corpuscular Volume 101 fL (79-100) Mean Corpuscular Hemoglobin 35 pg (25-35) Mean Corpuscular Hemoglobin Concent 35 g/dL (31-37) Red Cell Distribution Width 12.6 % (11.5-14.5) Platelet Count 166 x10^3/uL (140-400) Neutrophils (%) (Auto) 85 % (31-73) Lymphocytes (%) (Auto) 6 % (24-48) Monocytes (%) (Auto) 9 % (0-9) Eosinophils (%) (Auto) 0 % (0-3) Basophils (%) (Auto) 0 % (0-3) Neutrophils # (Auto) 10.8 x10^3/uL (1.8-7.7) Lymphocytes # (Auto) 0.7 x10^3/uL (1.0-4.8) Monocytes # (Auto) 1.1 x10^3/uL (0.0-1.1) Eosinophils # (Auto) 0.1 x10^3/uL (0.0-0.7) Basophils # (Auto) 0.0 x10^3/uL (0.0-0.2) Sodium Level 135 mmol/L (136-145) Potassium Level 3.8 mmol/L (3.5-5.1) Chloride Level 99 mmol/L (98-107) Carbon Dioxide Level 30 mmol/L (21-32) Anion Gap 6 (6-14) Blood Urea Nitrogen 20 mg/dL (8-26) Creatinine 0.9 mg/dL (0.7-1.3) Estimated GFR (Cockcroft-Gault) 82.3 BUN/Creatinine Ratio 22 (6-20) Glucose Level 111 mg/dL (70-99) Uric Acid 2.2 mg/dL (3.5-7.2) Calcium Level 8.6 mg/dL (8.5-10.1) Total Bilirubin 0.6 mg/dL (0.2-1.0) Aspartate Amino Transf (AST/SGOT) 20 U/L (15-37) Alanine Aminotransferase (ALT/SGPT) 33 U/L (16-63) Alkaline Phosphatase 110 U/L (46-116) Creatine Kinase 149 U/L (39-308) Total Protein 6.7 g/dL (6.4-8.2) Albumin 2.5 g/dL (3.4-5.0) Albumin/Globulin Ratio 0.6 (1.0-1.7) Assessment and Plan Assessmemt and Plan Right hip septic arthritis. Orthopedics and interventional radiology consulted. IR performed joint aspiration, explaining for I&D today. Patient initially started on Zosyn switched to daptomycin by infectious disease N.p.o. Resume diet after surgery Comment Review of Relevant I have reviewed the following items ganesh (where applicable) has been applied. Medications: Current Medications Medications (Trade) Dose Ordered Sig/Xiao Route PRN Reason Start Time Stop Time Status Last Admin Dose Admin Morphine Sulfate (Morphine Sulfate) 2 mg PRN Q2HR PRN IVP PAIN 03/30/21 13:45 03/31/21 08:45 Piperacillin Sod/ Tazobactam Sod 4.5 gm/Sodium Chloride 100 ml @ 200 mls/hr Q6HRS IV 03/30/21 15:00 03/31/21 05:39 Lidocaine HCl (Buffered Lidocaine 1%) 3 ml 1X ONCE INJ 03/30/21 14:45 03/30/21 14:46 DC 03/30/21 14:45 Citalopram Hydrobromide (CeleXA) 20 mg DAILY PO 03/31/21 09:00 03/31/21 08:43 Levothyroxine Sodium (Synthroid) 50 mcg DAILY07 PO 03/31/21 07:00 03/31/21 08:43 Pantoprazole Sodium (Protonix) 40 mg DAILYAC PO 03/31/21 07:30 03/31/21 08:43 Propranolol HCl (Inderal) 80 mg DAILY PO 03/31/21 09:00 03/31/21 08:43 Fentanyl Citrate (Fentanyl 2ml Vial) 50 mcg PRN Q5MIN PRN IVP MODERATE PAIN 4-6 03/31/21 07:30 04/01/21 07:29 03/31/21 11:30 Ringer's Solution 1,000 ml @ 30 mls/hr Q24H IV 03/31/21 07:30 03/31/21 19:29 03/31/21 08:48 Justifications for Admission Other Justification MAGDA UMANA MD Mar 31, 2021 11:45
[2021-03-31] MEDS ORDERED: PHENYLEPHRINE in 0.9% NACL PF 1 MG/10 ML SYRINGE. IV ONE (12:45)
[2021-03-31] MEDS ORDERED: PROPOFOL 50 ML IV ONE (12:45)
[2021-03-31] MEDS ORDERED: LIDOCAINE 2% PF 5 ML VIAL. ONE (12:45)
[2021-03-31] MEDS ORDERED: DEXAMETHASONE SOD PHOS 4 MG/ML VIAL ONE (13:38)
[2021-03-31] MEDS ORDERED: ONDANSETRON PF 4 MG/2 ML VIAL. ONE (13:38)
[2021-03-31] MEDS: DAPTOmycin (GENERIC) IVPB 530 MG in IV NORMAL SALINE 50ML 50 ML IV SCH (14:53)
--- NOTE | 2021-03-31 15:15 | CONS ---
DATE OF CONSULTATION: 03/31/2021 REFERRING PHYSICIAN: Loren Harris DO. REASON FOR CONSULTATION: Right hip septic arthritis. HISTORY OF PRESENT ILLNESS: A 75-year-old male who presented to [facility] with sudden onset of right hip pain, which woke him up from sleep. He was screaming. He could not tolerate the pain. The patient was transferred to [facility] yesterday for orthopedic consultation. The patient had a history of bilateral hip replacement, right in 2002, did well and left in 2003. Subsequently, had to have revision surgery because of loosening, not infection in 2005 at [facility] by revision specialist. The patient had subjective fevers and chills. He underwent IR drainage of the right hip, which showed 85,000 nucleated cells, 18,000 total RBC with 96% polymorphonuclear cells. Crystals are not available. White count at [facility] was 18,000. CRP of 132.2. COVID was negative. Blood cultures done are negative so far. X-ray showed bilateral hip arthroplasty, no acute osseous abnormality. The patient was seen by Dr. Porter. Plans are for I and D of the right hip today and depending on findings, plans are for possible explantation of the hardware at [facility] by his surgeon, Dr. Swanson ____ orthopedist. The patient was started on Zosyn. ID consultation has been requested for antibiotic management. PAST MEDICAL HISTORY: DJD, bilateral hip replacement, left shoulder surgery, elbow surgery, history of alcohol dependence, hypothyroidism. REVIEW OF SYSTEMS: Negative except for above in HPI. The patient did have recent tooth extraction last Monday, but no other complaints. No complaints. No shortness of breath, cough, chest pain, headache, rash, nausea, vomiting, diarrhea or abdominal pain. Denies being on any antibiotics prior to hospitalization. Otherwise, negative as per above. CURRENT MEDICATIONS: Zosyn. Other medications reviewed in medication list. PAST SURGICAL HISTORY: As per HPI. ALLERGIES: No known drug allergies. SOCIAL HISTORY: Retired from [employer]. , lives with . Denies smoking or ETOH, though there is history of ETOH in the chart in the past. PHYSICAL EXAMINATION: VITAL SIGNS: T-max 100, otherwise stable. GENERAL: Alert, oriented x 3 male, lying in bed comfortably, in no acute distress, talking on phone. HEENT: Normocephalic, atraumatic. Anicteric. Dentition fair. No thrush. NECK: Supple, no JVD. LUNGS: Clear bilaterally. No wheezing. HEART: S1, S2. No gallops or murmurs. ABDOMEN: Soft, nontender, nondistended, no rebound, no guarding. EXTREMITIES: Right hip, no overlying redness, no effusion. Tender with movement. Left hip arthroplasty site looks okay. Left shoulder arthroplasty site looks okay. No other joint effusion or decrease in range of motion noted. CENTRAL NERVOUS SYSTEM: Alert and oriented x 3, grossly nonfocal. PSYCHIATRIC: Calm and cooperative. DERMATOLOGIC: Warm, dry, no generalized rash. LABORATORY DATA: WBC at [facility] was 18,000. CRP of 132.2. COVID negative. Blood cultures negative. Synovial fluid here shows 85,000 nucleated cells, 18,000 RBCs, 96% PMNs, 4 mononuclear cells. MICRO: Blood culture at [facility] negative. Aerobic culture from 03/30 pending at this time. IMAGING: None here. The patient underwent a fluoroscopic-guided aspiration, which showed a 10 mL cloudy suspected purulent material aspirated from the joint space. IMPRESSION: 1. Possible right total hip arthroplasty status post synovial aspirate 921 with WBC count of 85,000. Synovial aspirate cultures pending at this time. Plans are for I&D by Dr. Porter today 2. Right hip pain. 3. Leukocytosis. 4. Subjective fevers and chills. 5. History of degenerative joint disease. 6. Gastroesophageal reflux disease. 7. Hypothyroidism. RECOMMENDATIONS: 1. The patient is awaiting I and D by Dr. Porter which is planned later today. 2. Synovial aspirate cultures are pending at this time. 3. Depending on the cultures, the patient may need explantation, which he has been recommended to get at [facility] by revision specialist. 4. The patient does not want to hold off on I and D today . He does understand that depending on the culture data and intraoperative findings, he may need explantation of the right ANNIA. The patient is agreeable to undergo 2 surgeries if needed. 5. Continue Zosyn though hold dose until planned surgery later today. 6. We will add daptomycin, hold dose until planned surgery later today. 7. We will obtain CBC, CMP, ESR, CRP and add crystals to synovial fluid aspirate. 8. Monitor labs and cultures including synovial aspirate cultures and intraoperative cultures. 9. Continue supportive care. 10. Continue wound management as per Orthopedics. Thank you, Dr. Harris, for consulting Infectious Disease to participate in this patient's care. HUA/MACARIO DR: Arun TID: [id number] MTDD
--- NOTE | 2021-03-31 18:49 | PDOC4 ---
Operative Note Operative Note Date of surgery: 03/31/2021 Preoperative diagnosis: Suspected septic right total hip arthroplasty and concern for potential sequela of [id number] hip arthroplasty reaction Postoperative diagnosis: Septic right total hip arthroplasty, no loosening of hip implant Operative procedure: Irrigation debridement of right septic total hip arthroplasty Surgeon: German Trimming Operator: Michelle yañez assist Anesthesia: General Estimated blood loss: 50 cc Complications: None Operative indications: Please see my dictated orthopedic consultation for detailed operative indications and note that we specifically discussed the initial concern for a possible septic hip joint based on the aspirate results and the additional complicating factor of a wksht-te-awygk prosthesis which can cause localized inflammatory reaction to the metal wear products. I specifically covered with him that I had spoken with Dr. Lay of the [facility] where he originally had his hip replaced with Dr. Swanson and that they had a fellowship trained revision specialist Dr. Mims who could potentially see h im. I discussed with the patient and the [facility] physicians a desire to avoid delay in treatment of what was likely a septic hip arthroplasty with a referral type process, however that it may be necessary if he needs additional services such as explantation or revision due to ongoing infection or other factors that the services of a revision specialist would be desirable and they and the patient agreed that the initial irrigation debridement procedure would be performed promptly here and any further necessary follow-up with Dr. Mims. Patient understands specifically the possibility of failure of cleaning out the area and attempting to retain the hardware due to the suspected short-term nature of the onset of his symptoms approximately 3 days ago and a possible offending procedure of multiple tooth extractions 1 week ago. He agrees to proceed with surgical evaluation and treatment having given informed consent Operative text: Patient was identified procedure verified patient placed in the supine position on the operating table. After adequate amounts of general anesthesia were administered he was placed in the decubitus position right side up all bony prominences were well-padded and the right hip was prepped and draped in the standard sterile fashion. After timeout was performed patient procedure identified and verified a curvilinear incision was made along the site of the previous posterior approach to the hip. Iliotibial band and gluteal fibers were split in line and a Charnley retractor was placed. Posterior hip capsule was divided in a T fashion and the joint accessed and immediate onset of cloudy fluid really bordering on purulent nature fluid was obtained. I did not separately obtain cultures as patient was aspirated yesterday under radiologic g uidance and had received antibiotics in the interim. With the capsule retracted and open, the neck head and her face was examined and found to be intact no loosening noted at the acetabular or femoral components grossly nor was there any instability. Debridement was carried out of the capsular area with rongeurs sharply and thorough irrigation carried out with bactisure irrigation a total of 1 L followed by 3 L of normal saline solution using pulse lavage. Bleeding points were controlled by electrocautery and fascia closure accomplished with #1 PDS strata fix suture subcutaneous closure with buried PDS suture skin closure with leopoldo sterile dressings were applied patient was returned to recovery room in stable condition having tolerated procedure well. Michelle yañez assist was present for the procedure and assisted in patient positioning prepping draping retraction and closure. HANNA ALVARADO MD Mar 31, 2021 18:49
[2021-04-01] MEDS: PIPERACILLIN/TAZOBACTAM 4.5 GM in IV NORMAL SALINE 100ML 100 ML IV SCH ×5 (00:01→23:59)
[2021-04-01 02:38] VITALS: BP 133/73
[2021-04-01 07:00] VITALS: BP 147/76
--- NOTE | 2021-04-01 08:32 | PDOC ---
Infectious Disease Note Subjective: Subjective Patient feels better today Just has incisional right hip pain Right lower extremity pain otherwise has improved since surgery No fever, nausea, vomiting, shortness of breath, cough, diarrhea, abdominal pain Vital Signs: Vital Signs Vital Signs Date Time Temp Pulse Resp B/P (MAP) Pulse Ox O2 Delivery O2 Flow Rate FiO2 04/01/21 07:27 Room Air 04/01/21 07:00 97.9 65 20 147/76 (99) 97 97.9 04/01/21 02:38 2.0 Physical Exam: PHYSICAL EXAM GENERAL: Alert, oriented x 3 male, lying in bed comfortably, in no acute distress, talking on phone. HEENT: Normocephalic, atraumatic. Anicteric. Dentition fair. No thrush. NECK: Supple, no JVD. LUNGS: Clear bilaterally. No wheezing. HEART: S1, S2. No gallops or murmurs. ABDOMEN: Soft, nontender, nondistended, no rebound, no guarding. EXTREMITIES: Right thigh dressing intact dry not taken down. Left hip arthroplasty site looks okay. Left shoulder arthroplasty site looks okay. No other joint effusion or decrease in range of motion noted. CENTRAL NERVOUS SYSTEM: Alert and oriented x 3, grossly nonfocal. PSYCHIATRIC: Calm and cooperative. DERMATOLOGIC: Warm, dry, no generalized rash. Medications: Inpatient Meds: Medications reviewed. Labs: Lab Laboratory Tests Test 03/31/21 10:43 White Blood Count 12.8 x10^3/uL (4.0-11.0) Red Blood Count 2.94 x10^6/uL (4.30-5.70) Hemoglobin 10.3 g/dL (13.0-17.5) Hematocrit 29.6 % (39.0-53.0) Mean Corpuscular Volume 101 fL (79-100) Mean Corpuscular Hemoglobin 35 pg (25-35) Mean Corpuscular Hemoglobin Concent 35 g/dL (31-37) Red Cell Distribution Width 12.6 % (11.5-14.5) Platelet Count 166 x10^3/uL (140-400) Neutrophils (%) (Auto) 85 % (31-73) Lymphocytes (%) (Auto) 6 % (24-48) Monocytes (%) (Auto) 9 % (0-9) Eosinophils (%) (Auto) 0 % (0-3) Basophils (%) (Auto) 0 % (0-3) Neutrophils # (Auto) 10.8 x10^3/uL (1.8-7.7) Lymphocytes # (Auto) 0.7 x10^3/uL (1.0-4.8) Monocytes # (Auto) 1.1 x10^3/uL (0.0-1.1) Eosinophils # (Auto) 0.1 x10^3/uL (0.0-0.7) Basophils # (Auto) 0.0 x10^3/uL (0.0-0.2) Erythrocyte Sedimentation Rate > 130 (0-15) Sodium Level 135 mmol/L (136-145) Potassium Level 3.8 mmol/L (3.5-5.1) Chloride Level 99 mmol/L (98-107) Carbon Dioxide Level 30 mmol/L (21-32) Anion Gap 6 (6-14) Blood Urea Nitrogen 20 mg/dL (8-26) Creatinine 0.9 mg/dL (0.7-1.3) Estimated GFR (Cockcroft-Gault) 82.3 BUN/Creatinine Ratio 22 (6-20) Glucose Level 111 mg/dL (70-99) Uric Acid 2.2 mg/dL (3.5-7.2) Calcium Level 8.6 mg/dL (8.5-10.1) Total Bilirubin 0.6 mg/dL (0.2-1.0) Aspartate Amino Transf (AST/SGOT) 20 U/L (15-37) Alanine Aminotransferase (ALT/SGPT) 33 U/L (16-63) Alkaline Phosphatase 110 U/L (46-116) Creatine Kinase 149 U/L (39-308) Total Protein 6.7 g/dL (6.4-8.2) Albumin 2.5 g/dL (3.4-5.0) Albumin/Globulin Ratio 0.6 (1.0-1.7) Objective: Assessment: 1. Possible right total hip arthroplasty status post synovial aspirate with WBC count of 85,000. Synovial aspirate cultures pending at this time. Status post I&D March 31 with cloudy fluid Gram stain GPC's, cultures pending at this time 2. Right ANNIA 2002 right hip pain. From above. 3. Leukocytosis. Improving 4. Subjective fevers and chills. Resolved 5. History of degenerative joint disease. 6. Gastroesophageal reflux disease. 7. Hypothyroidism. 8. Left ANNIA with revision arthroplasty last one in 2005 Plan: Plan of Care Continue Zosyn and daptomycin Synovial fluid aspirate and intraoperative cultures are pending at this time Monitor labs and cultures including blood cultures at [facility] Continue supportive care. Continue wound management as directed pT and OT as tolerated ERICA SOTO MD Apr 01, 2021 08:32
[2021-04-01] MEDS: LEVOTHYROXINE 50 MCG TABLET PO SCH (08:47)
[2021-04-01] MEDS: PROPRANOLOL 40 MG TABLET. PO SCH (08:47)
[2021-04-01] MEDS: PANTOPRAZOLE 40 MG TABLET.DR. PO SCH (08:47)
[2021-04-01] MEDS: CITALOPRAM 20 MG TABLET. PO SCH (08:47)
[2021-04-01 10:36] VITALS: BP 107/56
--- NOTE | 2021-04-01 10:43 | PDOC ---
[employer] PROGRESS NOTE Date of Service DOS: DATE: 04/01/21 TIME: 10:34 Chief Complaint Chief Complaint Hip pain History of Present Illness History of Present Illness he patient is a pleasant 75-year-old male who presented to [facility] with hip pain. He states it woke him up screaming. They did some imaging confirming right hip septic arthritis. He has been transferred here for Orthopedic consultation and consultation with Dr. Terrazas of the Interventional Radiology service to have the hip drained. 03/31 Patient evaluated at bedside this morning. He underwent joint aspiration by interventional radiology yesterday. Planning for surgical intervention by orthopedics today. Infectious disease following. We will follow up after surgery 04/01 Patient evaluated bedside this morning. Underwent surgical intervention yesterday. Currently on daptomycin zosyn per ID. Initial Gram stain from hip aspiration showing gram-positive cocci. Await further culture results. PT OT per Vitals/I&O Vitals/I&O: Vital Signs Date Time Temp Pulse Resp B/P (MAP) Pulse Ox O2 Delivery O2 Flow Rate FiO2 04/01/21 08:47 65 147/76 04/01/21 07:27 Room Air 04/01/21 07:00 97.9 20 97 97.9 04/01/21 02:38 2.0 I & O 03/31/21 03/31/21 04/01/21 14:59 22:59 06:59 Intake Total 1250 ml 350 ml 400 ml Output Total 275 ml 250 ml 400 ml Balance 975 ml 100 ml 0 ml Physical Exam Physical Exam: GENERAL: Alert, oriented x 3 male, lying in bed comfortably, in no acute distress, talking on phone. HEENT: Normocephalic, atraumatic. Anicteric. Dentition fair. No thrush. NECK: Supple, no JVD. LUNGS: Clear bilaterally. No wheezing. HEART: S1, S2. No gallops or murmurs. ABDOMEN: Soft, nontender, nondistended, no rebound, no guarding. EXTREMITIES: Right thigh dressing intact dry not taken down. Left hip arthroplasty site looks okay. Left shoulder arthroplasty site looks okay. No other joint effusion or decrease in range of motion noted. CENTRAL NERVOUS SYSTEM: Alert and oriented x 3, grossly nonfocal. PSYCHIATRIC: Calm and cooperative. DERMATOLOGIC: Warm, dry, no generalized rash. General: Alert, Oriented X3, Cooperative Heart: Regular rate, Normal S1, Normal S2 Lungs: Clear Abdomen: Normal bowel sounds, Soft, No tenderness Extremities: No edema, Normal pulses Skin: No significant lesion Labs Labs: Laboratory Tests Test 03/31/21 10:43 White Blood Count 12.8 x10^3/uL (4.0-11.0) Red Blood Count 2.94 x10^6/uL (4.30-5.70) Hemoglobin 10.3 g/dL (13.0-17.5) Hematocrit 29.6 % (39.0-53.0) Mean Corpuscular Volume 101 fL (79-100) Mean Corpuscular Hemoglobin 35 pg (25-35) Mean Corpuscular Hemoglobin Concent 35 g/dL (31-37) Red Cell Distribution Width 12.6 % (11.5-14.5) Platelet Count 166 x10^3/uL (140-400) Neutrophils (%) (Auto) 85 % (31-73) Lymphocytes (%) (Auto) 6 % (24-48) Monocytes (%) (Auto) 9 % (0-9) Eosinophils (%) (Auto) 0 % (0-3) Basophils (%) (Auto) 0 % (0-3) Neutrophils # (Auto) 10.8 x10^3/uL (1.8-7.7) Lymphocytes # (Auto) 0.7 x10^3/uL (1.0-4.8) Monocytes # (Auto) 1.1 x10^3/uL (0.0-1.1) Eosinophils # (Auto) 0.1 x10^3/uL (0.0-0.7) Basophils # (Auto) 0.0 x10^3/uL (0.0-0.2) Erythrocyte Sedimentation Rate > 130 (0-15) Sodium Level 135 mmol/L (136-145) Potassium Level 3.8 mmol/L (3.5-5.1) Chloride Level 99 mmol/L (98-107) Carbon Dioxide Level 30 mmol/L (21-32) Anion Gap 6 (6-14) Blood Urea Nitrogen 20 mg/dL (8-26) Creatinine 0.9 mg/dL (0.7-1.3) Estimated GFR (Cockcroft-Gault) 82.3 BUN/Creatinine Ratio 22 (6-20) Glucose Level 111 mg/dL (70-99) Uric Acid 2.2 mg/dL (3.5-7.2) Calcium Level 8.6 mg/dL (8.5-10.1) Total Bilirubin 0.6 mg/dL (0.2-1.0) Aspartate Amino Transf (AST/SGOT) 20 U/L (15-37) Alanine Aminotransferase (ALT/SGPT) 33 U/L (16-63) Alkaline Phosphatase 110 U/L (46-116) Creatine Kinase 149 U/L (39-308) Total Protein 6.7 g/dL (6.4-8.2) Albumin 2.5 g/dL (3.4-5.0) Albumin/Globulin Ratio 0.6 (1.0-1.7) Comment Review of Relevant I have reviewed the following items ganesh (where applicable) has been applied. Medications: Current Medications Medications (Trade) Dose Ordered Sig/Xiao Route PRN Reason Start Time Stop Time Status Last Admin Dose Admin Daptomycin 530 mg/ Sodium Chloride 50 ml @ 100 mls/hr Q24H IV 03/31/21 15:00 03/31/21 14:53 Justifications for Admission Other Justification MAGDA UMANA MD Apr 01, 2021 10:43
[2021-04-01] MEDS: MORPHINE SULFATE 2 MG/ML INJ. IVP PRN ×4 (10:45→23:59)
[2021-04-01 14:37] VITALS: BP 107/77
[2021-04-01] MEDS: DAPTOmycin (GENERIC) IVPB 530 MG in IV NORMAL SALINE 50ML 50 ML IV SCH (16:14)
[2021-04-01 19:15] VITALS: BP 124/58
[2021-04-01] MEDS: LACTOBACILLUS RHAMNOSUS GG 1 CAPSULE. PO SCH (20:56)
[2021-04-01 23:06] VITALS: BP 127/68
[2021-04-02 03:26] VITALS: BP 118/63
[2021-04-02] MEDS: PIPERACILLIN/TAZOBACTAM 4.5 GM in IV NORMAL SALINE 100ML 100 ML IV SCH ×3 (06:13→17:13)
[2021-04-02] MEDS: LEVOTHYROXINE 50 MCG TABLET PO SCH (06:14)
[2021-04-02] MEDS: MORPHINE SULFATE 2 MG/ML INJ. IVP PRN ×4 (06:16→22:33)
[2021-04-02 07:00] VITALS: BP 132/70
--- NOTE | 2021-04-02 07:27 | PDOC ---
PROGRESS NOTES Date of Service DATE: 04/02/21 TIME: 07:25 Subjective Subjective Problems overnight: Reports that hip pain decreased immediately after surgery but does have the postsurgical muscular type pain Objective Vital Signs Vital Signs Date Time Temp Pulse Resp B/P (MAP) Pulse Ox O2 Delivery O2 Flow Rate FiO2 04/02/21 06:46 20 Nasal Cannula 2.0 04/02/21 03:26 98.4 65 118/63 (81) 93 98.4 Physical Exam Right hip dressing with some slight bloody drainage distal neurovascular status intact Labs Laboratory Tests Test 03/31/21 10:43 White Blood Count 12.8 x10^3/uL (4.0-11.0) Red Blood Count 2.94 x10^6/uL (4.30-5.70) Hemoglobin 10.3 g/dL (13.0-17.5) Hematocrit 29.6 % (39.0-53.0) Mean Corpuscular Volume 101 fL (79-100) Mean Corpuscular Hemoglobin 35 pg (25-35) Mean Corpuscular Hemoglobin Concent 35 g/dL (31-37) Red Cell Distribution Width 12.6 % (11.5-14.5) Platelet Count 166 x10^3/uL (140-400) Neutrophils (%) (Auto) 85 % (31-73) Lymphocytes (%) (Auto) 6 % (24-48) Monocytes (%) (Auto) 9 % (0-9) Eosinophils (%) (Auto) 0 % (0-3) Basophils (%) (Auto) 0 % (0-3) Neutrophils # (Auto) 10.8 x10^3/uL (1.8-7.7) Lymphocytes # (Auto) 0.7 x10^3/uL (1.0-4.8) Monocytes # (Auto) 1.1 x10^3/uL (0.0-1.1) Eosinophils # (Auto) 0.1 x10^3/uL (0.0-0.7) Basophils # (Auto) 0.0 x10^3/uL (0.0-0.2) Erythrocyte Sedimentation Rate > 130 (0-15) Sodium Level 135 mmol/L (136-145) Potassium Level 3.8 mmol/L (3.5-5.1) Chloride Level 99 mmol/L (98-107) Carbon Dioxide Level 30 mmol/L (21-32) Anion Gap 6 (6-14) Blood Urea Nitrogen 20 mg/dL (8-26) Creatinine 0.9 mg/dL (0.7-1.3) Estimated GFR (Cockcroft-Gault) 82.3 BUN/Creatinine Ratio 22 (6-20) Glucose Level 111 mg/dL (70-99) Uric Acid 2.2 mg/dL (3.5-7.2) Calcium Level 8.6 mg/dL (8.5-10.1) Total Bilirubin 0.6 mg/dL (0.2-1.0) Aspartate Amino Transf (AST/SGOT) 20 U/L (15-37) Alanine Aminotransferase (ALT/SGPT) 33 U/L (16-63) Alkaline Phosphatase 110 U/L (46-116) Creatine Kinase 149 U/L (39-308) Total Protein 6.7 g/dL (6.4-8.2) Albumin 2.5 g/dL (3.4-5.0) Albumin/Globulin Ratio 0.6 (1.0-1.7) Assessment Assessment POD#irrigation debridement of right total hip joint septic hip Plan Plan of Care Current culture results show gram-positive cocci with no definitive ID Continue empiric antibiotics likely transitioning based on culture results to a 6-week course of IV antibiotics Ongoing treatment and follow-up by Dr. Mims at [facility] Justicifation of Admission Dx: Justifications for Admission: Justification of Admission Dx: N/A HANNA ALVARADO MD Apr 02, 2021 07:27
[2021-04-02] MEDS: LACTOBACILLUS RHAMNOSUS GG 1 CAPSULE. PO SCH ×2 (08:10→22:33)
[2021-04-02] MEDS: CITALOPRAM 20 MG TABLET. PO SCH (08:10)
[2021-04-02] MEDS: PANTOPRAZOLE 40 MG TABLET.DR. PO SCH (08:10)
[2021-04-02] MEDS: PROPRANOLOL 40 MG TABLET. PO SCH (08:10)
--- NOTE | 2021-04-02 09:21 | PDOC ---
Infectious Disease Note Subjective: Subjective Patient has postop site pain No fever, nausea, vomiting, shortness of breath, cough, diarrhea, abdominal pain Vital Signs: Vital Signs Vital Signs Date Time Temp Pulse Resp B/P (MAP) Pulse Ox O2 Delivery O2 Flow Rate FiO2 04/02/21 08:10 60 132/70 04/02/21 07:25 Room Air 04/02/21 07:00 98.6 20 95 98.6 04/02/21 06:46 2.0 Physical Exam: PHYSICAL EXAM GENERAL: Alert, oriented x 3 male, lying in bed comfortably, in no acute distress, talking on phone. HEENT: Normocephalic, atraumatic. Anicteric. Dentition fair. No thrush. NECK: Supple, no JVD. LUNGS: Clear bilaterally. No wheezing. HEART: S1, S2. No gallops or murmurs. ABDOMEN: Soft, nontender, nondistended, no rebound, no guarding. EXTREMITIES: Right thigh dressing intact dry not taken down. Left hip arthroplasty site looks okay. Left shoulder arthroplasty site looks okay. No other joint effusion or decrease in range of motion noted. CENTRAL NERVOUS SYSTEM: Alert and oriented x 3, grossly nonfocal. PSYCHIATRIC: Calm and cooperative. DERMATOLOGIC: Warm, dry, no generalized rash. Medications: Inpatient Meds: Medications reviewed. Objective: Assessment: Gram-positive bacteremia 4 out of 4 bottles at [facility] present on admission 03/30/2021 Right total hip arthroplasty status post synovial aspirate , on 03/30 with WBC count of 85,000. Synovial aspirate cultures pending at this time. Status post I&D March 31 with cloudy fluid Gram stain GPC's, cultures pending at this time 2. Right ANNIA 2003 right hip pain. From above. 3. Leukocytosis. Improving 4. Subjective fevers and chills. Resolved 5. History of degenerative joint disease. 6. Gastroesophageal reflux disease. 7. Hypothyroidism. 8. 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 History of recent tooth extraction 1 week prior to admission Plan: Plan of Care Continue Zosyn and daptomycin Synovial fluid aspirate and intraoperative cultures are pending at this time Monitor labs and cultures Follow-up blood culture results from [facility] 03/30/2021 Chuck blood cultures April 02, 2021 Continue supportive care. Continue wound management as directed pT and OT as tolerated Avoid placing PICC line until repeat blood cultures are negative for 48 to 72 hours Discussed with nursing staff ERICA SOTO MD Apr 02, 2021 09:21
[2021-04-02] MEDS: POLYETHYLENE GLYCOL 3350 17 GM PACKET. PO SCH (10:11)
[2021-04-02] MEDS: SENNOSIDES/DOCUSATE 8.6/50MG TABLET. PO SCH ×2 (10:11→22:33)
--- NOTE | 2021-04-02 10:20 | NUR ---
SW following. Discussed with RN, pt from home, room air. Pt had surgery on 03/31. Currently on IV abx, more cultures obtained due to positive blood cultures. Therapy recommending home health. Pt not ready for discharge today. SW will continue to follow.
[2021-04-02 10:32] VITALS: BP 118/58
--- NOTE | 2021-04-02 11:41 | PDOC ---
[employer] PROGRESS NOTE Date of Service DOS: DATE: 04/02/21 TIME: 11:40 Chief Complaint Chief Complaint Hip pain History of Present Illness History of Present Illness he patient is a pleasant 75-year-old male who presented to [facility] with hip pain. He states it woke him up screaming. They did some imaging confirming right hip septic arthritis. He has been transferred here for Orthopedic consultation and consultation with Dr. Terrazas of the Interventional Radiology service to have the hip drained. 03/31 Patient evaluated at bedside this morning. He underwent joint aspiration by interventional radiology yesterday. Planning for surgical intervention by orthopedics today. Infectious disease following. We will follow up after surgery 04/01 Patient evaluated bedside this morning. Underwent surgical intervention yesterday. Currently on daptomycin zosyn per ID. Initial Gram stain from hip aspiration showing gram-positive cocci. Await further culture results. PT OT per 04/02 Evaluated at bedside. Complaining of some incisional pain otherwise doing well. Hospitalist contacted by [facility] that there cultures were positive infectious disease aware. Repeat cultures today continue antibiotics. Vitals/I&O Vitals/I&O: Vital Signs Date Time Temp Pulse Resp B/P (MAP) Pulse Ox O2 Delivery O2 Flow Rate FiO2 04/02/21 10:32 98.0 58 20 118/58 (78) 97 Room Air 98.0 04/02/21 06:46 2.0 I & O 04/01/21 04/01/21 04/02/21 15:00 23:00 07:00 Intake Total 120 ml 240 ml 480 ml Output Total 150 ml 850 ml Balance 120 ml 90 ml -370 ml Physical Exam Physical Exam: GENERAL: Alert, oriented x 3 male, lying in bed comfortably, in no acute distress, talking on phone. HEENT: Normocephalic, atraumatic. Anicteric. Dentition fair. No thrush. NECK: Supple, no JVD. LUNGS: Clear bilaterally. No wheezing. HEART: S1, S2. No gallops or murmurs. ABDOMEN: Soft, nontender, nondistended, no rebound, no guarding. EXTREMITIES: Right thigh dressing intact dry not taken down. Left hip arthroplasty site looks okay. Left shoulder arthroplasty site looks okay. No other joint effusion or decrease in range of motion noted. CENTRAL NERVOUS SYSTEM: Alert and oriented x 3, grossly nonfocal. PSYCHIATRIC: Calm and cooperative. DERMATOLOGIC: Warm, dry, no generalized rash. General: Alert, Oriented X3, Cooperative Heart: Regular rate, Normal S1, Normal S2 Lungs: Clear Abdomen: Normal bowel sounds, Soft, No tenderness Extremities: No edema, Normal pulses Skin: No significant lesion Assessment and Plan Assessmemt and Plan Severe Malnutrition Septic Arthritis Comment Review of Relevant I have reviewed the following items ganesh (where applicable) has been applied. Medications: Current Medications Medications (Trade) Dose Ordered Sig/Xiao Route PRN Reason Start Time Stop Time Status Last Admin Dose Admin Lactobacillus Rhamnosus (Culturelle) 1 cap BID PO 04/01/21 21:00 04/02/21 08:10 Polyethylene Glycol (miraLAX PACKET) 17 gm DAILY PO 04/02/21 10:00 04/02/21 10:11 Senna/Docusate Sodium (Senna Plus) 1 tab BID PO 04/02/21 10:00 04/02/21 10:11 Justifications for Admission Other Justification MAGDA UMANA MD Apr 02, 2021 11:41
[2021-04-02 15:00] VITALS: BP 125/82
[2021-04-02] MEDS: DAPTOmycin (GENERIC) IVPB 530 MG in IV NORMAL SALINE 50ML 50 ML IV SCH (15:34)
--- NOTE | 2021-04-02 18:10 | NUR ---
Arrived to unit by w/c accompanied staff and . Oriented to room and controls. Side rails up x's 2 with call light. No c/o at this time. Cont. monitor.
[2021-04-02 19:00] VITALS: BP 141/78
[2021-04-02 23:00] VITALS: BP 153/71
[2021-04-03] MEDS: oxyCODONE/APAP 10/325 1 TAB TABLET PO PRN ×4 (00:23→20:04)
[2021-04-03] MEDS: PIPERACILLIN/TAZOBACTAM 4.5 GM in IV NORMAL SALINE 100ML 100 ML IV SCH ×4 (00:23→17:33)
[2021-04-03 03:00] VITALS: BP 142/71
[2021-04-03] MEDS: MORPHINE SULFATE 2 MG/ML INJ. IVP PRN ×3 (06:28→17:33)
[2021-04-03] MEDS: LEVOTHYROXINE 50 MCG TABLET PO SCH (06:29)
[2021-04-03 07:00] VITALS: BP 147/76
[2021-04-03] MEDS: PANTOPRAZOLE 40 MG TABLET.DR. PO SCH (08:40)
[2021-04-03] MEDS: CITALOPRAM 20 MG TABLET. PO SCH (08:40)
[2021-04-03] MEDS: SENNOSIDES/DOCUSATE 8.6/50MG TABLET. PO SCH ×2 (08:40→20:04)
[2021-04-03] MEDS: LACTOBACILLUS RHAMNOSUS GG 1 CAPSULE. PO SCH ×2 (08:40→20:05)
[2021-04-03] MEDS: PROPRANOLOL 40 MG TABLET. PO SCH (08:41)
[2021-04-03] MEDS: POLYETHYLENE GLYCOL 3350 17 GM PACKET. PO SCH (08:41)
--- NOTE | 2021-04-03 11:00 | PDOC ---
[employer] PROGRESS NOTE Date of Service DOS: DATE: 04/03/21 TIME: 10:53 Chief Complaint Chief Complaint Streptococcus bacteremia Septic arthritis with aspirate done on 03/30/2021 History of right ANNIA 2002 History of GERD History of hypothyroidism History of left ANNIA with revision arthroplasty in 2005 Continued IV antibiotics Pending blood culture sensitivities Continue PT OT modalities IV pain control History of Present Illness History of Present Illness he patient is a pleasant 75-year-old male who presented to [facility] with hip pain. He states it woke him up screaming. They did some imaging confirming right hip septic arthritis. He has been transferred here for Orthopedic consultation and consultation with Dr. Terrazas of the Interventional Radiology service to have the hip drained. 03/31 Patient evaluated at bedside this morning. He underwent joint aspiration by interventional radiology yesterday. Planning for surgical intervention by orthopedics today. Infectious disease following. We will follow up after surgery 04/01 Patient evaluated bedside this morning. Underwent surgical intervention yesterday. Currently on daptomycin zosyn per ID. Initial Gram stain from hip aspiration showing gram-positive cocci. Await further culture results. PT OT per 04/02 Evaluated at bedside. Complaining of some incisional pain otherwise doing well. Hospitalist contacted by [facility] that there cultures were positive infectious disease aware. Repeat cultures today continue antibiotics. 04/03/2021 No acute events overnight. Patient seen and examined bedside. Resting comfortably in bed. No concerns of pain uncontrolled at this time. Repeat b lood cultures negative to date. Patient's chart, labs, images were reviewed and discussed with RN Vitals/I&O Vitals/I&O: Vital Signs Date Time Temp Pulse Resp B/P (MAP) Pulse Ox O2 Delivery O2 Flow Rate FiO2 04/03/21 08:41 64 147/76 04/03/21 08:40 Room Air 04/03/21 07:00 98.3 20 97 98.3 I & O 04/02/21 04/02/21 04/03/21 15:00 23:00 07:00 Intake Total 600 ml 220 ml 100 ml Output Total 1100 ml 350 ml 600 ml Balance -500 ml -130 ml -500 ml Physical Exam Physical Exam: GENERAL: Alert, oriented x 3 male, lying in bed comfortably, in no acute distress, talking on phone. HEENT: Normocephalic, atraumatic. Anicteric. Dentition fair. No thrush. NECK: Supple, no JVD. LUNGS: Clear bilaterally. No wheezing. HEART: S1, S2. No gallops or murmurs. ABDOMEN: Soft, nontender, nondistended, no rebound, no guarding. EXTREMITIES: Right thigh dressing intact dry not taken down. Left hip arthroplasty site looks okay. Left shoulder arthroplasty site looks okay. No other joint effusion or decrease in range of motion noted. CENTRAL NERVOUS SYSTEM: Alert and oriented x 3, grossly nonfocal. PSYCHIATRIC: Calm and cooperative. DERMATOLOGIC: Warm, dry, no generalized rash. General: Alert, Oriented X3, Cooperative Heart: Regular rate, Normal S1, Normal S2 Lungs: Clear Abdomen: Normal bowel sounds, Soft, No tenderness Extremities: No edema, Normal pulses Skin: No significant lesion Labs Labs: Laboratory Tests Test 04/03/21 06:15 Creatine Kinase 51 U/L (39-308) Comment Review of Relevant I have reviewed the following items ganesh (where applicable) has been applied. Medications: Current Medications Medications (Trade) Dose Ordered Sig/Xiao Route PRN Reason Start Time Stop Time Status Last Admin Dose Admin Oxycodone/ Acetaminophen (Percocet 10/325) 1 tab PRN Q4HRS PRN PO SEVERE PAIN 7-10 04/02/21 21:15 04/03/21 08:40 Justifications for Admission Other Justification MINO PAGE MD Apr 03, 2021 11:00
[2021-04-03 11:22] VITALS: BP 119/48
--- NOTE | 2021-04-03 11:32 | PDOC ---
Infectious Disease Note Subjective: Subjective Patient has postop site pain but under control with pain medications No fever, nausea, vomiting, shortness of breath, cough, diarrhea, abdominal pain Vital Signs: Vital Signs Vital Signs Date Time Temp Pulse Resp B/P (MAP) Pulse Ox O2 Delivery O2 Flow Rate FiO2 04/03/21 11:22 98.7 65 20 119/48 (71) 99 Room Air 98.7 Physical Exam: PHYSICAL EXAM GENERAL: Alert, oriented x 3 male, in chair, comfortable in no acute distress, talking on phone. HEENT: Normocephalic, atraumatic. Anicteric. Dentition fair. No thrush. NECK: Supple, no JVD. LUNGS: Clear bilaterally. No wheezing. HEART: S1, S2. No gallops or murmurs. ABDOMEN: Soft, nontender, nondistended, no rebound, no guarding. EXTREMITIES: Right thigh dressing intact dry not taken down. Left hip arthroplasty site looks okay. Left shoulder arthroplasty site looks okay. No other joint effusion or decrease in range of motion noted. CENTRAL NERVOUS SYSTEM: Alert and oriented x 3, grossly nonfocal. PSYCHIATRIC: Calm and cooperative. DERMATOLOGIC: Warm, dry, no generalized rash. Medications: Inpatient Meds: Medications reviewed. Labs: Lab Laboratory Tests Test 04/03/21 06:15 Creatine Kinase 51 U/L (39-308) Objective: Assessment: Gram-positive bacteremia 4 out of 4 bottles at [facility] present on admission 03/30/2021 Right total hip arthroplasty status post synovial aspirate , on 03/30 with WBC count of 85,000. Synovial aspirate cultures Cultures strep intermedius Status post I&D March 31 with cloudy fluid 2. Right ANINA 2002 right hip pain. From above. 3. Leukocytosis. Improving 4. Subjective fevers and chills. Resolved 5. History of degenerative joint disease. 6. Gastroesophageal reflux disease. 7. Hypothyroidism. 8. 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 History of recent tooth extraction 1 week prior to admission Plan: Plan of Care Continue Zosyn and daptomycin Intraoperative cultures not available Monitor labs and cultures Follow-up final blood culture results from [facility] 03/30/2021 blood cultures April 02, 2021 neg so far Continue supportive care. Continue wound management as directed pT and OT as tolerated Avoid placing PICC line until repeat blood cultures are negative for 48 to 72 hours SOTO,ARUNDHATI S MD Apr 03, 2021 11:32
[2021-04-03] MEDS: DAPTOmycin (GENERIC) IVPB 530 MG in IV NORMAL SALINE 50ML 50 ML IV SCH (14:22)
[2021-04-03 15:00] VITALS: BP 137/68
[2021-04-03] MEDS: ENOXAPARIN 40 MG/0.4 ML SYRINGE. SQ SCH (17:32)
[2021-04-03 19:00] VITALS: BP 140/65
[2021-04-03 23:11] VITALS: BP 111/69
[2021-04-04] MEDS: PIPERACILLIN/TAZOBACTAM 4.5 GM in IV NORMAL SALINE 100ML 100 ML IV SCH ×4 (00:37→17:34)
[2021-04-04 03:00] VITALS: BP 150/78
[2021-04-04] MEDS: LEVOTHYROXINE 50 MCG TABLET PO SCH (05:58)
[2021-04-04] MEDS: oxyCODONE/APAP 10/325 1 TAB TABLET PO PRN ×4 (06:01→21:34)
[2021-04-04 07:00] VITALS: BP 132/70
[2021-04-04] MEDS: MORPHINE SULFATE 2 MG/ML INJ. IVP PRN ×3 (08:22→19:44)
[2021-04-04] MEDS: PANTOPRAZOLE 40 MG TABLET.DR. PO SCH (08:22)
[2021-04-04] MEDS: LACTOBACILLUS RHAMNOSUS GG 1 CAPSULE. PO SCH ×2 (08:22→19:44)
[2021-04-04] MEDS: CITALOPRAM 20 MG TABLET. PO SCH (08:22)
[2021-04-04] MEDS: PROPRANOLOL 40 MG TABLET. PO SCH (08:22)
[2021-04-04] MEDS: SENNOSIDES/DOCUSATE 8.6/50MG TABLET. PO SCH ×2 (08:22→19:44)
[2021-04-04] MEDS: POLYETHYLENE GLYCOL 3350 17 GM PACKET. PO SCH (08:23)
--- NOTE | 2021-04-04 10:09 | PDOC ---
Infectious Disease Note Subjective: Subjective Patient has postop site pain No fever, nausea, vomiting, shortness of breath, cough, diarrhea, abdominal pain has constipation Vital Signs: Vital Signs Vital Signs Date Time Temp Pulse Resp B/P (MAP) Pulse Ox O2 Delivery O2 Flow Rate FiO2 04/04/21 08:22 70 132/70 04/04/21 08:22 Room Air 04/04/21 07:00 99.3 20 98 99.3 Physical Exam: PHYSICAL EXAM GENERAL: Alert, oriented x 3 male, in chair, comfortable in no acute distress, talking on phone. HEENT: Normocephalic, atraumatic. Anicteric. Dentition fair. No thrush. NECK: Supple, no JVD. LUNGS: Clear bilaterally. No wheezing. HEART: S1, S2. No gallops or murmurs. ABDOMEN: Soft, nontender, nondistended, no rebound, no guarding. EXTREMITIES: Right thigh dressing intact dry not taken down. Left hip arthroplasty site looks okay. Left shoulder arthroplasty site looks okay. No other joint effusion or decrease in range of motion noted. CENTRAL NERVOUS SYSTEM: Alert and oriented x 3, grossly nonfocal. PSYCHIATRIC: Calm and cooperative. DERMATOLOGIC: Warm, dry, no generalized rash. Medications: Inpatient Meds: Medications reviewed. Objective: Assessment: Strep intermedius bacteremia 4 out of 4 bottles at [facility] present on admission 03/30/2021 Right total hip arthroplasty status post synovial aspirate , on 03/30 with WBC count of 85,000. Synovial aspirate cultures Cultures strep intermedius Status post I&D March 31 with cloudy fluid 2. Right ANNIA 2002 right hip pain. From above. 3. Leukocytosis. Improving 4. Subjective fevers and chills. Resolved 5. History of degenerative joint disease. 6. Gastroesophageal reflux disease. 7. Hypothyroidism. 8. 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 History of recent tooth extraction 1 week prior to admission Plan: Plan of Care Continue Zosyn and daptomycin Intraoperative cultures not available Monitor labs and cultures blood cultures April 02, 2021 neg so far Continue supportive care. Continue wound management as directed pT and OT as tolerated Will need picc line D/W at bedside D/W ERICA WAITE MD Apr 04, 2021 10:09
[2021-04-04 11:00] VITALS: BP 119/59
--- NOTE | 2021-04-04 11:27 | PDOC ---
[employer] PROGRESS NOTE Date of Service DOS: DATE: 04/04/21 TIME: 11:24 Chief Complaint Chief Complaint Streptococcus bacteremia Septic arthritis with aspirate done on 03/30/2021 History of right ANNIA 2002 History of GERD History of hypothyroidism History of left ANNIA with revision arthroplasty in 2005 Continued IV antibiotics Pending blood culture and Intra-Op cultures sensitivities Continue PT OT modalities IV pain control History of Present Illness History of Present Illness he patient is a pleasant 75-year-old male who presented to [facility] with hip pain. He states it woke him up screaming. They did some imaging confirming right hip septic arthritis. He has been transferred here for Orthopedic consultation and consultation with Dr. Terrazas of the Interventional Radiology service to have the hip drained. 03/31 Patient evaluated at bedside this morning. He underwent joint aspiration by interventional radiology yesterday. Planning for surgical intervention by orthopedics today. Infectious disease following. We will follow up after surgery 04/01 Patient evaluated bedside this morning. Underwent surgical intervention yesterday. Currently on daptomycin zosyn per ID. Initial Gram stain from hip aspiration showing gram-positive cocci. Await further culture results. PT OT per 04/02 Evaluated at bedside. Complaining of some incisional pain otherwise doing well. Hospitalist contacted by [facility] that there cultures were positive infectious disease aware. Repeat cultures today continue antibiotics. 04/03/2021 No acute events overnight. Patient seen and examined bedside. Resting comfortably in bed. No concerns of pain uncontrolled at this time. Repeat blood cultures negative to date. Patient's chart, labs, images were reviewed and discussed with RN 04/04/2021 Patient seen working with physical therapy with walker. Pain is 8 out of 10 currently. Will avoid PICC until final cultures have returned. Patient's chart, labs, images were reviewed and discussed with RN Vitals/I&O Vitals/I&O: Vital Signs Date Time Temp Pulse Resp B/P (MAP) Pulse Ox O2 Delivery O2 Flow Rate FiO2 04/04/21 08:22 70 132/70 04/04/21 08:22 Room Air 04/04/21 08:00 2.0 04/04/21 07:00 99.3 20 98 99.3 I & O 04/03/21 04/03/21 04/04/21 14:59 22:59 06:59 Intake Total 320 ml 400 ml 500 ml Output Total 700 ml 1450 ml Balance -380 ml 400 ml -950 ml Physical Exam Physical Exam: GENERAL: Alert, oriented x 3 male, in chair, comfortable in no acute distress, talking on phone. HEENT: Normocephalic, atraumatic. Anicteric. Dentition fair. No thrush. NECK: Supple, no JVD. LUNGS: Clear bilaterally. No wheezing. HEART: S1, S2. No gallops or murmurs. ABDOMEN: Soft, nontender, nondistended, no rebound, no guarding. EXTREMITIES: Right thigh dressing intact dry not taken down. Left hip arthroplasty site looks okay. Left shoulder arthroplasty site looks okay. No other joint effusion or decrease in range of motion noted. CENTRAL NERVOUS SYSTEM: Alert and oriented x 3, grossly nonfocal. PSYCHIATRIC: Calm and cooperative. DERMATOLOGIC: Warm, dry, no generalized rash. General: Alert, Oriented X3, Cooperative Heart: Regular rate, Normal S1, Normal S2 Lungs: Clear Abdomen: Normal bowel sounds, Soft, No tenderness Extremities: No edema, Normal pulses Skin: No significant lesion Comment Review of Relevant I have reviewed the following items ganesh (where applicable) has been applied. Medications: Current Medications Medications (Trade) Dose Ordered Sig/Xiao Route PRN Reason Start Time Stop Time Status Last Admin Dose Admin Enoxaparin Sodium (Lovenox 40mg Syringe) 40 mg Q24H SQ 04/03/21 16:00 04/03/21 17:32 Justifications for Admission Other Justification MINO PAGE MD Apr 04, 2021 11:26
[2021-04-04 15:00] VITALS: BP 122/68
[2021-04-04] MEDS: DAPTOmycin (GENERIC) IVPB 530 MG in IV NORMAL SALINE 50ML 50 ML IV SCH (15:10)
[2021-04-04] MEDS: ENOXAPARIN 40 MG/0.4 ML SYRINGE. SQ SCH (15:10)
[2021-04-04 19:00] VITALS: BP_SYST 104; BP_SYST 148; BP_DIAS 63; BP_DIAS 83
[2021-04-04 23:00] VITALS: BP 127/64
[2021-04-05] MEDS: PIPERACILLIN/TAZOBACTAM 4.5 GM in IV NORMAL SALINE 100ML 100 ML IV SCH ×2 (00:10→05:36)
[2021-04-05 03:00] VITALS: BP 164/65
[2021-04-05] MEDS: MORPHINE SULFATE 2 MG/ML INJ. IVP PRN ×2 (05:36→21:49)
[2021-04-05] MEDS: LEVOTHYROXINE 50 MCG TABLET PO SCH (05:36)
[2021-04-05 07:00] VITALS: BP 130/66
[2021-04-05 07:19] LABS: BASO % 1 % (0-3); EOS # 0.3 x10^3/uL (0.0-0.7); EOS % 3 % (0-3); HEMATOCRIT 31.2 % (39.0-53.0); HEMOGLOBIN 10.7 g/dL (13.0-17.5); LYMPH # 1.4 x10^3/uL (1.0-4.8); LYMPH % 13 % (24-48); MEAN CORPUSCULAR HEMOGLOBIN 35 pg (25-35); MEAN CORPUSCULAR HGB CONC 34 g/dL (31-37); MEAN CORPUSCULAR VOLUME 102 fL (79-100); MONO # 0.8 x10^3/uL (0.0-1.1); MONO % 8 % (0-9); NEUT # 7.7 x10^3/uL (1.8-7.7); NEUT % 76 % (31-73); PLATELET COUNT 305 x10^3/uL (140-400); RED BLOOD COUNT 3.05 x10^6/uL (4.30-5.70); RED CELL DISTRIBUTION WIDTH 12.7 % (11.5-14.5); WHITE BLOOD COUNT 10.2 x10^3/uL (4.0-11.0)
[2021-04-05 07:20] LABS: ALBUMIN 2.2 g/dL (3.4-5.0); ALBUMIN/GLOBULIN RATIO 0.5 (1.0-1.7); CALCIUM 8.9 mg/dL (8.5-10.1); CREATININE 0.9 mg/dL (0.7-1.3); GFR 82.3; POTASSIUM 4.4 mmol/L (3.5-5.1); TOTAL BILIRUBIN 0.3 mg/dL (0.2-1.0); TOTAL PROTEIN 6.9 g/dL (6.4-8.2)
--- NOTE | 2021-04-05 07:56 | PDOC ---
[employer] PROGRESS NOTE Date of Service DOS: DATE: 04/05/21 TIME: 07:49 Chief Complaint Chief Complaint Streptococcus bacteremia Septic arthritis with aspirate done on 03/30/2021 History of right ANNIA 2002 History of GERD History of hypothyroidism History of left ANNIA with revision arthroplasty in 2005 Continued IV antibiotics Pending blood culture and Intra-Op cultures sensitivities Continue PT OT modalities IV pain control History of Present Illness History of Present Illness The patient is a pleasant 75-year-old male who presented to [facility] with hip pain. He states it woke him up screaming. They did some imaging confirming right hip septic arthritis. He has been transferred here for Orthopedic consultation and consultation with Dr. Terrazas of the Interventional Radiology service to have the hip drained. 03/31 Patient evaluated at bedside this morning. He underwent joint aspiration by interventional radiology yesterday. Planning for surgical intervention by orthopedics today. Infectious disease following. We will follow up after surgery 04/01 Patient evaluated bedside this morning. Underwent surgical intervention yesterday. Currently on daptomycin zosyn per ID. Initial Gram stain from hip aspiration showing gram-positive cocci. Await further culture results. PT OT per 04/02 Evaluated at bedside. Complaining of some incisional pain otherwise doing well. Hospitalist contacted by [facility] that there cultures were positive infectious disease aware. Repeat cultures today continue antibiotics. 04/03/2021 No acute events overnight. Patient seen and examined bedside. Resting comfortably in bed. No concerns of pain uncontrolled at this time. Repeat blood cultures negative to date. Patient's chart, labs, images were reviewed and discussed with RN 04/04/2021 Patient seen working with physical therapy with walker. Pain is 8 out of 10 currently. Will avoid PICC until final cultures have returned. Patient's chart, labs, images were reviewed and discussed with RN 04/05/2021: Afebrile. Seen working with PT; reported pain with ambulation. PT recommending home independently or home with home health upon discharge. Gram- positive bacteremia in 4:4 bottles at [facility]; repeat blood cultures with no growth to date. Will discuss with ID about possible PICC line placement today to continue outpatient antibiotics. Anticipate discharge to home with outpatient antibiotic infusions. Vitals/I&O Vitals/I&O: Vital Signs Date Time Temp Pulse Resp B/P (MAP) Pulse Ox O2 Delivery O2 Flow Rate FiO2 04/05/21 07:00 98.3 69 18 130/66 (87) 97 98.3 04/05/21 03:00 Room Air 04/04/21 08:00 2.0 I & O 04/04/21 04/04/21 04/05/21 15:00 23:00 07:00 Intake Total 320 ml 450 ml 400 ml Output Total 550 ml Balance 320 ml 450 ml -150 ml Physical Exam Physical Exam: GENERAL: Alert, oriented x 3 male, in chair, comfortable in no acute distress, talking on phone. HEENT: Normocephalic, atraumatic. Anicteric. Dentition fair. No thrush. NECK: Supple, no JVD. LUNGS: Clear bilaterally. No wheezing. HEART: S1, S2. No gallops or murmurs. ABDOMEN: Soft, nontender, nondistended, no rebound, no guarding. EXTREMITIES: Right thigh dressing intact dry not taken down. Left hip arthroplasty site looks okay. Left shoulder arthroplasty site looks okay. No other joint effusion or decrease in range of motion noted. CENTRAL NERVOUS SYSTEM: Alert and oriented x 3, grossly nonfocal. PSYCHIATRIC: Calm and cooperative. DERMATOLOGIC: Warm, dry, no generalized rash. General: Alert, Oriented X3, Cooperative Heart: Regular rate, Normal S1, Normal S2 Lungs: Clear Abdomen: Normal bowel sounds, Soft, No tenderness Extremities: No edema, Normal pulses Skin: No significant lesion Labs Labs: Laboratory Tests Test 04/05/21 05:35 Sodium Level 137 mmol/L (136-145) Potassium Level 4.4 mmol/L (3.5-5.1) Chloride Level 99 mmol/L (98-107) Carbon Dioxide Level 33 mmol/L (21-32) Anion Gap 5 (6-14) Blood Urea Nitrogen 14 mg/dL (8-26) Creatinine 0.9 mg/dL (0.7-1.3) Estimated GFR (Cockcroft-Gault) 82.3 BUN/Creatinine Ratio 16 (6-20) Glucose Level 90 mg/dL (70-99) Calcium Level 8.9 mg/dL (8.5-10.1) Total Bilirubin 0.3 mg/dL (0.2-1.0) Aspartate Amino Transf (AST/SGOT) 27 U/L (15-37) Alanine Aminotransferase (ALT/SGPT) 94 U/L (16-63) Alkaline Phosphatase 117 U/L (46-116) Total Protein 6.9 g/dL (6.4-8.2) Albumin 2.2 g/dL (3.4-5.0) Albumin/Globulin Ratio 0.5 (1.0-1.7) Comment Review of Relevant I have reviewed the following items ganesh (where applicable) has been applied. Justifications for Admission Other Justification VALDO LEY MD Apr 05, 2021 07:56
--- NOTE | 2021-04-05 08:13 | PDOC ---
Infectious Disease Note Subjective: Subjective Patient has postop site pain No fever, nausea, vomiting, shortness of breath, cough, diarrhea, abdominal pain has constipation Vital Signs: Vital Signs Vital Signs Date Time Temp Pulse Resp B/P (MAP) Pulse Ox O2 Delivery O2 Flow Rate FiO2 04/05/21 07:00 98.3 69 18 130/66 (87) 97 98.3 04/05/21 03:00 Room Air 04/04/21 08:00 2.0 Physical Exam: PHYSICAL EXAM GENERAL: Alert, oriented x 3 male, in chair, comfortable in no acute distress, talking on phone. HEENT: Normocephalic, atraumatic. Anicteric. Dentition fair. No thrush. NECK: Supple, no JVD. LUNGS: Clear bilaterally. No wheezing. HEART: S1, S2. No gallops or murmurs. ABDOMEN: Soft, nontender, nondistended, no rebound, no guarding. EXTREMITIES: Right thigh dressing intact dry not taken down. Left hip arthroplasty site looks okay. Left shoulder arthroplasty site looks okay. No other joint effusion or decrease in range of motion noted. CENTRAL NERVOUS SYSTEM: Alert and oriented x 3, grossly nonfocal. PSYCHIATRIC: Calm and cooperative. DERMATOLOGIC: Warm, dry, no generalized rash. Medications: Inpatient Meds: Medications reviewed. Labs: Lab Laboratory Tests Test 04/05/21 05:35 White Blood Count 10.2 x10^3/uL (4.0-11.0) Red Blood Count 3.05 x10^6/uL (4.30-5.70) Hemoglobin 10.7 g/dL (13.0-17.5) Hematocrit 31.2 % (39.0-53.0) Mean Corpuscular Volume 102 fL (79-100) Mean Corpuscular Hemoglobin 35 pg (25-35) Mean Corpuscular Hemoglobin Concent 34 g/dL (31-37) Red Cell Distribution Width 12.7 % (11.5-14.5) Platelet Count 305 x10^3/uL (140-400) Neutrophils (%) (Auto) 76 % (31-73) Lymphocytes (%) (Auto) 13 % (24-48) Monocytes (%) (Auto) 8 % (0-9) Eosinophils (%) (Auto) 3 % (0-3) Basophils (%) (Auto) 1 % (0-3) Neutrophils # (Auto) 7.7 x10^3/uL (1.8-7.7) Lymphocytes # (Auto) 1.4 x10^3/uL (1.0-4.8) Monocytes # (Auto) 0.8 x10^3/uL (0.0-1.1) Eosinophils # (Auto) 0.3 x10^3/uL (0.0-0.7) Basophils # (Auto) 0.0 x10^3/uL (0.0-0.2) Sodium Level 137 mmol/L (136-145) Potassium Level 4.4 mmol/L (3.5-5.1) Chloride Level 99 mmol/L (98-107) Carbon Dioxide Level 33 mmol/L (21-32) Anion Gap 5 (6-14) Blood Urea Nitrogen 14 mg/dL (8-26) Creatinine 0.9 mg/dL (0.7-1.3) Estimated GFR (Cockcroft-Gault) 82.3 BUN/Creatinine Ratio 16 (6-20) Glucose Level 90 mg/dL (70-99) Calcium Level 8.9 mg/dL (8.5-10.1) Total Bilirubin 0.3 mg/dL (0.2-1.0) Aspartate Amino Transf (AST/SGOT) 27 U/L (15-37) Alanine Aminotransferase (ALT/SGPT) 94 U/L (16-63) Alkaline Phosphatase 117 U/L (46-116) Total Protein 6.9 g/dL (6.4-8.2) Albumin 2.2 g/dL (3.4-5.0) Albumin/Globulin Ratio 0.5 (1.0-1.7) Objective: Assessment: 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 Synovial aspirate cultures Cultures strep intermedius Status post I&D March 31 with cloudy fluid Strep intermedius bacteremia 4 out of 4 bottles at [facility] present on admission 03/30/2021 2. Right ANNIA 2002 right hip pain. From above. 3. Leukocytosis. Improving 4. Subjective fevers and chills. Resolved 5. History of degenerative joint disease. 6. Gastroesophageal reflux disease. 7. Hypothyroidism. 8. 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 History of recent tooth extraction 1 week prior to admission Plan: Plan of Care DC Zosyn and daptomycin start Ceftriaxone for 6 weeks followed by oral suppressive antibiotics Intraoperative cultures not available If antibiotics treatment fails pt will need explant This was discussed with patient and at length PICC line placement today PICC line o scribe operator and complications discussed Side effects of antibiotics discussed Probiotics Prescription in chart Social work to assist with discharge antibiotics Q. Monday labs CBC/BUN/creatinine/CPK/ESR/CRP. Fax results to [phone] Follow-up ID clinic on Apr 20 at 2.00 pm , Ph [phone] PT and OT and wound care per orthopedics D/W ERICA WAITE MD Apr 05, 2021 08:13
[2021-04-05] MEDS: PROPRANOLOL 40 MG TABLET. PO SCH (08:51)
[2021-04-05] MEDS: POLYETHYLENE GLYCOL 3350 17 GM PACKET. PO SCH (08:51)
[2021-04-05] MEDS: LACTOBACILLUS RHAMNOSUS GG 1 CAPSULE. PO SCH ×2 (08:52→21:47)
[2021-04-05] MEDS: SENNOSIDES/DOCUSATE 8.6/50MG TABLET. PO SCH ×2 (08:52→21:47)
[2021-04-05] MEDS: CITALOPRAM 20 MG TABLET. PO SCH (08:52)
[2021-04-05] MEDS: PANTOPRAZOLE 40 MG TABLET.DR. PO SCH (08:52)
[2021-04-05] MEDS: oxyCODONE/APAP 10/325 1 TAB TABLET PO PRN ×3 (08:54→22:53)
[2021-04-05 10:25] VITALS: BP 126/61
[2021-04-05] MEDS ORDERED: LIDOCAINE WITH 8.4% SOD BICARB 3 ML DISP.SYRIN. ONE (11:43)
[2021-04-05] MEDS ORDERED: LIDOCAINE WITH 8.4% SOD BICARB 3 ML DISP.SYRIN. INJ ONE (12:00)
--- NOTE | 2021-04-05 12:20 | PDOC ---
PROGRESS NOTES Date of Service DATE: 04/05/21 TIME: 12:18 Subjective Subjective Problems overnight: Overall the hip is sore but he has a lot less pain than originally on presentation and he is getting up and around reasonably well Objective Vital Signs Vital Signs Date Time Temp Pulse Resp B/P (MAP) Pulse Ox O2 Delivery O2 Flow Rate FiO2 04/05/21 10:25 98.8 64 18 126/61 (82) 100 98.8 04/05/21 08:54 Room Air 04/04/21 08:00 2.0 Physical Exam Slight bloody drainage on the dressing leg lengths equal distal neurovascular status intact Labs Laboratory Tests Test 04/05/21 05:35 White Blood Count 10.2 x10^3/uL (4.0-11.0) Red Blood Count 3.05 x10^6/uL (4.30-5.70) Hemoglobin 10.7 g/dL (13.0-17.5) Hematocrit 31.2 % (39.0-53.0) Mean Corpuscular Volume 102 fL (79-100) Mean Corpuscular Hemoglobin 35 pg (25-35) Mean Corpuscular Hemoglobin Concent 34 g/dL (31-37) Red Cell Distribution Width 12.7 % (11.5-14.5) Platelet Count 305 x10^3/uL (140-400) Neutrophils (%) (Auto) 76 % (31-73) Lymphocytes (%) (Auto) 13 % (24-48) Monocytes (%) (Auto) 8 % (0-9) Eosinophils (%) (Auto) 3 % (0-3) Basophils (%) (Auto) 1 % (0-3) Neutrophils # (Auto) 7.7 x10^3/uL (1.8-7.7) Lymphocytes # (Auto) 1.4 x10^3/uL (1.0-4.8) Monocytes # (Auto) 0.8 x10^3/uL (0.0-1.1) Eosinophils # (Auto) 0.3 x10^3/uL (0.0-0.7) Basophils # (Auto) 0.0 x10^3/uL (0.0-0.2) Sodium Level 137 mmol/L (136-145) Potassium Level 4.4 mmol/L (3.5-5.1) Chloride Level 99 mmol/L (98-107) Carbon Dioxide Level 33 mmol/L (21-32) Anion Gap 5 (6-14) Blood Urea Nitrogen 14 mg/dL (8-26) Creatinine 0.9 mg/dL (0.7-1.3) Estimated GFR (Cockcroft-Gault) 82.3 BUN/Creatinine Ratio 16 (6-20) Glucose Level 90 mg/dL (70-99) Calcium Level 8.9 mg/dL (8.5-10.1) Total Bilirubin 0.3 mg/dL (0.2-1.0) Aspartate Amino Transf (AST/SGOT) 27 U/L (15-37) Alanine Aminotransferase (ALT/SGPT) 94 U/L (16-63) Alkaline Phosphatase 117 U/L (46-116) Total Protein 6.9 g/dL (6.4-8.2) Albumin 2.2 g/dL (3.4-5.0) Albumin/Globulin Ratio 0.5 (1.0-1.7) Laboratory Tests Test 04/05/21 05:35 White Blood Count 10.2 x10^3/uL (4.0-11.0) Red Blood Count 3.05 x10^6/uL (4.30-5.70) Hemoglobin 10.7 g/dL (13.0-17.5) Hematocrit 31.2 % (39.0-53.0) Mean Corpuscular Volume 102 fL (79-100) Mean Corpuscular Hemoglobin 35 pg (25-35) Mean Corpuscular Hemoglobin Concent 34 g/dL (31-37) Red Cell Distribution Width 12.7 % (11.5-14.5) Platelet Count 305 x10^3/uL (140-400) Neutrophils (%) (Auto) 76 % (31-73) Lymphocytes (%) (Auto) 13 % (24-48) Monocytes (%) (Auto) 8 % (0-9) Eosinophils (%) (Auto) 3 % (0-3) Basophils (%) (Auto) 1 % (0-3) Neutrophils # (Auto) 7.7 x10^3/uL (1.8-7.7) Lymphocytes # (Auto) 1.4 x10^3/uL (1.0-4.8) Monocytes # (Auto) 0.8 x10^3/uL (0.0-1.1) Eosinophils # (Auto) 0.3 x10^3/uL (0.0-0.7) Basophils # (Auto) 0.0 x10^3/uL (0.0-0.2) Sodium Level 137 mmol/L (136-145) Potassium Level 4.4 mmol/L (3.5-5.1) Chloride Level 99 mmol/L (98-107) Carbon Dioxide Level 33 mmol/L (21-32) Anion Gap 5 (6-14) Blood Urea Nitrogen 14 mg/dL (8-26) Creatinine 0.9 mg/dL (0.7-1.3) Estimated GFR (Cockcroft-Gault) 82.3 BUN/Creatinine Ratio 16 (6-20) Glucose Level 90 mg/dL (70-99) Calcium Level 8.9 mg/dL (8.5-10.1) Total Bilirubin 0.3 mg/dL (0.2-1.0) Aspartate Amino Transf (AST/SGOT) 27 U/L (15-37) Alanine Aminotransferase (ALT/SGPT) 94 U/L (16-63) Alkaline Phosphatase 117 U/L (46-116) Total Protein 6.9 g/dL (6.4-8.2) Albumin 2.2 g/dL (3.4-5.0) Albumin/Globulin Ratio 0.5 (1.0-1.7) Assessment Assessment POD#irrigation debridement of right septic total hip Plan Plan of Care Cultures show a strep species, discussed with Dr. Tejeda of infectious disease and he is going to get a PICC line and IV antibiotics. Continue mobilize with physical therapy, Aquacel dressing Follow-up on discharge with [facility] Dr. Prasanna Oakleyicifation of Admission Dx: Justifications for Admission: Justification of Admission Dx: N/A HANNA ALVARADO MD Apr 05, 2021 12:20
--- NOTE | 2021-04-05 12:51 | RAD ---
Date: 04/05/2021 Exam: Fluoroscopic and ultrasound guided peripheral central venous catheter placement. Indication: Consent: The procedure was explained in its entirety to the patient or the patients designated repres entative by a member of the treatment team, including a discussion of the risks, benefits and commonl y accepted alternatives to the procedure, as well as the expected consequences of no therapy whatsoev er. Discussion of the risks included, but was not limited to, those that are most frequent and thos e that are rare but possibly severe or life-threatening, as well as the possibility of unforeseen com plications. Discussion: A timeout procedure was performed. The patient was prepped and draped using maximum sterile techniq ue, including the use of: Current guideline approved cutaneous antisepsis, a large sterile sheet to e stablish a sterile field. Additionally the treating plant operator wore a hat, mask, sterile gloves, a sterile gown during the procedure as well as practiced acceptable hand hygiene prior to placing the line. 1% lidoc princess was administered for local anesthesia. Ultrasound evaluation demonstrates a patent right basilic vein. Reference images were saved in the edical record. The selected vein was accessed using micropuncture technique. A guidewire was advanced centrally. The PICC line was cut to length, and advanced through a peel-away sheath such that it's tip resides at the cavoatrial junction. The peel-away sheath a sheath was removed. The catheter was s ecured in place. The catheter was found to flush and aspirate normally.. Sterile dressings were appli ed. No immediate complications were identified. Fluoroscopy time: 0.1 minutes Dose area product: 1 Gycm2 Impression: Successful placement of a right upper extremity PICC line Electronically signed by: Trent Terrazas MD (04/05/2021 12:49 PM) [id number]
--- NOTE | 2021-04-05 13:39 | NUR ---
SW following. Discussed with RN, pt from home with , room air, regular diet. Therapy recommending home health. Pt needing rodent exterminator IV abx. SHELLEY met with pt, pt does not want to go to a facility and does not want to have to come to the hospital daily for the infusion. SHELLEY explained that [employer] does not cover home infusion but SHELLEY can send the referral to a home infusion company to see if the supplement insurance would cover anything. Pt agreeable does not have a preference. SHELLEY faxed to [facility] as they are quick to respond with benefits. SHELLEY will continue to follow. Addendum: 04/05/21 at 1606 by LIS ROSA [facility] notified SHELLEY pt would be responsible for $147.13 per week for home infusion. SHELLEY spoke with pt and pt's , they are considering coming to the hospital daily. Pt agreeable to speaking with [place] to discuss payment plan options. Awaiting pt decision.
[2021-04-05 15:00] VITALS: BP 118/61
[2021-04-05] MEDS: cefTRIAXone IV Push 2 GM VIAL. IVP SCH (15:34)
[2021-04-05] MEDS: ENOXAPARIN 40 MG/0.4 ML SYRINGE. SQ SCH (15:35)
[2021-04-05 19:00] VITALS: BP 149/59
[2021-04-05 23:00] VITALS: BP 138/77
[2021-04-06 03:00] VITALS: BP 146/76
[2021-04-06] MEDS: LEVOTHYROXINE 50 MCG TABLET PO SCH (06:19)
[2021-04-06] MEDS: oxyCODONE/APAP 10/325 1 TAB TABLET PO PRN (06:19)
[2021-04-06 07:00] VITALS: BP 142/78
[2021-04-06] MEDS: PANTOPRAZOLE 40 MG TABLET.DR. PO SCH (08:36)
[2021-04-06] MEDS: LACTOBACILLUS RHAMNOSUS GG 1 CAPSULE. PO SCH (08:36)
[2021-04-06] MEDS: PROPRANOLOL 40 MG TABLET. PO SCH (08:37)
[2021-04-06] MEDS: SENNOSIDES/DOCUSATE 8.6/50MG TABLET. PO SCH (08:37)
[2021-04-06] MEDS: CITALOPRAM 20 MG TABLET. PO SCH (08:37)
[2021-04-06] MEDS: POLYETHYLENE GLYCOL 3350 17 GM PACKET. PO SCH (08:37)
[2021-04-06] MEDS: cefTRIAXone IV Push 2 GM VIAL. IVP SCH (10:23)
[2021-04-06 11:00] VITALS: BP 113/69
--- NOTE | 2021-04-06 11:07 | PDOC ---
[employer] PROGRESS NOTE Date of Service DOS: DATE: 04/06/21 TIME: 10:56 Chief Complaint Chief Complaint Streptococcus bacteremia Septic arthritis with aspirate done on 03/30/2021 History of right ANNIA 2002 History of GERD History of hypothyroidism History of left ANNIA with revision arthroplasty in 2005 Continued IV antibiotics Pending blood culture and Intra-Op cultures sensitivities Continue PT OT modalities IV pain control History of Present Illness History of Present Illness The patient is a pleasant 75-year-old male who presented to [facility] with hip pain. He states it woke him up screaming. They did some imaging confirming right hip septic arthritis. He has been transferred here for Orthopedic consultation and consultation with Dr. Terrazas of the Interventional Radiology service to have the hip drained. 03/31 Patient evaluated at bedside this morning. He underwent joint aspiration by interventional radiology yesterday. Planning for surgical intervention by orthopedics today. Infectious disease following. We will follow up after surgery 04/01 Patient evaluated bedside this morning. Underwent surgical intervention yesterday. Currently on daptomycin zosyn per ID. Initial Gram stain from hip aspiration showing gram-positive cocci. Await further culture results. PT OT per 04/02 Evaluated at bedside. Complaining of some incisional pain otherwise doing well. Hospitalist contacted by [facility] that there cultures were positive infectious disease aware. Repeat cultures today continue antibiotics. 04/03/2021 No acute events overnight. Patient seen and examined bedside. Resting comfortably in bed. No concerns of pain uncontrolled at this time. Repeat blood cultures negative to date. Patient's chart, labs, images were reviewed and discussed with RN 04/04/2021 Patient seen working with physical therapy with walker. Pain is 8 out of 10 currently. Will avoid PICC until final cultures have returned. Patient's chart, labs, images were reviewed and discussed with RN 04/05/2021: Afebrile. Seen working with PT; reported pain with ambulation. PT recommending home independently or home with home health upon discharge. Gram- positive bacteremia in 4:4 bottles at [facility]; repeat blood cultures with no growth to date. Will discuss with ID about possible PICC line placement today to continue outpatient antibiotics. Anticipate discharge to home with outpatient antibiotic infusions. 04/06/2021: Seen working with PT. Discussed home infusions versus coming to hospital daily for 6 weeks of IV antibiotics. Patient states he cannot drive to the hospital every day for 6 weeks, and is unable to afford weekly home infusions. metalworker helping with payment plan options through [facility]. If this is possible he may discharge home with either home health order family care today. Vitals/I&O Vitals/I&O: Vital Signs Date Time Temp Pulse Resp B/P (MAP) Pulse Ox O2 Delivery O2 Flow Rate FiO2 04/06/21 08:37 68 146/76 04/06/21 07:10 19 94 Room Air 04/06/21 07:00 98.2 98.2 I & O 04/05/21 04/05/21 04/06/21 15:00 23:00 07:00 Intake Total 240 ml Output Total 825 ml 350 ml 350 ml Balance -585 ml -350 ml -350 ml Physical Exam General: Alert, Oriented X3, Cooperative Heart: Regular rate, Normal S1, Normal S2 Lungs: Clear Abdomen: Normal bowel sounds, Soft, No tenderness Extremities: No edema, Normal pulses Skin: No significant lesion Comment Review of Relevant I have reviewed the following items ganesh (where applicable) has been applied. Medications: Current Medications Medications (Trade) Dose Ordered Sig/Xiao Route PRN Reason Start Time Stop Time Status Last Admin Dose Admin Lidocaine HCl (Buffered Lidocaine 1%) 6 ml 1X ONCE INJ 04/05/21 12:00 04/05/21 12:01 DC 04/05/21 12:22 Justifications for Admission Other Justification VALDO LEY MD Apr 06, 2021 11:07
--- NOTE | 2021-04-06 11:08 | PDOC ---
Infectious Disease Note Subjective: Subjective Patient without complaints No fever, nausea, vomiting, shortness of breath, cough, diarrhea, abdominal pain has constipation Vital Signs: Vital Signs Vital Signs Date Time Temp Pulse Resp B/P (MAP) Pulse Ox O2 Delivery O2 Flow Rate FiO2 04/06/21 08:37 68 146/76 04/06/21 07:10 19 94 Room Air 04/06/21 07:00 98.2 98.2 Physical Exam: PHYSICAL EXAM GENERAL: Alert, oriented x 3 male, in chair, comfortable in no acute distress, talking on phone. HEENT: Normocephalic, atraumatic. Anicteric. Dentition fair. No thrush. NECK: Supple, no JVD. LUNGS: Clear bilaterally. No wheezing. HEART: S1, S2. No gallops or murmurs. ABDOMEN: Soft, nontender, nondistended, no rebound, no guarding. EXTREMITIES: Right thigh dressing intact dry not taken down. Left hip arthroplasty site looks okay. Left shoulder arthroplasty site looks okay. No other joint effusion or decrease in range of motion noted. CENTRAL NERVOUS SYSTEM: Alert and oriented x 3, grossly nonfocal. PSYCHIATRIC: Calm and cooperative. DERMATOLOGIC: Warm, dry, no generalized rash. PICC line clean Medications: Inpatient Meds: Medications reviewed. 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 Synovial aspirate cultures Cultures strep intermedius Status post I&D March 31 with cloudy fluid Strep intermedius bacteremia 4 out of 4 bottles at [facility] present on admission 03/30/2021 2. Right ANNIA 2002 right hip pain. From above. 3. Leukocytosis. Improving 4. Subjective fevers and chills. Resolved 5. History of degenerative joint disease. 6. Gastroesophageal reflux disease. 7. Hypothyroidism. 8. 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 Monday labs CBC/BUN/creatinine/CPK/ESR/CRP. Fax results to [phone] Follow-up ID clinic on Apr 20 at 2.00 pm , Ph [phone] PT and OT and wound care per orthopedics Discussed with nursing staff D/W ERICA WAITE MD Apr 06, 2021 11:08
--- NOTE | 2021-04-06 12:09 | PDOC3 ---
Discharge Summary Visit Information Date of Admission: Mar 30, 2021 Date of Discharge: Apr 06, 2021 Brief Hospital Course Allergies Allergies Coded Allergies Type Severity Reaction Last Updated Verified No Known Drug Allergies 03/09/21 No Vital Signs Vital Signs Date Time Temp Pulse Resp B/P (MAP) Pulse Ox O2 Delivery O2 Flow Rate FiO2 04/06/21 11:00 98.0 74 18 113/69 (84) 98 98.0 04/06/21 07:10 Room Air Lab Results Laboratory Tests Test 04/05/21 05:35 White Blood Count 10.2 x10^3/uL (4.0-11.0) Red Blood Count 3.05 x10^6/uL (4.30-5.70) Hemoglobin 10.7 g/dL (13.0-17.5) Hematocrit 31.2 % (39.0-53.0) Mean Corpuscular Volume 102 fL (79-100) Mean Corpuscular Hemoglobin 35 pg (25-35) Mean Corpuscular Hemoglobin Concent 34 g/dL (31-37) Red Cell Distribution Width 12.7 % (11.5-14.5) Platelet Count 305 x10^3/uL (140-400) Neutrophils (%) (Auto) 76 % (31-73) Lymphocytes (%) (Auto) 13 % (24-48) Monocytes (%) (Auto) 8 % (0-9) Eosinophils (%) (Auto) 3 % (0-3) Basophils (%) (Auto) 1 % (0-3) Neutrophils # (Auto) 7.7 x10^3/uL (1.8-7.7) Lymphocytes # (Auto) 1.4 x10^3/uL (1.0-4.8) Monocytes # (Auto) 0.8 x10^3/uL (0.0-1.1) Eosinophils # (Auto) 0.3 x10^3/uL (0.0-0.7) Basophils # (Auto) 0.0 x10^3/uL (0.0-0.2) Sodium Level 137 mmol/L (136-145) Potassium Level 4.4 mmol/L (3.5-5.1) Chloride Level 99 mmol/L (98-107) Carbon Dioxide Level 33 mmol/L (21-32) Anion Gap 5 (6-14) Blood Urea Nitrogen 14 mg/dL (8-26) Creatinine 0.9 mg/dL (0.7-1.3) Estimated GFR (Cockcroft-Gault) 82.3 BUN/Creatinine Ratio 16 (6-20) Glucose Level 90 mg/dL (70-99) Calcium Level 8.9 mg/dL (8.5-10.1) Total Bilirubin 0.3 mg/dL (0.2-1.0) Aspartate Amino Transf (AST/SGOT) 27 U/L (15-37) Alanine Aminotransferase (ALT/SGPT) 94 U/L (16-63) Alkaline Phosphatase 117 U/L (46-116) Total Protein 6.9 g/dL (6.4-8.2) Albumin 2.2 g/dL (3.4-5.0) Albumin/Globulin Ratio 0.5 (1.0-1.7) Brief Hospital Course Mr. Taylor is a 75 old male who presented with right septic knee. Consultation placed to orthopedic surgery and ID. He had irrigation debridement of right septic total hip arthroplasty. Treated with IV antibiotics. Worked with PT and recommended home with home health. He will require 6 weeks of IV antibiotics. There was some discussion as to how patient will be able to afford home infusions versus coming to the hospital for daily infusions. He was able to establish plan and plan with home infusion services. Was stable to discharge home with ID follow-up. Discharge Information Condition at Discharge: Improved Follow Up: Weeks Disposition/Orders: D/C to Home w/ HH Scheduled Citalopram Hydrobromide (Citalopram Hbr) 20 Mg Tablet, 20 MG PO DAILY for ANXIETY , (Reported) Entered as Reported by: MUKUL MIR on 09/09/19 163 Last Action: Continued on 03/30/21 163 by KYA BAILEY Levothyroxine Sodium (Levothyroxine Sodium) 50 Mcg Tablet, 50 MCG PO DAILY for hypothyroid, (Reported) Entered as Reported by: DANIEL DURBIN RN on 10/01/18 2931 Last Action: Continued on 03/30/211631 by KYA BAILEY Pantoprazole Sodium (Pantoprazole Sodium ) 40 Mg Tablet., 40 MG PO DAILYAC for GERD, (Reported) Entered as Reported by: MUKUL MIR on 03/08/21 5508 Last Action: Continued on 03/30/211631 by KYA BAILEY Propranolol Hcl (Propranolol Hcl) 80 Mg Tablet, 80 MG PO DAILY for HIGH BLOOD PRESSURE, (Reported) Entered as Reported by: MUKUL MIR on 09/09/191632 Last Action: Converted on 03/30/211631 by KYA BAILEY Scheduled PRN Hydrocodone/Acetaminophen (Hydrocodone-Acetamin 7.5-325) 1 Each Tablet, 1 EACH PO Q4HRS W/A PRN for PAIN for 7 Days, #42 Ref 0 Prescribed by: MAGDA DALTON DO on 03/09/21 1228 Last Action: Reviewed on 03/30/211421 by KYA BAILEY Discontinued Medications Cholecalciferol (Vitamin D3) (Vitamin D3) 50 Mcg Capsule, 50 MCG PO DAILY for VITAMIN, (Reported) Entered as Reported by: MUKUL MIR on 03/08/211653 Last Action: Discontinued on 03/30/211421 by KYA BAILEY Fexofenadine Hcl (Fexofenadine Hcl) 180 Mg Tablet, 180 MG PO DAILY for ALLERGIES, (Reported) Entered as Reported by: MUKUL MIR on 03/08/211653 Last Action: Discontinued on 03/30/211631 by KYA BAILEY Lovastatin (Lovastatin) 40 Mg Tablet, 40 MG PO HS for HIGH CHOLESTEROL , (Reported) Entered as Reported by: MUKUL MIR on 03/08/211653 Last Action: Discontinued on 03/30/211421 by KYA BAILEY Polyethylene Glycol 3350 (Miralax) 17 Gm Powd.pack, 1 PKT PO DAILY for CONSTIPATION , (Reported) Entered as Reported by: MUKUL MIR on 03/08/211653 Last Action: Discontinued on 03/30/211421 by KYA BAILEY Vit A/Vit C/Vit E/Zinc/Copper (Preservision Areds Tablet) 1 Each Tablet, 1 EACH PO DAILY for EYE VITAMIN , (Reported) Entered as Reported by: MUKUL MIR on 03/08/211653 Last Action: Discontinued on 03/30/211421 by KYA BAILEY Justicifation of Admission Dx: Justifications for Admission: Justification of Admission Dx: N/A VALDO LEY MD Apr 06, 2021 12:08
--- NOTE | 2021-04-06 12:12 | SNU/HH DC ---
DISCHARGE WITH HOME HEALTH DISCHARGE INFORMATION: Discharge Date: Apr 06, 2021 Condition on Discharge: Stable CODE STATUS: Code Status: Full HOME HEALTH: Face to Face: I certify this patient is under my care and that I, or a nurse practitioner or dimple burden's assistant boys track coach working with me, had a face to face encounter that meets the physician face to face encounter requirements with this patient on 04/06/2021. Medical Complications: S/P Joint Replacement (Septic right joint s/p joint replacement) RN For Eval/Treatment: Yes Physical Therapy For: Evalulation/Treatment Occupational Therapy For: Evaluation/Treatment Pt Meets Homebound Status: Poor coordination w/ amb., Extreme weakness w/ amb., Limited distance walking POST DISCHARGE ORDERS: Activity Instructions for Disc: Avoid exertion, Walk in house Weight Bearing Status after Di: As tolerated Bathing Instructions: Shower-keep dressing dry DIET AFTER DISCHARGE: Cardiac Wound/Incision Care: Ice to area for comfort, Keep wound/cast CDI, May get incision wet TREATMENT/EQUIPMENT ORDERS: Adaptive Equipment Issued: None CERTIFICATION STATEMENT: Certification Statement: Certification Statement: Based on the above finding, I certify that this patient is confined to the home and needs intermittent custodial care, physical therapy and/or speech therapy, or continues to need occupational therapy.~ This patient is under my care, and I have initiated the establishment of the plan of care.~ This patient will be followed by myself or a community physician who will periodically review the plan of care. Home Meds Active Scripts Hydrocodone/Acetaminophen (Hydrocodone-Acetamin 7.5-325) 1 Each Tablet, 1 EACH PO Q4HRS W/A PRN for PAIN for 7 Days, #42 TAB 0 Refills Prov:MAGDA DALTON DO 03/09/21 Reported Medications Pantoprazole Sodium (PANTOPRAZOLE SODIUM ) 40 Mg Tablet.dr, 40 MG PO DAILYAC for GERD, TAB 03/08/21 Propranolol Hcl (PROPRANOLOL HCL) 80 Mg Tablet, 80 MG PO DAILY for HIGH BLOOD PRESSURE, TAB 09/09/19 Citalopram Hydrobromide (CITALOPRAM HBR) 20 Mg Tablet, 20 MG PO DAILY for ANXIETY , TAB 09/09/19 Levothyroxine Sodium (LEVOTHYROXINE SODIUM) 50 Mcg Tablet, 50 MCG PO DAILY for hypothyroid 10/01/18 Discontinued Reported Medications Polyethylene Glycol 3350 (MIRALAX) 17 Gm Powd.pack, 1 PKT PO DAILY for CONSTIPATION , PKT 03/08/21 Lovastatin (LOVASTATIN) 40 Mg Tablet, 40 MG PO HS for HIGH CHOLESTEROL , TAB 03/08/21 Vit A/Vit C/Vit E/Zinc/Copper (PRESERVISION AREDS TABLET) 1 Each Tablet, 1 EACH PO DAILY for EYE VITAMIN , TAB 03/08/21 Fexofenadine Hcl (FEXOFENADINE HCL) 180 Mg Tablet, 180 MG PO DAILY for ALLERGIES, TAB 03/08/21 Cholecalciferol (Vitamin D3) (Vitamin D3) 50 Mcg Capsule, 50 MCG PO DAILY for VITAMIN, CAP 03/08/21 VALDO LEY MD Apr 06, 2021 12:12
[2021-04-06] MEDS ORDERED: OXYC1TAB22 PO (12:15)
--- NOTE | 2021-04-06 12:23 | NUR ---
SW following. Discussed with RN, pt decided on a payment plan with [facility] of $147 per month. Pt agreeable to [facility] [employer], pt accepted with [facility], awaiting teach. RN notified. SW will continue to follow. Addendum: 04/06/21 at 1440 by LIS ROSA Everything arranged with [facility] and [facility]. Ronald ([facility]) doing teach currently. RN notified. No further SW needs at this time.
--- NOTE | 2021-04-06 15:00 | NUR ---
DRESSING CHANGE COMPLETED TO RIGHT HIP AREA (XEROFORM, 4X4, ABD AND TAPE), 22 ERYN COUNTED PER THIS PIPE FITTER MAINTENANCE, REDNESS AROUND INCISION SITE, MODERATE AMOUNT OF SEROSANIOUS DRAINAGE NOTICED. PATIENT TOLERATED PROCEDURE WITH MINIMAL COMPLAINTS. DISCHARGE INSTRUCTIONS GIVEN, QUESTIONS AND CONCERNS ANSWERED, PATIENT AND VERBALIZED UNDERSTANDING OF DISCHARGE INFOMATION INCLUDING TAKING ALL MEDICATION INSTRUCTED AND FOLLOWING UP WITH HIS PRIMARY PROVIDER IN 1-2 WEEK.
--- NOTE | 2021-04-06 15:50 | NUR ---
PATIENT LEAVES THE UNIT PER W/C AND ACCOMPANIED BY THIS SHREDDER OPERATOR, EMOTIONAL SUPPORT GIVEN.
== END 2021-04-06 15:48 | disposition home health service (06) | DRG 480 ==
LOC: 4 NORTH 13:15 → 5 NORTH 04-02 18:13
PROVIDERS: ADMIT Internal Medicine; ATTEND Internal Medicine
PROC: 0S993ZZ Drainage of Right Hip Joint, Percutaneous Approach (ICD-10-PCS; principal; 2021-03-30)
PROC: 0SB90ZZ Excision of Right Hip Joint, Open Approach (ICD-10-PCS; 2021-03-31)
PROC: 02HV33Z Insertion of Infusion Device into Superior Vena Cava, Percutaneous Approach (ICD-10-PCS; 2021-04-05)
PROC: B518ZZA Fluoroscopy of Superior Vena Cava, Guidance (ICD-10-PCS; 2021-04-05)
PROC: B548ZZA Ultrasonography of Superior Vena Cava, Guidance (ICD-10-PCS; 2021-04-05)
DX: T84.51XA Infection and inflammatory reaction due to internal right hip prosthesis, initial encounter (principal); E43 Unspecified severe protein-calorie malnutrition; B95.5 Unspecified streptococcus as the cause of diseases classified elsewhere; E03.9 Hypothyroidism, unspecified; K21.9 Gastro-esophageal reflux disease without esophagitis; Y83.1 Surgical operation with implant of artificial internal device as the cause of abnormal reaction of the patient, or of later complication, without mention of misadventure at the time of the procedure; Z96.643 Presence of artificial hip joint, bilateral; Y92.89 Other specified places as the place of occurrence of the external cause; Z83.3 Family history of diabetes mellitus; Z68.39 Body mass index [BMI] 39.0-39.9, adult
CPT/HCPCS: 20610; 36415; 36573; 77001; 77002; 80053; 82550; 84550; 85025; 85651; 87040; 87071; 87075; 87077; 87176; 89050; 89060; A4930; A6253; A6402; C1892; J0696; J0878; J1100; J1650; J2270; J2370; J2405; J2543; J2704; J3010; J3490; J7120; 97110-GP; 97116-GP; 97535-GO; G0378